=== PATIENT | female | born 1935 | race Caucasian/White ===

== ENCOUNTER 2016-06-26 15:16 | Inpatient (IN) | payer OTHER ==
[2016-05-21 20:00] VITALS: BP 122/77
[~2016-06-26] VITALS: Ht 172.7 cm; Wt 106.9 kg
[~2016-06-26 15:16] MED LIST: CALC625T9 PO; DOCU100C8 PO; DULO30CA2 PO; FURO-93 PO; GABA100C PO; LEVO150T PO; LISI1TAB5 PO; OMEP20CA9 PO; SULF1TAB24 PO; VITA1CAP7 PO; VITAMIN D PO; ZOLP10TA5 PO; [UNRECOGNIZED DRUG - REMARK]
[2016-06-26] MEDS ORDERED: HYDROmorphone 1 MG/ML, 1ML IM STA (16:23)
[2016-06-26] MEDS ORDERED: ONDANSETRON ODT 4 MG PO ONE (16:30)
[2016-06-26] MEDS ORDERED: ONDANSETRON ODT 4 MG ONE (16:42)
[2016-06-26] MEDS ORDERED: HYDROmorphone 1 MG/ML, 1ML ONE (16:43)
[2016-06-26] MEDS ORDERED: SODIUM CHLORIDE FLUSH 10ML SYR IVF ONE (17:30)
[2016-06-26 18:09] LABS: ASPARTATE AMINO TRANSFERASE 13 U/L (15-37); BLOOD UREA NITROGEN 70 mg/dL (7-18)
[2016-06-26] MEDS: SODIUM CHLORIDE 0.9% 1,000 ML IV SCH (19:09)
[2016-06-26 19:27] VITALS: BP 111/66
[2016-06-26 19:28] VITALS: BP 111/66
[2016-06-26] MEDS ORDERED: ENALAPRILAT 1.25 MG/ML, 2ML IVPush PRN (19:30)
[2016-06-26] MEDS ORDERED: MORPHINE SULFATE 4 MG/ML, 1ML IVPush PRN (19:30)
[2016-06-26] MEDS: FUROSEMIDE 20 MG TABLET PO SCH (21:00)
[2016-06-26] MEDS ORDERED: HYDROmorphone 1 MG/ML, 1ML IV SCH (21:00)
[2016-06-26] MEDS: ZOLPIDEM 10MG TABLET PO SCH (22:25)
[2016-06-26] MEDS: GABAPENTIN 100 MG CAPSULE PO SCH (22:25)
[2016-06-26] MEDS: HYDROmorphone 1 MG/ML, 1ML IV PRN (22:25)
[2016-06-26] MEDS: HEPARIN 5,000 UNITS/ML, 1ML SQ SCH (22:25)
[2016-06-27 02:06] VITALS: BP 122/76
[2016-06-27 05:36] LABS: BLOOD UREA NITROGEN 60 mg/dL (7-18)
[2016-06-27] MEDS: HEPARIN 5,000 UNITS/ML, 1ML SQ SCH ×3 (07:00→22:09)
[2016-06-27 07:31] VITALS: BP 99/62
[2016-06-27] MEDS: FUROSEMIDE 20 MG TABLET PO SCH ×2 (09:00→20:46)
[2016-06-27] MEDS ORDERED: VITAMIN B COMPLEX PO SCH (09:00)
[2016-06-27] MEDS ORDERED: VITAMIN D PO SCH (09:00)
[2016-06-27] MEDS: LEVOTHYROXINE 150 MCG TABLET PO SCH (09:05)
[2016-06-27] MEDS: SENNA/DOCUSATE TABLET PO SCH (09:05)
[2016-06-27] MEDS: LISINOPRIL 20 MG TABLET PO SCH (09:06)
[2016-06-27] MEDS: GABAPENTIN 100 MG CAPSULE PO SCH ×3 (09:06→20:47)
[2016-06-27] MEDS: HYDROCHLOROTHIAZIDE 12.5 MG CAPSULE PO SCH (09:06)
[2016-06-27] MEDS: DULOXETINE 30 MG CAPSULE.DR PO SCH (09:07)
[2016-06-27] MEDS: HYDROmorphone 1 MG/ML, 1ML IV PRN (12:28)
[2016-06-27 12:47] VITALS: BP 106/67
[2016-06-27] MEDS ORDERED: DILAUDID PUMP HOMEINJ SCH (13:00)
[2016-06-27] MEDS: SODIUM CHLORIDE 0.9% 1,000 ML IV SCH (15:25)
[2016-06-27] MEDS: OXYcodone/APAP 5/325MG TABLET PO PRN ×2 (16:06→22:09)
[2016-06-27 20:43] VITALS: BP 100/75
[2016-06-27] MEDS: ZOLPIDEM 10MG TABLET PO SCH (20:47)
[2016-06-28 03:05] VITALS: BP 121/72
[2016-06-28] MEDS: OXYcodone/APAP 5/325MG TABLET PO PRN ×3 (03:10→16:58)
[2016-06-28] MEDS: HEPARIN 5,000 UNITS/ML, 1ML SQ SCH ×3 (05:58→22:00)
[2016-06-28] MEDS: LEVOTHYROXINE 150 MCG TABLET PO SCH (05:58)
[2016-06-28 08:34] VITALS: BP 100/65
[2016-06-28] MEDS: LISINOPRIL 20 MG TABLET PO SCH (09:00)
[2016-06-28] MEDS: GABAPENTIN 100 MG CAPSULE PO SCH ×3 (09:31→21:38)
[2016-06-28] MEDS: FUROSEMIDE 20 MG TABLET PO SCH ×2 (09:31→21:00)
[2016-06-28] MEDS: DULOXETINE 30 MG CAPSULE.DR PO SCH (09:31)
[2016-06-28] MEDS: HYDROCHLOROTHIAZIDE 12.5 MG CAPSULE PO SCH (09:31)
[2016-06-28] MEDS: SENNA/DOCUSATE TABLET PO SCH (09:32)
[2016-06-28 15:36] VITALS: BP 98/61
[2016-06-28] MEDS ORDERED: SODIUM CHLORIDE 0.9% 1,000 ML IV SCH (19:09)
[2016-06-28 19:30] VITALS: BP 109/67
[2016-06-28] MEDS: ZOLPIDEM 10MG TABLET PO SCH (21:38)
[2016-06-29 01:45] VITALS: BP_SYST 109; BP_SYST 61; BP_DIAS 72; BP_DIAS 83
[2016-06-29] MEDS: LEVOTHYROXINE 150 MCG TABLET PO SCH (05:36)
[2016-06-29] MEDS: HEPARIN 5,000 UNITS/ML, 1ML SQ SCH ×3 (05:39→22:02)
[2016-06-29 06:58] VITALS: BP 130/78
[2016-06-29] MEDS: SENNA/DOCUSATE TABLET PO SCH (09:00)
[2016-06-29] MEDS: FUROSEMIDE 20 MG TABLET PO SCH ×2 (09:24→21:00)
[2016-06-29] MEDS: DULOXETINE 30 MG CAPSULE.DR PO SCH (09:25)
[2016-06-29] MEDS: HYDROCHLOROTHIAZIDE 12.5 MG CAPSULE PO SCH (09:25)
[2016-06-29] MEDS: OXYcodone/APAP 5/325MG TABLET PO PRN ×2 (09:26→14:19)
[2016-06-29] MEDS: LISINOPRIL 20 MG TABLET PO SCH (09:26)
[2016-06-29] MEDS: GABAPENTIN 100 MG CAPSULE PO SCH ×3 (09:26→21:59)
[2016-06-29 12:44] VITALS: BP 147/79
[2016-06-29 20:01] VITALS: BP 122/77
[2016-06-29] MEDS: ZOLPIDEM 10MG TABLET PO SCH (21:58)
[2016-06-30 02:09] VITALS: BP 138/80
[2016-06-30 05:35] LABS: BLOOD UREA NITROGEN 20 mg/dL (7-18)
[2016-06-30] MEDS: LEVOTHYROXINE 150 MCG TABLET PO SCH (05:43)
[2016-06-30] MEDS: HEPARIN 5,000 UNITS/ML, 1ML SQ SCH ×3 (05:46→22:18)
[2016-06-30 07:19] VITALS: BP 142/80
[2016-06-30] MEDS: SENNA/DOCUSATE TABLET PO SCH (08:44)
[2016-06-30] MEDS: FUROSEMIDE 20 MG TABLET PO SCH ×2 (08:44→21:00)
[2016-06-30] MEDS: OXYcodone/APAP 5/325MG TABLET PO PRN ×3 (08:53→19:35)
[2016-06-30] MEDS: HYDROCHLOROTHIAZIDE 12.5 MG CAPSULE PO SCH (08:54)
[2016-06-30] MEDS: DULOXETINE 30 MG CAPSULE.DR PO SCH (08:54)
[2016-06-30] MEDS: LISINOPRIL 20 MG TABLET PO SCH (08:54)
[2016-06-30] MEDS: GABAPENTIN 100 MG CAPSULE PO SCH (08:54)
[2016-06-30 12:52] VITALS: BP 107/69
[2016-06-30] MEDS: GABAPENTIN 300 MG CAPSULE PO SCH ×2 (16:03→22:15)
[2016-06-30 20:26] VITALS: BP 141/80
[2016-06-30] MEDS: ZOLPIDEM 10MG TABLET PO SCH (22:07)
[2016-07-01 01:12] VITALS: BP 151/84
[2016-07-01] MEDS: LEVOTHYROXINE 150 MCG TABLET PO SCH (06:21)
[2016-07-01] MEDS: HEPARIN 5,000 UNITS/ML, 1ML SQ SCH ×3 (06:24→22:38)
[2016-07-01 07:38] VITALS: BP 155/86
[2016-07-01] MEDS: DULOXETINE 30 MG CAPSULE.DR PO SCH (08:30)
[2016-07-01] MEDS: GABAPENTIN 300 MG CAPSULE PO SCH ×3 (08:43→22:38)
[2016-07-01] MEDS: LISINOPRIL 20 MG TABLET PO SCH (08:43)
[2016-07-01] MEDS: HYDROCHLOROTHIAZIDE 12.5 MG CAPSULE PO SCH (08:43)
[2016-07-01] MEDS: OXYcodone/APAP 5/325MG TABLET PO PRN ×3 (08:43→22:38)
[2016-07-01] MEDS: FUROSEMIDE 20 MG TABLET PO SCH ×2 (08:43→21:00)
[2016-07-01] MEDS: SENNA/DOCUSATE TABLET PO SCH (08:45)
[2016-07-01 14:24] VITALS: BP 92/48
[2016-07-01 15:35] VITALS: BP 112/54
[2016-07-01 21:35] VITALS: BP 130/60
[2016-07-01] MEDS: ZOLPIDEM 10MG TABLET PO SCH (22:38)
[2016-07-02] MEDS: OXYcodone/APAP 5/325MG TABLET PO PRN ×3 (03:46→13:36)
[2016-07-02 03:48] VITALS: BP 134/71
[2016-07-02] MEDS: HEPARIN 5,000 UNITS/ML, 1ML SQ SCH ×2 (06:41→15:32)
[2016-07-02] MEDS: LEVOTHYROXINE 150 MCG TABLET PO SCH (06:41)
[2016-07-02 07:10] VITALS: BP 142/67
[2016-07-02] MEDS ORDERED: OXYBUTYNIN CHLORIDE 5 MG TABLET PO SCH (09:00)
[2016-07-02] MEDS: FUROSEMIDE 20 MG TABLET PO SCH (09:00)
[2016-07-02] MEDS: SENNA/DOCUSATE TABLET PO SCH (09:00)
[2016-07-02] MEDS: GABAPENTIN 300 MG CAPSULE PO SCH ×2 (09:37→15:32)
[2016-07-02] MEDS: LISINOPRIL 20 MG TABLET PO SCH (09:37)
[2016-07-02] MEDS: DULOXETINE 30 MG CAPSULE.DR PO SCH (09:37)
[2016-07-02] MEDS: HYDROCHLOROTHIAZIDE 12.5 MG CAPSULE PO SCH (09:38)
[2016-07-02 12:55] VITALS: BP 97/62
[2016-07-02] MEDS ORDERED: FURO-93 PO (14:00)
[2016-07-02] MEDS ORDERED: OXYB5TAB7 PO (14:00)
== END 2016-07-02 16:30 | DRG 554 ==
LOC: ED 15:52 → EDIP 17:35 → 3NE 18:34
PROVIDERS: ADMIT Family Medicine; ATTEND Family Medicine
DX: M15.9 Polyosteoarthritis, unspecified (principal); N17.9 Acute kidney failure, unspecified; E66.01 Morbid (severe) obesity due to excess calories; D63.8 Anemia in other chronic diseases classified elsewhere; E03.9 Hypothyroidism, unspecified; E86.0 Dehydration; G89.29 Other chronic pain; J44.9 Chronic obstructive pulmonary disease, unspecified; N32.81 Overactive bladder; R32 Unspecified urinary incontinence; Z66 Do not resuscitate; Z96.642 Presence of left artificial hip joint; Z87.891 Personal history of nicotine dependence; Z88.5 Allergy status to narcotic agent; Z91.048 Other nonmedicinal substance allergy status; Z68.35 Body mass index [BMI] 35.0-35.9, adult; Z83.3 Family history of diabetes mellitus; Z82.49 Family history of ischemic heart disease and other diseases of the circulatory system; Z79.899 Other long term (current) drug therapy; R53.81 Other malaise; I10 Essential (primary) hypertension
CPT/HCPCS: 36415; 80048; 80053; 85025; 93005; J1170; J1644; Q0162; J7030

== ENCOUNTER → 2017-02-19 | Outpatient (CLI) | payer OTHER ==
[~2017-02-19] MED LIST changes: +ACET-1600 PO; +DOCU100C33 PO; -DOCU100C8 PO; +FLUT1BLS INH; +GABA-826 PO; +OXYB5TAB7 PO; +OXYC20TA42 PO; +OXYC5TAB3 PO
== END ==
LOC: CFH 13:22
PROVIDERS: ATTEND Internal Medicine Cardiovascular Disease
DX: Z01.818 Encounter for other preprocedural examination (principal); I08.0 Rheumatic disorders of both mitral and aortic valves
CPT/HCPCS: 93306

== ENCOUNTER → 2017-02-24 | Outpatient (CLI) | payer OTHER | LOC: CVU 10:06 | PROVIDERS: ATTEND Internal Medicine Cardiovascular Disease | DX: Z01.810 Encounter for preprocedural cardiovascular examination (principal); I35.0 Nonrheumatic aortic (valve) stenosis; R60.0 Localized edema; G62.9 Polyneuropathy, unspecified | CPT/HCPCS: 93970 ==

== ENCOUNTER → 2017-03-22 | Outpatient (CLI) | payer OTHER ==
[~2017-03-22] MED LIST changes: +REGADENOSON 0.4 MG/5 ML SYRINGE ONE
== END | disposition home or self-care (01) ==
LOC: RAD 11:47
PROVIDERS: ATTEND Internal Medicine Cardiovascular Disease
DX: Z01.810 Encounter for preprocedural cardiovascular examination (principal); I35.0 Nonrheumatic aortic (valve) stenosis; R06.02 Shortness of breath; R60.9 Edema, unspecified
CPT/HCPCS: 78452; 93017; A9502; J2785

== ENCOUNTER → 2017-07-07 | Outpatient (CLI) | payer OTHER ==
[~2017-07-07] MED LIST changes: +FLUO10CA7 PO; +GABA800T2 PO; +NAPR220C2 PO; +OMEP20TA62 PO; +OMNIPAQUE 350 MG/ML, 150 ML BOTTLE ONE; -REGADENOSON 0.4 MG/5 ML SYRINGE ONE
== END ==
LOC: RAD 09:59
PROVIDERS: ATTEND Internal Medicine Cardiovascular Disease
DX: Z01.818 Encounter for other preprocedural examination (principal); J98.11 Atelectasis; J43.9 Emphysema, unspecified; K76.0 Fatty (change of) liver, not elsewhere classified; I10 Essential (primary) hypertension; I25.10 Atherosclerotic heart disease of native coronary artery without angina pectoris; K57.90 Diverticulosis of intestine, part unspecified, without perforation or abscess without bleeding; I70.0 Atherosclerosis of aorta; M16.11 Unilateral primary osteoarthritis, right hip
CPT/HCPCS: 71275; 74174; 93880; 94060; 94726; 94729; Q9967

== ENCOUNTER → 2017-09-13 | Outpatient (CLI) | payer OTHER ==
[~2017-09-13] MED LIST changes: -OMNIPAQUE 350 MG/ML, 150 ML BOTTLE ONE
== END | disposition home or self-care (01) ==
LOC: WOUND 10:30
PROVIDERS: ATTEND Internal Medicine
DX: I87.333 Chronic venous hypertension (idiopathic) with ulcer and inflammation of bilateral lower extremity (principal); L97.222 Non-pressure chronic ulcer of left calf with fat layer exposed; L97.212 Non-pressure chronic ulcer of right calf with fat layer exposed; I89.0 Lymphedema, not elsewhere classified; K21.9 Gastro-esophageal reflux disease without esophagitis; J43.9 Emphysema, unspecified; M16.11 Unilateral primary osteoarthritis, right hip; I25.10 Atherosclerotic heart disease of native coronary artery without angina pectoris; F32.9 Major depressive disorder, single episode, unspecified; E03.9 Hypothyroidism, unspecified; G62.9 Polyneuropathy, unspecified; Z90.710 Acquired absence of both cervix and uterus; Z87.891 Personal history of nicotine dependence
CPT/HCPCS: 87070; 87077; 87186; 87205; 97597; 97598

== ENCOUNTER → 2017-09-20 | Outpatient (CLI) | payer OTHER | END | disposition home or self-care (01) | LOC: WOUND 10:40 | PROVIDERS: ATTEND Internal Medicine | DX: I87.333 Chronic venous hypertension (idiopathic) with ulcer and inflammation of bilateral lower extremity (principal); L97.222 Non-pressure chronic ulcer of left calf with fat layer exposed; L97.212 Non-pressure chronic ulcer of right calf with fat layer exposed; I89.0 Lymphedema, not elsewhere classified; K21.9 Gastro-esophageal reflux disease without esophagitis; J43.9 Emphysema, unspecified; M16.11 Unilateral primary osteoarthritis, right hip; I25.10 Atherosclerotic heart disease of native coronary artery without angina pectoris; F32.9 Major depressive disorder, single episode, unspecified; E03.9 Hypothyroidism, unspecified; G62.9 Polyneuropathy, unspecified; Z90.710 Acquired absence of both cervix and uterus; Z87.891 Personal history of nicotine dependence | CPT/HCPCS: 97597; 97598 ==

== ENCOUNTER 2017-10-04 14:09 | Inpatient (IN) | payer OTHER ==
[~2017-10-04] VITALS: Ht 172.7 cm; Wt 111.5 kg
[~2017-10-04 14:09] MED LIST changes: -DOXY100T PO; -LEVO750T26 PO
[2017-10-04] MEDS ORDERED: SODIUM CHLORIDE FLUSH 10ML SYR IVF ONE (14:30)
[2017-10-04 14:49] LABS: BASOPHILS # (AUTO) 0.03 x10^3/uL (0-0.1); BASOPHILS % (AUTO) 0 % (0-1); EOSINOPHILS # (AUTO) 0.14 x10^3/uL (0-0.4); EOSINOPHILS % (AUTO) 2 % (1-7); LYMPHOCYTES # (AUTO) 0.99 x10^3/uL (1-3.4); LYMPHOCYTES % (AUTO) 13 % (22-44); MD NO; MEAN CORPUSCULAR HEMOGLOBIN 29.1 pg (27.0-34.8); MEAN CORPUSCULAR HGB CONC 32.9 g/dL (32.4-35.8); MEAN CORPUSCULAR VOLUME 88.4 fL (80-100); MEAN PLATELET VOLUME 6.7 fL (7.4-10.4); MONOCYTES # (AUTO) 0.45 x10^3/uL (0.2-0.8); MONOCYTES % (AUTO) 6 % (2-9); NEUTROPHILS % (AUTO) 78 % (42-75); PLATELET COUNT 448 x10^3/uL (130-400); RED BLOOD COUNT 5.04 x10^6/uL (3.82-5.3); RED CELL DISTRIBUTION WIDTH 15.2 % (9.6-15.2)
[2017-10-04 15:00] LABS: ALANINE AMINOTRANSFERASE 15 U/L (12-78); ALBUMIN 3.8 g/dL (3.4-5.0); ANION GAP 10 mmol/L (5-15); CALCIUM 9.4 mg/dL (8.5-10.1); CHLORIDE 96 mmol/L (98-107); CREATININE 1.05 mg/dL (0.55-1.02)
[2017-10-04 15:04] LABS: ALKALINE PHOSPHATASE 84 U/L (45-117); BILIRUBIN,TOTAL 0.4 mg/dL (0.2-1.0); TOTAL PROTEIN 7.9 g/dL (6.4-8.2)
[2017-10-04] MEDS ORDERED: AMPICILLIN/SULBACTAM 3 GM in SODIUM CHLORIDE 0.9% 100 ML IV ONE (17:30)
[2017-10-04 18:27] VITALS: BP 158/87
[2017-10-04 19:10] VITALS: BP 134/77
[2017-10-04] MEDS ORDERED: SODIUM CHLORIDE 0.9% 1,000 ML IV SCH (19:35)
[2017-10-04] MEDS ORDERED: ONDANSETRON ODT 4 MG PO PRN (20:00)
[2017-10-04] MEDS ORDERED: POLYETHYLENE GLYCOL 17 GM PACKET PO PRN (20:00)
[2017-10-04] MEDS ORDERED: DOCUSATE 100 MG CAPSULE PO PRN (20:00)
[2017-10-04] MEDS ORDERED: ONDANSETRON 2MG/ML, 2ML IVPush PRN (20:00)
[2017-10-04] MEDS: ENOXAPARIN 40 MG/0.4 ML SQ SCH (20:07)
[2017-10-04] MEDS: GABAPENTIN 400 MG CAPSULE PO SCH (20:07)
[2017-10-04] MEDS: DIPHENHYDRAMINE/ZINC CRM 2%, 30GM TP SCH (21:00)
[2017-10-05 01:02] VITALS: BP 113/74
[2017-10-05 04:50] LABS: BASOPHILS # (AUTO) 0.06 x10^3/uL (0-0.1); BASOPHILS % (AUTO) 1 % (0-1); EOSINOPHILS # (AUTO) 0.17 x10^3/uL (0-0.4); EOSINOPHILS % (AUTO) 3 % (1-7); LYMPHOCYTES # (AUTO) 1.16 x10^3/uL (1-3.4); LYMPHOCYTES % (AUTO) 19 % (22-44); MD NO; MEAN CORPUSCULAR HEMOGLOBIN 29.5 pg (27.0-34.8); MEAN CORPUSCULAR HGB CONC 33.1 g/dL (32.4-35.8); MEAN PLATELET VOLUME 6.7 fL (7.4-10.4); MONOCYTES # (AUTO) 0.58 x10^3/uL (0.2-0.8); MONOCYTES % (AUTO) 10 % (2-9); NEUTROPHILS # (AUTO) 4.11 x10^3/uL (1.8-6.8); NEUTROPHILS % (AUTO) 68 % (42-75); PLATELET COUNT 387 x10^3/uL (130-400); RED CELL DISTRIBUTION WIDTH 15.1 % (9.6-15.2)
[2017-10-05] MEDS: DIPHENHYDRAMINE/ZINC CRM 2%, 30GM TP SCH ×5 (05:33→20:48)
[2017-10-05] MEDS: LEVOTHYROXINE 150 MCG TABLET PO SCH (06:12)
[2017-10-05 07:02] VITALS: BP 98/61
[2017-10-05 08:20] LABS: HCT (SEDRATE) 38.5 % (34.6-47.8)
[2017-10-05] MEDS: CALCIUM POLYCARBOPHIL 625 MG TABLET PO SCH (08:21)
[2017-10-05] MEDS: DULOXETINE 30 MG CAPSULE.DR PO SCH (08:21)
[2017-10-05] MEDS: GABAPENTIN 400 MG CAPSULE PO SCH ×3 (08:21→20:44)
[2017-10-05] MEDS: OMEPRAZOLE 20 MG CAPSULE.DR PO SCH (08:21)
[2017-10-05] MEDS: HYDROCHLOROTHIAZIDE 12.5 MG CAPSULE PO SCH (08:22)
[2017-10-05] MEDS: FLUOXETINE 10 MG CAP PO SCH (08:22)
[2017-10-05] MEDS: LISINOPRIL 20 MG TABLET PO SCH (08:22)
[2017-10-05 12:04] VITALS: BP 86/50
[2017-10-05 12:10] VITALS: BP 93/59
[2017-10-05 18:53] VITALS: BP 93/58
[2017-10-05] MEDS: ENOXAPARIN 40 MG/0.4 ML SQ SCH (20:44)
[2017-10-06 00:12] VITALS: BP 98/61
[2017-10-06] MEDS: LEVOTHYROXINE 150 MCG TABLET PO SCH (06:25)
[2017-10-06] MEDS: DIPHENHYDRAMINE/ZINC CRM 2%, 30GM TP SCH ×4 (06:27→19:40)
[2017-10-06 06:50] VITALS: BP 102/60
[2017-10-06] MEDS: GABAPENTIN 400 MG CAPSULE PO SCH ×3 (08:27→19:40)
[2017-10-06] MEDS: OMEPRAZOLE 20 MG CAPSULE.DR PO SCH (08:27)
[2017-10-06] MEDS: CALCIUM POLYCARBOPHIL 625 MG TABLET PO SCH (08:27)
[2017-10-06] MEDS: DULOXETINE 30 MG CAPSULE.DR PO SCH (08:27)
[2017-10-06] MEDS: FLUOXETINE 10 MG CAP PO SCH (08:28)
[2017-10-06] MEDS: LISINOPRIL 20 MG TABLET PO SCH (08:28)
[2017-10-06] MEDS: HYDROCHLOROTHIAZIDE 12.5 MG CAPSULE PO SCH (08:30)
[2017-10-06] MEDS ORDERED: DOXY100T PO (08:44)
[2017-10-06 13:54] VITALS: BP 129/66
[2017-10-06 14:07] VITALS: BP 92/57
[2017-10-06 18:40] VITALS: BP 102/63
[2017-10-06] MEDS: ENOXAPARIN 40 MG/0.4 ML SQ SCH (19:39)
[2017-10-06] MEDS ORDERED: VANCOMYCIN PER PHARMACY MC PRN (20:30)
[2017-10-06] MEDS ORDERED: PHARMACOKINETIC MONITORING MC PRN (21:00)
[2017-10-06] MEDS ORDERED: PHARMACOKINETIC CONSULTATION MC ONE (21:00)
[2017-10-06] MEDS ORDERED: CIPROFLOXACIN/PMX 400MG/200ML 200 ML IV SCH (21:00)
[2017-10-06] MEDS: AMPICILLIN 500MG CAPSULE PO SCH (22:21)
[2017-10-06] MEDS: CIPROFLOXACIN 500 MG TABLET PO SCH (22:21)
[2017-10-06] MEDS ORDERED: VANCOMYCIN 2,000 MG in SODIUM CHLORIDE 0.9% 500 ML IV SCH (23:00)
[2017-10-07 00:25] VITALS: BP 98/56
[2017-10-07] MEDS: LEVOTHYROXINE 150 MCG TABLET PO SCH (05:30)
[2017-10-07] MEDS: AMPICILLIN 500MG CAPSULE PO SCH ×4 (05:30→21:12)
[2017-10-07] MEDS: DIPHENHYDRAMINE/ZINC CRM 2%, 30GM TP SCH ×4 (05:33→21:15)
[2017-10-07 06:46] VITALS: BP 113/76
[2017-10-07] MEDS: LISINOPRIL 20 MG TABLET PO SCH (09:00)
[2017-10-07] MEDS: CALCIUM POLYCARBOPHIL 625 MG TABLET PO SCH (09:12)
[2017-10-07] MEDS: GABAPENTIN 400 MG CAPSULE PO SCH ×3 (09:12→21:12)
[2017-10-07] MEDS: CIPROFLOXACIN 500 MG TABLET PO SCH ×2 (09:12→21:12)
[2017-10-07] MEDS: FLUOXETINE 10 MG CAP PO SCH (09:13)
[2017-10-07] MEDS: OMEPRAZOLE 20 MG CAPSULE.DR PO SCH (09:14)
[2017-10-07] MEDS: HYDROCHLOROTHIAZIDE 12.5 MG CAPSULE PO SCH (09:14)
[2017-10-07] MEDS: DULOXETINE 30 MG CAPSULE.DR PO SCH (09:14)
[2017-10-07 12:56] VITALS: BP 96/66
[2017-10-07 19:33] VITALS: BP 99/66
[2017-10-07] MEDS: ENOXAPARIN 40 MG/0.4 ML SQ SCH (21:12)
[2017-10-08 01:15] VITALS: BP 103/57
[2017-10-08 04:58] LABS: BASOPHILS # (AUTO) 0.07 x10^3/uL (0-0.1); BASOPHILS % (AUTO) 1 % (0-1); EOSINOPHILS # (AUTO) 0.15 x10^3/uL (0-0.4); EOSINOPHILS % (AUTO) 2 % (1-7); LYMPHOCYTES # (AUTO) 1.01 x10^3/uL (1-3.4); LYMPHOCYTES % (AUTO) 15 % (22-44); MD NO; MEAN CORPUSCULAR HEMOGLOBIN 29.4 pg (27.0-34.8); MEAN CORPUSCULAR HGB CONC 32.9 g/dL (32.4-35.8); MEAN CORPUSCULAR VOLUME 89.4 fL (80-100); MEAN PLATELET VOLUME 6.6 fL (7.4-10.4); MONOCYTES # (AUTO) 0.58 x10^3/uL (0.2-0.8); MONOCYTES % (AUTO) 8 % (2-9); NEUTROPHILS # (AUTO) 5.14 x10^3/uL (1.8-6.8); NEUTROPHILS % (AUTO) 74 % (42-75); PLATELET COUNT 384 x10^3/uL (130-400); RED BLOOD COUNT 4.36 x10^6/uL (3.82-5.3); RED CELL DISTRIBUTION WIDTH 14.7 % (9.6-15.2)
[2017-10-08 05:07] LABS: ANION GAP 3 mmol/L (5-15); CALCIUM 8.2 mg/dL (8.5-10.1); CHLORIDE 97 mmol/L (98-107); CREATININE 0.87 mg/dL (0.55-1.02)
[2017-10-08] MEDS: LEVOTHYROXINE 150 MCG TABLET PO SCH (05:31)
[2017-10-08] MEDS: AMPICILLIN 500MG CAPSULE PO SCH ×2 (05:31→10:22)
[2017-10-08] MEDS: DIPHENHYDRAMINE/ZINC CRM 2%, 30GM TP SCH ×2 (05:32→10:22)
[2017-10-08 07:02] VITALS: BP 110/73
[2017-10-08] MEDS: CIPROFLOXACIN 500 MG TABLET PO SCH (07:43)
[2017-10-08] MEDS: FLUOXETINE 10 MG CAP PO SCH (07:43)
[2017-10-08] MEDS: GABAPENTIN 400 MG CAPSULE PO SCH (07:43)
[2017-10-08] MEDS: CALCIUM POLYCARBOPHIL 625 MG TABLET PO SCH (07:43)
[2017-10-08] MEDS: HYDROCHLOROTHIAZIDE 12.5 MG CAPSULE PO SCH (07:43)
[2017-10-08] MEDS: OMEPRAZOLE 20 MG CAPSULE.DR PO SCH (07:43)
[2017-10-08] MEDS: DULOXETINE 30 MG CAPSULE.DR PO SCH (07:44)
[2017-10-08] MEDS: LISINOPRIL 20 MG TABLET PO SCH (07:44)
[2017-10-08] MEDS ORDERED: LEVO750T26 PO (13:22)
== END 2017-10-08 13:17 | disposition home health service (06) | DRG 605 ==
LOC: ED 17:50 → EDIP 17:59 → 3NE 18:10
PROVIDERS: ADMIT Hospitalist; ATTEND Hospitalist
DX: S81.802A Unspecified open wound, left lower leg, initial encounter (principal); F11.20 Opioid dependence, uncomplicated; S81.801A Unspecified open wound, right lower leg, initial encounter; E03.9 Hypothyroidism, unspecified; G89.4 Chronic pain syndrome; I12.9 Hypertensive chronic kidney disease with stage 1 through stage 4 chronic kidney disease, or unspecified chronic kidney disease; B96.5 Pseudomonas (aeruginosa) (mallei) (pseudomallei) as the cause of diseases classified elsewhere; M19.90 Unspecified osteoarthritis, unspecified site; R26.2 Difficulty in walking, not elsewhere classified; J44.9 Chronic obstructive pulmonary disease, unspecified; B95.2 Enterococcus as the cause of diseases classified elsewhere; N18.9 Chronic kidney disease, unspecified; E66.9 Obesity, unspecified; X58.XXXA Exposure to other specified factors, initial encounter; Z87.891 Personal history of nicotine dependence; Z90.710 Acquired absence of both cervix and uterus; Z90.49 Acquired absence of other specified parts of digestive tract; Z88.5 Allergy status to narcotic agent; Z88.8 Allergy status to other drugs, medicaments and biological substances; Z72.89 Other problems related to lifestyle; Z79.899 Other long term (current) drug therapy; Y93.89 Activity, other specified; Y92.89 Other specified places as the place of occurrence of the external cause; Y99.8 Other external cause status; Z68.37 Body mass index [BMI] 37.0-37.9, adult
CPT/HCPCS: 36415; 80048; 80053; 83605; 83880; 84145; 85025; 85651; 86140; 87040; 87070; 87205; 99285; J0295; J1650; J7030

== ENCOUNTER → 2017-10-04 | Outpatient (CLI) | payer OTHER ==
[~2017-10-04] MED LIST changes: +DOXY100T PO; +LEVO750T26 PO
== END | disposition home or self-care (01) ==
LOC: WOUND 13:33
PROVIDERS: ATTEND Internal Medicine
DX: I87.333 Chronic venous hypertension (idiopathic) with ulcer and inflammation of bilateral lower extremity (principal); L97.222 Non-pressure chronic ulcer of left calf with fat layer exposed; L97.212 Non-pressure chronic ulcer of right calf with fat layer exposed; I89.0 Lymphedema, not elsewhere classified; K21.9 Gastro-esophageal reflux disease without esophagitis; J43.9 Emphysema, unspecified; M16.11 Unilateral primary osteoarthritis, right hip; I25.10 Atherosclerotic heart disease of native coronary artery without angina pectoris; F32.9 Major depressive disorder, single episode, unspecified; E03.9 Hypothyroidism, unspecified; G62.9 Polyneuropathy, unspecified; G89.4 Chronic pain syndrome; Z90.710 Acquired absence of both cervix and uterus; Z87.891 Personal history of nicotine dependence
CPT/HCPCS: 87070; 87077; 87186; 87205; 99215

== ENCOUNTER → 2017-10-19 | Outpatient (CLI) | payer OTHER ==
[~2017-10-19] MED LIST changes: +DOXY100T PO; +LEVO750T26 PO
== END | disposition home or self-care (01) ==
LOC: WOUND 13:00
PROVIDERS: ATTEND Nurse Practitioner Family
DX: I87.333 Chronic venous hypertension (idiopathic) with ulcer and inflammation of bilateral lower extremity (principal); L97.222 Non-pressure chronic ulcer of left calf with fat layer exposed; L97.212 Non-pressure chronic ulcer of right calf with fat layer exposed; I89.0 Lymphedema, not elsewhere classified; G89.4 Chronic pain syndrome; E03.9 Hypothyroidism, unspecified; E66.9 Obesity, unspecified; M19.90 Unspecified osteoarthritis, unspecified site; I25.10 Atherosclerotic heart disease of native coronary artery without angina pectoris; J43.9 Emphysema, unspecified; K21.9 Gastro-esophageal reflux disease without esophagitis; F32.9 Major depressive disorder, single episode, unspecified; G62.9 Polyneuropathy, unspecified; I12.9 Hypertensive chronic kidney disease with stage 1 through stage 4 chronic kidney disease, or unspecified chronic kidney disease; N18.9 Chronic kidney disease, unspecified; M16.11 Unilateral primary osteoarthritis, right hip; F11.20 Opioid dependence, uncomplicated; Z88.5 Allergy status to narcotic agent; Z88.8 Allergy status to other drugs, medicaments and biological substances; Z90.49 Acquired absence of other specified parts of digestive tract; Z90.710 Acquired absence of both cervix and uterus; Z87.891 Personal history of nicotine dependence; Z79.899 Other long term (current) drug therapy
CPT/HCPCS: 97597; 97598

== ENCOUNTER → 2017-10-27 | Outpatient (CLI) | payer OTHER | END | disposition home or self-care (01) | LOC: WOUND 13:49 | PROVIDERS: ATTEND Internal Medicine | DX: I87.333 Chronic venous hypertension (idiopathic) with ulcer and inflammation of bilateral lower extremity (principal); L97.212 Non-pressure chronic ulcer of right calf with fat layer exposed; L97.222 Non-pressure chronic ulcer of left calf with fat layer exposed; I12.9 Hypertensive chronic kidney disease with stage 1 through stage 4 chronic kidney disease, or unspecified chronic kidney disease; N18.9 Chronic kidney disease, unspecified; F32.9 Major depressive disorder, single episode, unspecified; G89.4 Chronic pain syndrome; J43.9 Emphysema, unspecified; I89.0 Lymphedema, not elsewhere classified; G62.9 Polyneuropathy, unspecified; K21.9 Gastro-esophageal reflux disease without esophagitis; E03.9 Hypothyroidism, unspecified; M16.11 Unilateral primary osteoarthritis, right hip; I25.10 Atherosclerotic heart disease of native coronary artery without angina pectoris; E66.9 Obesity, unspecified; Z68.37 Body mass index [BMI] 37.0-37.9, adult; Z88.5 Allergy status to narcotic agent; Z90.710 Acquired absence of both cervix and uterus; Z90.49 Acquired absence of other specified parts of digestive tract; Z87.891 Personal history of nicotine dependence; Z88.8 Allergy status to other drugs, medicaments and biological substances | CPT/HCPCS: 97597; 97598 ==

== ENCOUNTER → 2017-10-29 | Outpatient (CLI) | payer OTHER | END | disposition home or self-care (01) | LOC: CVU 09:45 | PROVIDERS: ATTEND Internal Medicine | DX: I87.331 Chronic venous hypertension (idiopathic) with ulcer and inflammation of right lower extremity (principal); L97.222 Non-pressure chronic ulcer of left calf with fat layer exposed; L97.212 Non-pressure chronic ulcer of right calf with fat layer exposed; I10 Essential (primary) hypertension; Z87.891 Personal history of nicotine dependence | CPT/HCPCS: 93922; 93925 ==

== ENCOUNTER → 2017-11-01 | Outpatient (CLI) | payer OTHER | END | disposition home or self-care (01) | LOC: WOUND 14:18 | PROVIDERS: ATTEND Internal Medicine | DX: I87.333 Chronic venous hypertension (idiopathic) with ulcer and inflammation of bilateral lower extremity (principal); L97.222 Non-pressure chronic ulcer of left calf with fat layer exposed; L97.212 Non-pressure chronic ulcer of right calf with fat layer exposed; I89.0 Lymphedema, not elsewhere classified; K21.9 Gastro-esophageal reflux disease without esophagitis; F32.9 Major depressive disorder, single episode, unspecified; E03.9 Hypothyroidism, unspecified; G62.9 Polyneuropathy, unspecified; Z87.891 Personal history of nicotine dependence | CPT/HCPCS: 97597; 97598 ==

== ENCOUNTER → 2017-11-08 | Outpatient (CLI) | payer OTHER | END | disposition home or self-care (01) | LOC: WOUND 14:12 | PROVIDERS: ATTEND Internal Medicine | DX: I87.313 Chronic venous hypertension (idiopathic) with ulcer of bilateral lower extremity (principal); L97.222 Non-pressure chronic ulcer of left calf with fat layer exposed; L97.212 Non-pressure chronic ulcer of right calf with fat layer exposed; I12.9 Hypertensive chronic kidney disease with stage 1 through stage 4 chronic kidney disease, or unspecified chronic kidney disease; N18.9 Chronic kidney disease, unspecified; F32.9 Major depressive disorder, single episode, unspecified; G62.9 Polyneuropathy, unspecified; G89.4 Chronic pain syndrome; J43.9 Emphysema, unspecified; I89.0 Lymphedema, not elsewhere classified; E03.9 Hypothyroidism, unspecified; G90.09 Other idiopathic peripheral autonomic neuropathy; K21.9 Gastro-esophageal reflux disease without esophagitis; I25.10 Atherosclerotic heart disease of native coronary artery without angina pectoris; M16.11 Unilateral primary osteoarthritis, right hip; E66.9 Obesity, unspecified; Z68.37 Body mass index [BMI] 37.0-37.9, adult; Z90.710 Acquired absence of both cervix and uterus; Z90.49 Acquired absence of other specified parts of digestive tract; Z87.891 Personal history of nicotine dependence | CPT/HCPCS: 97597; 97598 ==

== ENCOUNTER → 2017-11-22 | Outpatient (CLI) | payer OTHER | END | disposition home or self-care (01) | LOC: WOUND 13:47 | PROVIDERS: ATTEND Internal Medicine | DX: I87.333 Chronic venous hypertension (idiopathic) with ulcer and inflammation of bilateral lower extremity (principal); L97.222 Non-pressure chronic ulcer of left calf with fat layer exposed; L97.212 Non-pressure chronic ulcer of right calf with fat layer exposed; F32.9 Major depressive disorder, single episode, unspecified; G89.4 Chronic pain syndrome; J43.9 Emphysema, unspecified; M86.9 Osteomyelitis, unspecified; M19.91 Primary osteoarthritis, unspecified site; I89.0 Lymphedema, not elsewhere classified; E03.9 Hypothyroidism, unspecified; G62.9 Polyneuropathy, unspecified; K21.9 Gastro-esophageal reflux disease without esophagitis; I25.10 Atherosclerotic heart disease of native coronary artery without angina pectoris; E66.9 Obesity, unspecified; Z68.37 Body mass index [BMI] 37.0-37.9, adult; Z90.710 Acquired absence of both cervix and uterus; Z90.49 Acquired absence of other specified parts of digestive tract; Z87.891 Personal history of nicotine dependence | CPT/HCPCS: 97597; 97598 ==

== ENCOUNTER → 2017-11-29 | Outpatient (CLI) | payer OTHER | END | disposition home or self-care (01) | LOC: WOUND 13:12 | PROVIDERS: ATTEND Internal Medicine | DX: I87.313 Chronic venous hypertension (idiopathic) with ulcer of bilateral lower extremity (principal); L97.222 Non-pressure chronic ulcer of left calf with fat layer exposed; L97.212 Non-pressure chronic ulcer of right calf with fat layer exposed; I73.9 Peripheral vascular disease, unspecified; J43.9 Emphysema, unspecified; G89.4 Chronic pain syndrome; I25.10 Atherosclerotic heart disease of native coronary artery without angina pectoris; K21.9 Gastro-esophageal reflux disease without esophagitis; E03.9 Hypothyroidism, unspecified; F32.9 Major depressive disorder, single episode, unspecified; E66.9 Obesity, unspecified; M86.9 Osteomyelitis, unspecified; G62.9 Polyneuropathy, unspecified; M16.11 Unilateral primary osteoarthritis, right hip; I12.9 Hypertensive chronic kidney disease with stage 1 through stage 4 chronic kidney disease, or unspecified chronic kidney disease; N18.9 Chronic kidney disease, unspecified; F17.210 Nicotine dependence, cigarettes, uncomplicated; F11.20 Opioid dependence, uncomplicated; Z90.710 Acquired absence of both cervix and uterus; Z90.49 Acquired absence of other specified parts of digestive tract; Z88.5 Allergy status to narcotic agent; Z88.8 Allergy status to other drugs, medicaments and biological substances; Z79.4 Long term (current) use of insulin; Z79.82 Long term (current) use of aspirin; Z85.841 Personal history of malignant neoplasm of brain; Z85.3 Personal history of malignant neoplasm of breast; Z68.37 Body mass index [BMI] 37.0-37.9, adult | CPT/HCPCS: 97597; 97598 ==

== ENCOUNTER → 2017-12-06 | Outpatient (CLI) | payer OTHER | END | disposition home or self-care (01) | LOC: WOUND 14:19 | PROVIDERS: ATTEND Internal Medicine | DX: I87.313 Chronic venous hypertension (idiopathic) with ulcer of bilateral lower extremity (principal); L97.222 Non-pressure chronic ulcer of left calf with fat layer exposed; L97.212 Non-pressure chronic ulcer of right calf with fat layer exposed; I73.9 Peripheral vascular disease, unspecified; J43.9 Emphysema, unspecified; I89.0 Lymphedema, not elsewhere classified; G89.4 Chronic pain syndrome; I25.10 Atherosclerotic heart disease of native coronary artery without angina pectoris; K21.9 Gastro-esophageal reflux disease without esophagitis; E03.9 Hypothyroidism, unspecified; F32.9 Major depressive disorder, single episode, unspecified; E66.9 Obesity, unspecified; M86.9 Osteomyelitis, unspecified; G62.9 Polyneuropathy, unspecified; M16.11 Unilateral primary osteoarthritis, right hip; I12.9 Hypertensive chronic kidney disease with stage 1 through stage 4 chronic kidney disease, or unspecified chronic kidney disease; N18.9 Chronic kidney disease, unspecified; G90.09 Other idiopathic peripheral autonomic neuropathy; F11.20 Opioid dependence, uncomplicated; F17.210 Nicotine dependence, cigarettes, uncomplicated; Z90.710 Acquired absence of both cervix and uterus; Z90.49 Acquired absence of other specified parts of digestive tract; Z88.5 Allergy status to narcotic agent; Z88.8 Allergy status to other drugs, medicaments and biological substances; Z85.841 Personal history of malignant neoplasm of brain; Z85.3 Personal history of malignant neoplasm of breast; Z79.4 Long term (current) use of insulin; Z79.82 Long term (current) use of aspirin; Z68.37 Body mass index [BMI] 37.0-37.9, adult; Z79.899 Other long term (current) drug therapy | CPT/HCPCS: 97597; 97598 ==

== ENCOUNTER → 2017-12-27 | Outpatient (CLI) | payer OTHER | END | disposition home or self-care (01) | LOC: WOUND 13:36 | PROVIDERS: ATTEND Internal Medicine | DX: I87.333 Chronic venous hypertension (idiopathic) with ulcer and inflammation of bilateral lower extremity (principal); L97.222 Non-pressure chronic ulcer of left calf with fat layer exposed; L97.212 Non-pressure chronic ulcer of right calf with fat layer exposed; F32.9 Major depressive disorder, single episode, unspecified; G89.29 Other chronic pain; J43.9 Emphysema, unspecified; E03.9 Hypothyroidism, unspecified; G62.9 Polyneuropathy, unspecified; E66.9 Obesity, unspecified; F11.20 Opioid dependence, uncomplicated; K21.9 Gastro-esophageal reflux disease without esophagitis; M16.11 Unilateral primary osteoarthritis, right hip; I73.9 Peripheral vascular disease, unspecified; I25.10 Atherosclerotic heart disease of native coronary artery without angina pectoris; Z79.4 Long term (current) use of insulin; Z90.710 Acquired absence of both cervix and uterus; Z85.3 Personal history of malignant neoplasm of breast; Z85.841 Personal history of malignant neoplasm of brain; Z87.891 Personal history of nicotine dependence; Z90.49 Acquired absence of other specified parts of digestive tract | CPT/HCPCS: 87070; 87077; 87186; 87205; 97597; 97598 ==

== ENCOUNTER 2018-01-03 14:39 | Inpatient (IN) | payer OTHER ==
[~2018-01-03] VITALS: Ht 172.7 cm; Wt 114.0 kg
[2018-01-03 15:26] LABS: BASOPHILS % (AUTO) 0 % (0-1); EOSINOPHILS # (AUTO) 0.28 x10^3/uL (0-0.4); EOSINOPHILS % (AUTO) 5 % (1-7); LYMPHOCYTES # (AUTO) 0.32 x10^3/uL (1-3.4); LYMPHOCYTES % (AUTO) 6 % (22-44); MD NO; MEAN CORPUSCULAR HEMOGLOBIN 29.7 pg (27.0-34.8); MEAN CORPUSCULAR HGB CONC 33.6 g/dL (32.4-35.8); MEAN CORPUSCULAR VOLUME 88.5 fL (80-100); MEAN PLATELET VOLUME 6.3 fL (7.4-10.4); MONOCYTES # (AUTO) 0.18 x10^3/uL (0.2-0.8); MONOCYTES % (AUTO) 3 % (2-9); NEUTROPHILS # (AUTO) 4.86 x10^3/uL (1.8-6.8); NEUTROPHILS % (AUTO) 86 % (42-75); PLATELET COUNT 304 x10^3/uL (130-400); RED BLOOD COUNT 4.19 x10^6/uL (3.82-5.3); RED CELL DISTRIBUTION WIDTH 16.4 % (9.6-15.2)
[2018-01-03 15:32] LABS: ALANINE AMINOTRANSFERASE 17 U/L (12-78); ALBUMIN 3.4 g/dL (3.4-5.0); ANION GAP 9 mmol/L (5-15); CALCIUM 8.2 mg/dL (8.5-10.1); CHLORIDE 95 mmol/L (98-107)
[2018-01-03 15:35] LABS: ALKALINE PHOSPHATASE 92 U/L (45-117); BILIRUBIN,TOTAL 0.5 mg/dL (0.2-1.0); TOTAL PROTEIN 7.5 g/dL (6.4-8.2)
[2018-01-03] MEDS ORDERED: LINEZOLID PMX 600MG/300ML 300 ML IV ONE (16:30)
[2018-01-03] MEDS ORDERED: LABETALOL 5MG/ML, 20ML IVPush PRN (17:30)
[2018-01-03] MEDS ORDERED: VANCOMYCIN PER PHARMACY MC PRN (17:30)
[2018-01-03] MEDS ORDERED: ACETAMINOPHEN 325 MG TABLET PO PRN (17:30)
[2018-01-03] MEDS ORDERED: PHARMACY MAY ADJ FOR RENAL FX MC PRN (17:30)
[2018-01-03] MEDS ORDERED: DOCUSATE 100 MG CAPSULE PO PRN (17:30)
[2018-01-03] MEDS ORDERED: hydrALAzine 20 MG/ML, 1ML IVPush PRN (17:30)
[2018-01-03] MEDS ORDERED: POLYETHYLENE GLYCOL 17 GM PACKET PO PRN (17:30)
[2018-01-03] MEDS ORDERED: BISACODYL 10 MG SUPP PR PRN (17:30)
[2018-01-03 17:33] LABS: INTERNATIONAL NORMALIZED RATIO 0.96 (0.93-1.1)
[2018-01-03 18:11] LABS: HCT (SEDRATE) 37.1 % (34.6-47.8)
[2018-01-03] MEDS ORDERED: PHARMACOKINETIC CONSULTATION MC ONE (18:30)
[2018-01-03] MEDS ORDERED: PHARMACOKINETIC MONITORING MC PRN (18:30)
[2018-01-03] MEDS: SODIUM CHLORIDE 0.9% 1,000 ML IV SCH (18:37)
[2018-01-03] MEDS: HEPARIN 5,000 UNITS/ML, 1ML SQ SCH (18:38)
[2018-01-03 19:57] VITALS: BP 144/54
[2018-01-03] MEDS: PIPERACILLIN/TAZO/PMX 3.375GM 50 ML IV SCH (21:54)
[2018-01-03] MEDS: VANCOMYCIN 2,000 MG in SODIUM CHLORIDE 0.9% 500 ML IV SCH (22:28)
[2018-01-04 00:59] VITALS: BP 106/62
[2018-01-04] MEDS: HEPARIN 5,000 UNITS/ML, 1ML SQ SCH ×3 (01:47→18:18)
[2018-01-04 05:41] LABS: BASOPHILS % (AUTO) 0 % (0-1); EOSINOPHILS # (AUTO) 0.24 x10^3/uL (0-0.4); EOSINOPHILS % (AUTO) 6 % (1-7); LYMPHOCYTES # (AUTO) 0.28 x10^3/uL (1-3.4); LYMPHOCYTES % (AUTO) 7 % (22-44); MD NO; MEAN CORPUSCULAR HEMOGLOBIN 29.9 pg (27.0-34.8); MEAN CORPUSCULAR HGB CONC 33.6 g/dL (32.4-35.8); MEAN CORPUSCULAR VOLUME 88.9 fL (80-100); MEAN PLATELET VOLUME 6.3 fL (7.4-10.4); MONOCYTES # (AUTO) 0.24 x10^3/uL (0.2-0.8); MONOCYTES % (AUTO) 6 % (2-9); NEUTROPHILS # (AUTO) 3.61 x10^3/uL (1.8-6.8); NEUTROPHILS % (AUTO) 82 % (42-75); PLATELET COUNT 255 x10^3/uL (130-400); RED BLOOD COUNT 3.73 x10^6/uL (3.82-5.3); RED CELL DISTRIBUTION WIDTH 16.6 % (9.6-15.2)
[2018-01-04 05:50] LABS: ALBUMIN 2.6 g/dL (3.4-5.0); ANION GAP 8 mmol/L (5-15); CALCIUM 7.6 mg/dL (8.5-10.1); CHLORIDE 97 mmol/L (98-107)
[2018-01-04] MEDS: LEVOTHYROXINE 150 MCG TABLET PO SCH (05:50)
[2018-01-04] MEDS: PIPERACILLIN/TAZO/PMX 3.375GM 50 ML IV SCH ×3 (05:50→23:18)
[2018-01-04 05:54] LABS: ALANINE AMINOTRANSFERASE 14 U/L (12-78); ALKALINE PHOSPHATASE 72 U/L (45-117); BILIRUBIN,TOTAL 0.4 mg/dL (0.2-1.0); CREATININE 1.01 mg/dL (0.55-1.02)
[2018-01-04] MEDS ORDERED: POTASSIUM CHLORIDE 20 MEQ TAB.ER.PRT PO ONE (06:30)
[2018-01-04 08:30] VITALS: BP 120/76
[2018-01-04] MEDS: DULOXETINE 30 MG CAPSULE.DR PO SCH (09:30)
[2018-01-04] MEDS: FLUOXETINE 10 MG CAP PO SCH (09:30)
[2018-01-04] MEDS: OMEPRAZOLE 20 MG CAPSULE.DR PO SCH (09:30)
[2018-01-04] MEDS: SODIUM CHLORIDE 0.9% 1,000 ML IV SCH (13:15)
[2018-01-04 14:35] VITALS: BP 132/71
[2018-01-04 14:52] VITALS: BP 94/61
[2018-01-04] MEDS: GABAPENTIN 400 MG CAPSULE PO SCH ×2 (18:18→20:51)
[2018-01-04] MEDS: VANCOMYCIN 2,000 MG in SODIUM CHLORIDE 0.9% 500 ML IV SCH (20:51)
[2018-01-04 21:00] VITALS: BP 112/59
[2018-01-05] MEDS: HEPARIN 5,000 UNITS/ML, 1ML SQ SCH ×3 (02:00→17:06)
[2018-01-05 02:30] VITALS: BP 125/76
[2018-01-05] MEDS: LEVOTHYROXINE 150 MCG TABLET PO SCH (05:16)
[2018-01-05 05:30] LABS: BASOPHILS # (AUTO) 0.01 x10^3/uL (0-0.1); BASOPHILS % (AUTO) 0 % (0-1); EOSINOPHILS # (AUTO) 0.24 x10^3/uL (0-0.4); EOSINOPHILS % (AUTO) 7 % (1-7); LYMPHOCYTES # (AUTO) 0.51 x10^3/uL (1-3.4); LYMPHOCYTES % (AUTO) 15 % (22-44); MD NO; MEAN CORPUSCULAR HEMOGLOBIN 30.3 pg (27.0-34.8); MEAN CORPUSCULAR HGB CONC 33.9 g/dL (32.4-35.8); MEAN CORPUSCULAR VOLUME 89.3 fL (80-100); MEAN PLATELET VOLUME 6.2 fL (7.4-10.4); MONOCYTES # (AUTO) 0.26 x10^3/uL (0.2-0.8); MONOCYTES % (AUTO) 8 % (2-9); NEUTROPHILS # (AUTO) 2.39 x10^3/uL (1.8-6.8); NEUTROPHILS % (AUTO) 70 % (42-75); PLATELET COUNT 258 x10^3/uL (130-400); RED BLOOD COUNT 3.57 x10^6/uL (3.82-5.3); RED CELL DISTRIBUTION WIDTH 16.9 % (9.6-15.2)
[2018-01-05 05:35] LABS: CHLORIDE 98 mmol/L (98-107)
[2018-01-05 05:50] LABS: ALBUMIN 2.5 g/dL (3.4-5.0); ANION GAP 4 mmol/L (5-15); CALCIUM 7.9 mg/dL (8.5-10.1); CREATININE 0.99 mg/dL (0.55-1.02)
[2018-01-05 08:00] VITALS: BP 126/71
[2018-01-05] MEDS: DULOXETINE 30 MG CAPSULE.DR PO SCH (08:25)
[2018-01-05] MEDS: OMEPRAZOLE 20 MG CAPSULE.DR PO SCH (08:25)
[2018-01-05] MEDS: PIPERACILLIN/TAZO/PMX 3.375GM 50 ML IV SCH ×2 (08:25→17:06)
[2018-01-05] MEDS: GABAPENTIN 400 MG CAPSULE PO SCH ×3 (08:26→21:05)
[2018-01-05] MEDS: FLUOXETINE 10 MG CAP PO SCH (08:26)
[2018-01-05 13:40] VITALS: BP 108/66
[2018-01-05 19:13] VITALS: BP 130/70
[2018-01-05] MEDS: VANCOMYCIN 2,000 MG in SODIUM CHLORIDE 0.9% 500 ML IV SCH (21:06)
[2018-01-06] MEDS: HEPARIN 5,000 UNITS/ML, 1ML SQ SCH ×3 (00:47→20:03)
[2018-01-06] MEDS: PIPERACILLIN/TAZO/PMX 3.375GM 50 ML IV SCH ×2 (00:47→11:16)
[2018-01-06 01:53] VITALS: BP 126/73
[2018-01-06 06:17] LABS: BASOPHILS # (AUTO) 0.01 x10^3/uL (0-0.1); BASOPHILS % (AUTO) 0 % (0-1); EOSINOPHILS # (AUTO) 0.23 x10^3/uL (0-0.4); EOSINOPHILS % (AUTO) 4 % (1-7); LYMPHOCYTES # (AUTO) 0.81 x10^3/uL (1-3.4); LYMPHOCYTES % (AUTO) 15 % (22-44); MD NO; MEAN CORPUSCULAR HEMOGLOBIN 30.3 pg (27.0-34.8); MEAN CORPUSCULAR HGB CONC 34.3 g/dL (32.4-35.8); MEAN CORPUSCULAR VOLUME 88.2 fL (80-100); MEAN PLATELET VOLUME 6.1 fL (7.4-10.4); MONOCYTES # (AUTO) 0.35 x10^3/uL (0.2-0.8); MONOCYTES % (AUTO) 7 % (2-9); NEUTROPHILS # (AUTO) 3.89 x10^3/uL (1.8-6.8); NEUTROPHILS % (AUTO) 74 % (42-75); PLATELET COUNT 255 x10^3/uL (130-400); RED BLOOD COUNT 3.75 x10^6/uL (3.82-5.3); RED CELL DISTRIBUTION WIDTH 16.9 % (9.6-15.2)
[2018-01-06] MEDS: LEVOTHYROXINE 175 MCG TABLET PO SCH (06:23)
[2018-01-06 06:30] LABS: ALBUMIN 2.6 g/dL (3.4-5.0); ANION GAP 9 mmol/L (5-15); CHLORIDE 99 mmol/L (98-107); CREATININE 1.07 mg/dL (0.55-1.02)
[2018-01-06] MEDS ORDERED: SODIUM CHLORIDE 0.9%, 250ML IVBOLUS ONE (07:00)
[2018-01-06] MEDS: DULOXETINE 30 MG CAPSULE.DR PO SCH (08:19)
[2018-01-06] MEDS: GABAPENTIN 400 MG CAPSULE PO SCH ×3 (08:20→20:04)
[2018-01-06] MEDS: FLUOXETINE 10 MG CAP PO SCH (08:21)
[2018-01-06] MEDS: OMEPRAZOLE 20 MG CAPSULE.DR PO SCH (08:22)
[2018-01-06 09:03] VITALS: BP 104/64
[2018-01-06 14:45] VITALS: BP 137/78
[2018-01-06] MEDS: CEFTRIAXONE PMX 1GM/50ML 50 ML IV SCH (17:48)
[2018-01-06] MEDS: DOXYCYCLINE 100 MG in DEXTROSE 5% 250 ML IV SCH (17:50)
[2018-01-06 19:28] VITALS: BP 142/78
[2018-01-07 02:56] VITALS: BP 133/72
[2018-01-07] MEDS: HEPARIN 5,000 UNITS/ML, 1ML SQ SCH ×3 (04:16→19:24)
[2018-01-07] MEDS: DOXYCYCLINE 100 MG in DEXTROSE 5% 250 ML IV SCH ×2 (04:16→16:34)
[2018-01-07] MEDS: LEVOTHYROXINE 175 MCG TABLET PO SCH (05:27)
[2018-01-07 05:54] LABS: BASOPHILS # (AUTO) 0.02 x10^3/uL (0-0.1); BASOPHILS % (AUTO) 0 % (0-1); EOSINOPHILS # (AUTO) 0.23 x10^3/uL (0-0.4); EOSINOPHILS % (AUTO) 4 % (1-7); LYMPHOCYTES # (AUTO) 0.76 x10^3/uL (1-3.4); LYMPHOCYTES % (AUTO) 14 % (22-44); MD NO; MEAN CORPUSCULAR HEMOGLOBIN 29.2 pg (27.0-34.8); MEAN CORPUSCULAR HGB CONC 32.9 g/dL (32.4-35.8); MEAN CORPUSCULAR VOLUME 88.8 fL (80-100); MEAN PLATELET VOLUME 6.1 fL (7.4-10.4); MONOCYTES # (AUTO) 0.36 x10^3/uL (0.2-0.8); MONOCYTES % (AUTO) 6 % (2-9); NEUTROPHILS # (AUTO) 4.28 x10^3/uL (1.8-6.8); NEUTROPHILS % (AUTO) 76 % (42-75); PLATELET COUNT 264 x10^3/uL (130-400); RED BLOOD COUNT 3.77 x10^6/uL (3.82-5.3); RED CELL DISTRIBUTION WIDTH 16.3 % (9.6-15.2)
[2018-01-07 06:08] LABS: ALBUMIN 2.8 g/dL (3.4-5.0); ANION GAP 7 mmol/L (5-15); CALCIUM 8.3 mg/dL (8.5-10.1); CHLORIDE 95 mmol/L (98-107)
[2018-01-07 06:13] LABS: ALANINE AMINOTRANSFERASE 14 U/L (12-78); ALKALINE PHOSPHATASE 64 U/L (45-117); BILIRUBIN,TOTAL 0.4 mg/dL (0.2-1.0); CREATININE 0.72 mg/dL (0.55-1.02); TOTAL PROTEIN 6.1 g/dL (6.4-8.2)
[2018-01-07 08:50] VITALS: BP 145/77
[2018-01-07] MEDS: DULOXETINE 30 MG CAPSULE.DR PO SCH (08:52)
[2018-01-07] MEDS: GABAPENTIN 400 MG CAPSULE PO SCH ×3 (08:53→19:31)
[2018-01-07] MEDS: OMEPRAZOLE 20 MG CAPSULE.DR PO SCH (08:53)
[2018-01-07] MEDS: FLUOXETINE 10 MG CAP PO SCH (08:54)
[2018-01-07 13:36] VITALS: BP 131/83
[2018-01-07] MEDS: CEFTRIAXONE PMX 1GM/50ML 50 ML IV SCH (16:34)
[2018-01-07 18:54] VITALS: BP 128/57
[2018-01-08 02:00] VITALS: BP 107/69
[2018-01-08] MEDS: HEPARIN 5,000 UNITS/ML, 1ML SQ SCH ×3 (04:00→20:27)
[2018-01-08] MEDS: DOXYCYCLINE 100 MG in DEXTROSE 5% 250 ML IV SCH ×2 (04:19→18:01)
[2018-01-08] MEDS: LEVOTHYROXINE 175 MCG TABLET PO SCH (05:11)
[2018-01-08 06:35] VITALS: BP 151/87
[2018-01-08] MEDS: DULOXETINE 30 MG CAPSULE.DR PO SCH (10:43)
[2018-01-08] MEDS: FLUOXETINE 10 MG CAP PO SCH (10:43)
[2018-01-08] MEDS: GABAPENTIN 400 MG CAPSULE PO SCH ×3 (10:43→20:27)
[2018-01-08] MEDS: OMEPRAZOLE 20 MG CAPSULE.DR PO SCH (10:43)
[2018-01-08 14:14] VITALS: BP 116/69
[2018-01-08] MEDS: CEFTRIAXONE PMX 1GM/50ML 50 ML IV SCH (17:06)
[2018-01-08 19:59] VITALS: BP 114/71
[2018-01-09 01:44] VITALS: BP 112/69
[2018-01-09] MEDS: HEPARIN 5,000 UNITS/ML, 1ML SQ SCH ×3 (03:57→20:35)
[2018-01-09] MEDS: DOXYCYCLINE 100 MG in DEXTROSE 5% 250 ML IV SCH (03:57)
[2018-01-09] MEDS: LEVOTHYROXINE 175 MCG TABLET PO SCH (05:06)
[2018-01-09 06:37] VITALS: BP 98/59
[2018-01-09] MEDS: OMEPRAZOLE 20 MG CAPSULE.DR PO SCH (07:28)
[2018-01-09] MEDS ORDERED: SULFAMETH./TRIMETHOPRIM DS 800MG/160MG TABLET PO SCH (09:00)
[2018-01-09] MEDS: GABAPENTIN 400 MG CAPSULE PO SCH ×3 (09:24→20:36)
[2018-01-09] MEDS: DULOXETINE 30 MG CAPSULE.DR PO SCH (09:24)
[2018-01-09] MEDS: FLUOXETINE 10 MG CAP PO SCH (09:24)
[2018-01-09] MEDS ORDERED: CEFTAROLINE 600 MG in SODIUM CHLORIDE 0.9% 100 ML IV ONE (12:00)
[2018-01-09 12:22] VITALS: BP 111/68
[2018-01-09 18:30] VITALS: BP 117/71
[2018-01-10 01:37] VITALS: BP 103/62
[2018-01-10] MEDS: HEPARIN 5,000 UNITS/ML, 1ML SQ SCH ×3 (05:09→21:38)
[2018-01-10] MEDS: LEVOTHYROXINE 175 MCG TABLET PO SCH (05:10)
[2018-01-10 06:36] VITALS: BP 113/70
[2018-01-10] MEDS: FLUOXETINE 10 MG CAP PO SCH (09:38)
[2018-01-10] MEDS: DULOXETINE 30 MG CAPSULE.DR PO SCH (09:38)
[2018-01-10] MEDS: GABAPENTIN 400 MG CAPSULE PO SCH ×3 (09:38→21:38)
[2018-01-10] MEDS: OMEPRAZOLE 20 MG CAPSULE.DR PO SCH (09:38)
[2018-01-10 12:02] VITALS: BP 109/75
[2018-01-10] MEDS: CEFTAROLINE 600 MG in SODIUM CHLORIDE 0.9% 100 ML IV SCH (13:03)
[2018-01-10 18:40] VITALS: BP 120/73
[2018-01-11] MEDS: CEFTAROLINE 600 MG in SODIUM CHLORIDE 0.9% 100 ML IV SCH ×2 (01:10→13:17)
[2018-01-11 01:37] VITALS: BP 112/61
[2018-01-11] MEDS: HEPARIN 5,000 UNITS/ML, 1ML SQ SCH ×3 (05:22→19:54)
[2018-01-11] MEDS: LEVOTHYROXINE 175 MCG TABLET PO SCH (05:23)
[2018-01-11 06:33] VITALS: BP 109/68
[2018-01-11] MEDS: DULOXETINE 30 MG CAPSULE.DR PO SCH (08:33)
[2018-01-11] MEDS: OMEPRAZOLE 20 MG CAPSULE.DR PO SCH (08:33)
[2018-01-11] MEDS: GABAPENTIN 400 MG CAPSULE PO SCH ×3 (08:34→19:54)
[2018-01-11] MEDS: FLUOXETINE 10 MG CAP PO SCH (08:34)
[2018-01-11] MEDS: FUROSEMIDE 20 MG TABLET PO SCH ×2 (08:34→08:37)
[2018-01-11 12:22] VITALS: BP 116/74
[2018-01-11 19:20] VITALS: BP 106/64
[2018-01-12] MEDS: CEFTAROLINE 600 MG in SODIUM CHLORIDE 0.9% 100 ML IV SCH ×2 (00:36→13:00)
[2018-01-12 02:05] VITALS: BP 109/62
[2018-01-12] MEDS: HEPARIN 5,000 UNITS/ML, 1ML SQ SCH ×3 (05:09→21:40)
[2018-01-12] MEDS: LEVOTHYROXINE 175 MCG TABLET PO SCH (05:09)
[2018-01-12 07:57] VITALS: BP 117/72
[2018-01-12] MEDS: OMEPRAZOLE 20 MG CAPSULE.DR PO SCH (10:33)
[2018-01-12] MEDS: DULOXETINE 30 MG CAPSULE.DR PO SCH (10:33)
[2018-01-12] MEDS: FUROSEMIDE 20 MG TABLET PO SCH (10:34)
[2018-01-12] MEDS: GABAPENTIN 400 MG CAPSULE PO SCH ×3 (10:34→21:40)
[2018-01-12] MEDS: FLUOXETINE 10 MG CAP PO SCH (10:34)
[2018-01-12 12:49] VITALS: BP 117/67
[2018-01-12] MEDS: CEFTRIAXONE PMX 2GM/50ML 50 ML IV SCH (14:43)
[2018-01-12] MEDS ORDERED: CEFD300C37 PO (14:53)
[2018-01-12] MEDS ORDERED: LINE600T33 PO (14:53)
[2018-01-12] MEDS ORDERED: POTA20TA6 PO (14:53)
[2018-01-12] MEDS ORDERED: FURO20TA3 PO (14:53)
[2018-01-12] MEDS ORDERED: LEVO175T2 PO (14:53)
[2018-01-12 18:59] VITALS: BP 125/73
[2018-01-12] MEDS: LINEZOLID 600 MG TABLET PO SCH (21:40)
[2018-01-13 03:20] VITALS: BP 126/67
[2018-01-13] MEDS: HEPARIN 5,000 UNITS/ML, 1ML SQ SCH ×3 (04:37→20:30)
[2018-01-13] MEDS: LEVOTHYROXINE 175 MCG TABLET PO SCH (05:41)
[2018-01-13 07:57] VITALS: BP 124/61
[2018-01-13] MEDS: GABAPENTIN 400 MG CAPSULE PO SCH ×3 (10:13→20:31)
[2018-01-13] MEDS: FUROSEMIDE 20 MG TABLET PO SCH (10:14)
[2018-01-13] MEDS: FLUOXETINE 10 MG CAP PO SCH (10:14)
[2018-01-13] MEDS: OMEPRAZOLE 20 MG CAPSULE.DR PO SCH (10:14)
[2018-01-13] MEDS: LINEZOLID 600 MG TABLET PO SCH ×2 (10:14→20:30)
[2018-01-13 14:53] VITALS: BP 115/56
[2018-01-13] MEDS: CEFTRIAXONE PMX 2GM/50ML 50 ML IV SCH (16:04)
[2018-01-13 19:06] VITALS: BP 108/58
[2018-01-13] MEDS ORDERED: DOXYCYCLINE 100MG TABLET PO ONE (20:00)
[2018-01-14 01:12] VITALS: BP 105/62
[2018-01-14] MEDS: LEVOTHYROXINE 175 MCG TABLET PO SCH (05:40)
[2018-01-14] MEDS: HEPARIN 5,000 UNITS/ML, 1ML SQ SCH ×3 (05:40→21:06)
[2018-01-14 07:55] VITALS: BP 117/73
[2018-01-14] MEDS: OMEPRAZOLE 20 MG CAPSULE.DR PO SCH (08:33)
[2018-01-14] MEDS: FUROSEMIDE 20 MG TABLET PO SCH (08:33)
[2018-01-14] MEDS: GABAPENTIN 400 MG CAPSULE PO SCH ×3 (08:33→21:05)
[2018-01-14] MEDS: FLUOXETINE 10 MG CAP PO SCH (08:33)
[2018-01-14] MEDS: LINEZOLID 600 MG TABLET PO SCH (08:33)
[2018-01-14] MEDS: MUPIROCIN OINT 2%, 22GM TP SCH ×2 (11:00→17:11)
[2018-01-14] MEDS: CEFTRIAXONE PMX 2GM/50ML 50 ML IV SCH (13:59)
[2018-01-14 14:00] VITALS: BP 110/62
[2018-01-14 18:30] VITALS: BP 100/67
[2018-01-14] MEDS: DOXYCYCLINE 100MG TABLET PO SCH (21:05)
[2018-01-15 00:13] VITALS: BP 122/76
[2018-01-15 05:30] LABS: BASOPHILS # (AUTO) 0.02 x10^3/uL (0-0.1); BASOPHILS % (AUTO) 0 % (0-1); EOSINOPHILS # (AUTO) 0.08 x10^3/uL (0-0.4); EOSINOPHILS % (AUTO) 2 % (1-7); LYMPHOCYTES # (AUTO) 0.67 x10^3/uL (1-3.4); LYMPHOCYTES % (AUTO) 13 % (22-44); MD NO; MEAN CORPUSCULAR HEMOGLOBIN 30.3 pg (27.0-34.8); MEAN CORPUSCULAR HGB CONC 33.8 g/dL (32.4-35.8); MEAN CORPUSCULAR VOLUME 89.7 fL (80-100); MEAN PLATELET VOLUME 6.1 fL (7.4-10.4); MONOCYTES # (AUTO) 0.48 x10^3/uL (0.2-0.8); MONOCYTES % (AUTO) 9 % (2-9); NEUTROPHILS # (AUTO) 4.03 x10^3/uL (1.8-6.8); NEUTROPHILS % (AUTO) 76 % (42-75); PLATELET COUNT 367 x10^3/uL (130-400); RED BLOOD COUNT 3.92 x10^6/uL (3.82-5.3); RED CELL DISTRIBUTION WIDTH 16.3 % (9.6-15.2)
[2018-01-15] MEDS: HEPARIN 5,000 UNITS/ML, 1ML SQ SCH ×3 (05:39→20:02)
[2018-01-15 05:40] LABS: CHLORIDE 94 mmol/L (98-107)
[2018-01-15] MEDS: LEVOTHYROXINE 175 MCG TABLET PO SCH (05:40)
[2018-01-15 05:49] LABS: ALANINE AMINOTRANSFERASE 13 U/L (12-78); ALBUMIN 2.8 g/dL (3.4-5.0); ALKALINE PHOSPHATASE 62 U/L (45-117); ANION GAP 4 mmol/L (5-15); BILIRUBIN,TOTAL 0.5 mg/dL (0.2-1.0); CALCIUM 8.6 mg/dL (8.5-10.1); CREATININE 0.93 mg/dL (0.55-1.02); TOTAL PROTEIN 6.5 g/dL (6.4-8.2)
[2018-01-15] MEDS: MUPIROCIN OINT 2%, 22GM TP SCH ×2 (06:57→16:22)
[2018-01-15 08:00] VITALS: BP 108/68
[2018-01-15] MEDS: FLUOXETINE 10 MG CAP PO SCH (08:08)
[2018-01-15] MEDS: OMEPRAZOLE 20 MG CAPSULE.DR PO SCH (08:08)
[2018-01-15] MEDS: GABAPENTIN 400 MG CAPSULE PO SCH ×3 (08:08→20:02)
[2018-01-15] MEDS: DOXYCYCLINE 100MG TABLET PO SCH ×2 (08:08→20:02)
[2018-01-15 13:21] VITALS: BP 106/69
[2018-01-15] MEDS: CEFTRIAXONE PMX 2GM/50ML 50 ML IV SCH (13:28)
[2018-01-15 18:40] VITALS: BP 117/70
[2018-01-16 02:01] VITALS: BP 117/68
[2018-01-16] MEDS: HEPARIN 5,000 UNITS/ML, 1ML SQ SCH ×3 (05:14→21:44)
[2018-01-16] MEDS: LEVOTHYROXINE 175 MCG TABLET PO SCH (05:14)
[2018-01-16 07:51] VITALS: BP 114/64
[2018-01-16] MEDS: GABAPENTIN 400 MG CAPSULE PO SCH ×3 (08:32→21:44)
[2018-01-16] MEDS: OMEPRAZOLE 20 MG CAPSULE.DR PO SCH (08:32)
[2018-01-16] MEDS: FLUOXETINE 10 MG CAP PO SCH (08:32)
[2018-01-16] MEDS: DOXYCYCLINE 100MG TABLET PO SCH ×2 (08:32→21:44)
[2018-01-16] MEDS: MUPIROCIN OINT 2%, 22GM TP SCH ×2 (08:32→15:43)
[2018-01-16] MEDS: CEFTRIAXONE PMX 2GM/50ML 50 ML IV SCH (13:00)
[2018-01-16 13:22] VITALS: BP 113/65
[2018-01-16 19:11] VITALS: BP 107/53
[2018-01-17 01:14] VITALS: BP 113/69
[2018-01-17 05:24] LABS: BASOPHILS # (AUTO) 0.05 x10^3/uL (0-0.1); BASOPHILS % (AUTO) 1 % (0-1); EOSINOPHILS # (AUTO) 0.06 x10^3/uL (0-0.4); EOSINOPHILS % (AUTO) 1 % (1-7); LYMPHOCYTES # (AUTO) 1.14 x10^3/uL (1-3.4); LYMPHOCYTES % (AUTO) 22 % (22-44); MD NO; MEAN CORPUSCULAR HGB CONC 33.4 g/dL (32.4-35.8); MEAN CORPUSCULAR VOLUME 89.9 fL (80-100); MEAN PLATELET VOLUME 6.7 fL (7.4-10.4); MONOCYTES # (AUTO) 0.43 x10^3/uL (0.2-0.8); MONOCYTES % (AUTO) 8 % (2-9); NEUTROPHILS # (AUTO) 3.57 x10^3/uL (1.8-6.8); NEUTROPHILS % (AUTO) 68 % (42-75); PLATELET COUNT 309 x10^3/uL (130-400); RED BLOOD COUNT 3.79 x10^6/uL (3.82-5.3); RED CELL DISTRIBUTION WIDTH 16.6 % (9.6-15.2)
[2018-01-17 05:34] LABS: CHLORIDE 98 mmol/L (98-107)
[2018-01-17 05:42] LABS: ALANINE AMINOTRANSFERASE 13 U/L (12-78); ALBUMIN 2.9 g/dL (3.4-5.0); ALKALINE PHOSPHATASE 67 U/L (45-117); ANION GAP 6 mmol/L (5-15); BILIRUBIN,TOTAL 0.3 mg/dL (0.2-1.0); C-REACTIVE PROTEIN, QUANT 0.38 mg/dL (0.02-0.49); CALCIUM 8.4 mg/dL (8.5-10.1); CREATININE 0.83 mg/dL (0.55-1.02); TOTAL PROTEIN 6.4 g/dL (6.4-8.2)
[2018-01-17] MEDS: HEPARIN 5,000 UNITS/ML, 1ML SQ SCH ×3 (06:07→21:35)
[2018-01-17] MEDS: LEVOTHYROXINE 175 MCG TABLET PO SCH (06:07)
[2018-01-17] MEDS: MUPIROCIN OINT 2%, 22GM TP SCH ×2 (06:07→17:22)
[2018-01-17 06:27] LABS: HCT (SEDRATE) 34.1 % (34.6-47.8)
[2018-01-17 08:02] VITALS: BP 122/67
[2018-01-17] MEDS: OMEPRAZOLE 20 MG CAPSULE.DR PO SCH (08:25)
[2018-01-17] MEDS: DOXYCYCLINE 100MG TABLET PO SCH ×2 (08:25→21:35)
[2018-01-17] MEDS: GABAPENTIN 400 MG CAPSULE PO SCH ×3 (08:25→21:35)
[2018-01-17] MEDS: FLUOXETINE 10 MG CAP PO SCH (08:25)
[2018-01-17] MEDS ORDERED: DOXY100T PO (10:25)
[2018-01-17 12:06] VITALS: BP 109/50
[2018-01-17] MEDS: CEFTRIAXONE PMX 2GM/50ML 50 ML IV SCH (14:50)
[2018-01-17 19:30] VITALS: BP 102/62
[2018-01-18 01:51] VITALS: BP 117/71
[2018-01-18] MEDS: HEPARIN 5,000 UNITS/ML, 1ML SQ SCH ×2 (06:07→13:13)
[2018-01-18] MEDS: LEVOTHYROXINE 175 MCG TABLET PO SCH (06:07)
[2018-01-18] MEDS: MUPIROCIN OINT 2%, 22GM TP SCH ×2 (06:08→16:34)
[2018-01-18 07:53] VITALS: BP 120/73
[2018-01-18] MEDS: FLUOXETINE 10 MG CAP PO SCH (08:24)
[2018-01-18] MEDS: DOXYCYCLINE 100MG TABLET PO SCH (08:24)
[2018-01-18] MEDS: GABAPENTIN 400 MG CAPSULE PO SCH ×2 (08:24→16:34)
[2018-01-18] MEDS: OMEPRAZOLE 20 MG CAPSULE.DR PO SCH (08:24)
[2018-01-18] MEDS: CEFTRIAXONE PMX 2GM/50ML 50 ML IV SCH (13:12)
[2018-01-18 14:19] VITALS: BP 122/78
== END 2018-01-18 17:51 | DRG 299 ==
LOC: ED 16:26 → EDIP 16:31 → ED 16:37 → 3NE 17:24
PROVIDERS: ADMIT Family Medicine; ATTEND Hospitalist
DX: I87.2 Venous insufficiency (chronic) (peripheral) (principal); J96.21 Acute and chronic respiratory failure with hypoxia; N17.9 Acute kidney failure, unspecified; E87.1 Hypo-osmolality and hyponatremia; L97.929 Non-pressure chronic ulcer of unspecified part of left lower leg with unspecified severity; L97.919 Non-pressure chronic ulcer of unspecified part of right lower leg with unspecified severity; J96.11 Chronic respiratory failure with hypoxia; B96.5 Pseudomonas (aeruginosa) (mallei) (pseudomallei) as the cause of diseases classified elsewhere; Z96.642 Presence of left artificial hip joint; Z96.619 Presence of unspecified artificial shoulder joint; K59.00 Constipation, unspecified; I35.0 Nonrheumatic aortic (valve) stenosis; G89.29 Other chronic pain; I10 Essential (primary) hypertension; J44.9 Chronic obstructive pulmonary disease, unspecified; M19.90 Unspecified osteoarthritis, unspecified site; G60.8 Other hereditary and idiopathic neuropathies; E66.01 Morbid (severe) obesity due to excess calories; E03.9 Hypothyroidism, unspecified; Z66 Do not resuscitate; Z22.322 Carrier or suspected carrier of Methicillin resistant Staphylococcus aureus; Z82.49 Family history of ischemic heart disease and other diseases of the circulatory system; Z86.14 Personal history of Methicillin resistant Staphylococcus aureus infection; Z90.710 Acquired absence of both cervix and uterus; Z87.891 Personal history of nicotine dependence; Z88.5 Allergy status to narcotic agent; Z88.8 Allergy status to other drugs, medicaments and biological substances; Z90.49 Acquired absence of other specified parts of digestive tract; Z91.048 Other nonmedicinal substance allergy status; Z99.3 Dependence on wheelchair; Z68.38 Body mass index [BMI] 38.0-38.9, adult
CPT/HCPCS: 36415; 80048; 80053; 80202; 82040; 83605; 84145; 84443; 85025; 85610; 85651; 86140; 87040; 87070; 87077; 87186; 87205; 93922; 96372; 99285; G0378; J0696; J0712; J1644; J2020; J2543; J3370; J7060; J7030; J7040; J7050

== ENCOUNTER → 2018-01-03 | Outpatient (CLI) | payer OTHER | END | disposition home or self-care (01) | LOC: WOUND 13:32 | PROVIDERS: ATTEND Internal Medicine | DX: I87.333 Chronic venous hypertension (idiopathic) with ulcer and inflammation of bilateral lower extremity (principal); L97.222 Non-pressure chronic ulcer of left calf with fat layer exposed; L97.212 Non-pressure chronic ulcer of right calf with fat layer exposed; I12.9 Hypertensive chronic kidney disease with stage 1 through stage 4 chronic kidney disease, or unspecified chronic kidney disease; N18.9 Chronic kidney disease, unspecified; G62.9 Polyneuropathy, unspecified; F32.9 Major depressive disorder, single episode, unspecified; G89.4 Chronic pain syndrome; I89.0 Lymphedema, not elsewhere classified; J43.9 Emphysema, unspecified; F11.20 Opioid dependence, uncomplicated; I73.9 Peripheral vascular disease, unspecified; E03.9 Hypothyroidism, unspecified; M16.11 Unilateral primary osteoarthritis, right hip; M19.90 Unspecified osteoarthritis, unspecified site; K21.9 Gastro-esophageal reflux disease without esophagitis; I25.10 Atherosclerotic heart disease of native coronary artery without angina pectoris; E66.9 Obesity, unspecified; Z68.37 Body mass index [BMI] 37.0-37.9, adult; Z79.4 Long term (current) use of insulin; Z87.891 Personal history of nicotine dependence; Z85.3 Personal history of malignant neoplasm of breast; Z90.710 Acquired absence of both cervix and uterus; Z90.49 Acquired absence of other specified parts of digestive tract | CPT/HCPCS: 99215 ==

== ENCOUNTER 2018-02-08 17:14 | Observation (INO) | payer OTHER ==
[~2018-02-08] VITALS: Ht 172.7 cm; Wt 111.8 kg
[~2018-02-08 17:14] MED LIST changes: +CEFD300C37 PO; +FURO20TA3 PO; +LEVO175T2 PO; +LINE600T33 PO; +POTA20TA6 PO
[2018-02-08] MEDS ORDERED: SODIUM CHLORIDE FLUSH 10ML SYR IVF ONE (17:30)
[2018-02-08 17:51] LABS: BASOPHILS # (AUTO) 0.02 x10^3/uL (0-0.1); BASOPHILS % (AUTO) 0 % (0-1); EOSINOPHILS # (AUTO) 0.18 x10^3/uL (0-0.4); EOSINOPHILS % (AUTO) 3 % (1-7); LYMPHOCYTES % (AUTO) 14 % (22-44); MD NO; MEAN CORPUSCULAR HEMOGLOBIN 30.1 pg (27.0-34.8); MEAN CORPUSCULAR HGB CONC 33.4 g/dL (32.4-35.8); MEAN CORPUSCULAR VOLUME 90.1 fL (80-100); MEAN PLATELET VOLUME 6.5 fL (7.4-10.4); MONOCYTES % (AUTO) 6 % (2-9); NEUTROPHILS # (AUTO) 5.56 x10^3/uL (1.8-6.8); NEUTROPHILS % (AUTO) 78 % (42-75); PLATELET COUNT 337 x10^3/uL (130-400); RED BLOOD COUNT 4.28 x10^6/uL (3.82-5.3); RED CELL DISTRIBUTION WIDTH 15.9 % (9.6-15.2)
[2018-02-08 18:00] LABS: INTERNATIONAL NORMALIZED RATIO 1.06 (0.93-1.1); PROTHROMBIN TIME 11.2 Seconds (9.6-11.5)
[2018-02-08 18:03] LABS: ALBUMIN 3.8 g/dL (3.4-5.0); ANION GAP 6 mmol/L (5-15); CALCIUM 8.7 mg/dL (8.5-10.1); CHLORIDE 99 mmol/L (98-107)
[2018-02-08 18:09] LABS: ALANINE AMINOTRANSFERASE 12 U/L (12-78); ALKALINE PHOSPHATASE 85 U/L (45-117); BILIRUBIN,TOTAL 0.7 mg/dL (0.2-1.0); TOTAL PROTEIN 7.9 g/dL (6.4-8.2)
[2018-02-08 18:37] LABS: CULTURE INDICATED? YES; MICROSCOPIC INDICATED
[2018-02-08] MEDS ORDERED: CEFTRIAXONE 1,000 MG in SODIUM CHLORIDE 0.9% 50 ML IVPB ONE (19:30)
[2018-02-08] MEDS ORDERED: CEFTRIAXONE PMX 1GM/50ML 50 ML ONE (19:38)
[2018-02-08] MEDS ORDERED: SODIUM CHLORIDE FLUSH 10ML SYR IVF PRN (20:00)
[2018-02-08 20:30] VITALS: BP 137/79
[2018-02-08] MEDS ORDERED: morphine SULFATE 10 MG/ML, 1ML IVPush PRN (21:30)
[2018-02-08] MEDS ORDERED: POLYETHYLENE GLYCOL 17 GM PACKET PO PRN (21:30)
[2018-02-08] MEDS ORDERED: PROMETHAZINE 25 MG/ML, 1ML IM PRN (21:30)
[2018-02-08] MEDS ORDERED: LABETALOL 5MG/ML, 20ML IVPush PRN (21:30)
[2018-02-08] MEDS ORDERED: DOCUSATE 100 MG CAPSULE PO PRN ×2 (21:30→22:00)
[2018-02-08] MEDS ORDERED: ONDANSETRON 2MG/ML, 2ML IVPush PRN (21:30)
[2018-02-08] MEDS ORDERED: CEFTRIAXONE PMX 1GM/50ML 50 ML IV ONE (21:30)
[2018-02-08] MEDS ORDERED: ACETAMINOPHEN 325 MG TABLET PO PRN (21:30)
[2018-02-08] MEDS ORDERED: ONDANSETRON ODT 4 MG PO PRN (21:30)
[2018-02-08] MEDS ORDERED: hydrALAzine 20 MG/ML, 1ML IVPush PRN (21:30)
[2018-02-08] MEDS ORDERED: HYDROcodone/APAP 5/325 TABLET PO PRN (21:30)
[2018-02-08] MEDS ORDERED: BISACODYL 10 MG SUPP PR PRN (21:30)
[2018-02-08] MEDS ORDERED: TEMPLATE NON-FORMULARY MED. (Doxycycline Hyclate** 100 MG) PO SCH (22:00)
[2018-02-08] MEDS ORDERED: PHARMACY INSTRUCTION MC PRN (22:00)
[2018-02-08 22:01] LABS: FREE T4 (FREE THYROXINE) 1.05 ng/dL (0.76-1.46); THYROID STIMULATING HORMONE 4.14 mIU/L (0.358-3.740)
[2018-02-08 22:07] LABS: HEMOGLOBIN A1C 5.5 % (4.2-6.3)
[2018-02-09] MEDS: ENOXAPARIN 40 MG/0.4 ML SQ SCH ×2 (00:19→19:56)
[2018-02-09] MEDS: GABAPENTIN 400 MG CAPSULE PO SCH ×4 (00:19→19:55)
[2018-02-09 01:51] VITALS: BP 103/58
[2018-02-09 04:58] LABS: BASOPHILS % (AUTO) 0 % (0-1); EOSINOPHILS # (AUTO) 0.19 x10^3/uL (0-0.4); EOSINOPHILS % (AUTO) 3 % (1-7); LYMPHOCYTES # (AUTO) 0.45 x10^3/uL (1-3.4); LYMPHOCYTES % (AUTO) 8 % (22-44); MD NO; MEAN CORPUSCULAR HEMOGLOBIN 30.3 pg (27.0-34.8); MEAN CORPUSCULAR HGB CONC 33.4 g/dL (32.4-35.8); MEAN CORPUSCULAR VOLUME 90.6 fL (80-100); MEAN PLATELET VOLUME 6.7 fL (7.4-10.4); MONOCYTES # (AUTO) 0.39 x10^3/uL (0.2-0.8); MONOCYTES % (AUTO) 7 % (2-9); NEUTROPHILS # (AUTO) 4.65 x10^3/uL (1.8-6.8); NEUTROPHILS % (AUTO) 82 % (42-75); PLATELET COUNT 258 x10^3/uL (130-400); RED BLOOD COUNT 3.75 x10^6/uL (3.82-5.3); RED CELL DISTRIBUTION WIDTH 15.6 % (9.6-15.2)
[2018-02-09 05:08] LABS: CHLORIDE 102 mmol/L (98-107)
[2018-02-09 05:13] LABS: ALANINE AMINOTRANSFERASE 9 U/L (12-78); ALKALINE PHOSPHATASE 65 U/L (45-117); ANION GAP 7 mmol/L (5-15); BILIRUBIN,TOTAL 0.5 mg/dL (0.2-1.0); CALCIUM 8.3 mg/dL (8.5-10.1); CHOL/HDL RATIO 4.9; CHOLESTEROL, TOTAL 128 mg/dL (140-239); CREATININE 0.77 mg/dL (0.55-1.02); HDL CHOL % 20 % (28-40); HDL CHOLESTEROL (DIRECT) 26 mg/dL (40-60); LDL CHOLESTEROL,CALCULATED 76 mg/dL (54-169); LDL/HDL RATIO 2.9 (0.5-3.0); TOTAL PROTEIN 6.2 g/dL (6.4-8.2); TRIGLYCERIDES 132 mg/dL (50-200); VLDL CHOLESTEROL 26 mg/dL (0-25)
[2018-02-09] MEDS: LEVOTHYROXINE 175 MCG TABLET PO SCH (05:52)
[2018-02-09 07:13] VITALS: BP 125/77
[2018-02-09] MEDS ORDERED: CALCIUM POLYCARBOPHIL 625 MG TABLET PO SCH (09:00)
[2018-02-09] MEDS ORDERED: FLUOXETINE 10 MG CAP PO SCH (09:00)
[2018-02-09] MEDS: DULOXETINE 30 MG CAPSULE.DR PO SCH (09:32)
[2018-02-09] MEDS: OMEPRAZOLE 20 MG CAPSULE.DR PO SCH (09:32)
[2018-02-09] MEDS: CALCIUM POLYCARBOPHIL 625 MG TABLET PO SCH ×2 (10:43→10:46)
[2018-02-09 13:20] VITALS: BP 118/77
[2018-02-09 19:10] VITALS: BP 113/56
[2018-02-09] MEDS: CEFTRIAXONE PMX 2GM/50ML 50 ML IV SCH (19:55)
[2018-02-10 01:51] VITALS: BP 147/74
[2018-02-10 05:44] LABS: BASOPHILS # (AUTO) 0.01 x10^3/uL (0-0.1); BASOPHILS % (AUTO) 0 % (0-1); EOSINOPHILS # (AUTO) 0.26 x10^3/uL (0-0.4); EOSINOPHILS % (AUTO) 5 % (1-7); LYMPHOCYTES # (AUTO) 0.39 x10^3/uL (1-3.4); LYMPHOCYTES % (AUTO) 8 % (22-44); MD NO; MEAN CORPUSCULAR HEMOGLOBIN 30.4 pg (27.0-34.8); MEAN CORPUSCULAR HGB CONC 33.4 g/dL (32.4-35.8); MEAN CORPUSCULAR VOLUME 91.2 fL (80-100); MONOCYTES # (AUTO) 0.38 x10^3/uL (0.2-0.8); MONOCYTES % (AUTO) 7 % (2-9); NEUTROPHILS # (AUTO) 4.21 x10^3/uL (1.8-6.8); NEUTROPHILS % (AUTO) 80 % (42-75); PLATELET COUNT 244 x10^3/uL (130-400); RED BLOOD COUNT 3.58 x10^6/uL (3.82-5.3)
[2018-02-10 05:50] LABS: CHLORIDE 101 mmol/L (98-107)
[2018-02-10] MEDS: LEVOTHYROXINE 175 MCG TABLET PO SCH (05:54)
[2018-02-10 06:03] LABS: ANION GAP 7 mmol/L (5-15); CALCIUM 8.3 mg/dL (8.5-10.1); CREATININE 0.77 mg/dL (0.55-1.02)
[2018-02-10 07:10] VITALS: BP 120/75
[2018-02-10] MEDS: OMEPRAZOLE 20 MG CAPSULE.DR PO SCH (08:06)
[2018-02-10] MEDS: CALCIUM POLYCARBOPHIL 625 MG TABLET PO SCH (08:06)
[2018-02-10] MEDS: GABAPENTIN 400 MG CAPSULE PO SCH ×3 (08:06→19:54)
[2018-02-10 12:44] VITALS: BP 115/66
[2018-02-10] MEDS: CEFTRIAXONE PMX 2GM/50ML 50 ML IV SCH (19:54)
[2018-02-10] MEDS: DULOXETINE 30 MG CAPSULE.DR PO SCH (19:54)
[2018-02-10] MEDS: ENOXAPARIN 40 MG/0.4 ML SQ SCH (19:54)
[2018-02-10 21:59] VITALS: BP 123/71
[2018-02-11 02:36] VITALS: BP 129/76
[2018-02-11] MEDS: LEVOTHYROXINE 175 MCG TABLET PO SCH (05:01)
[2018-02-11 05:25] LABS: BASOPHILS % (AUTO) 0 % (0-1); EOSINOPHILS # (AUTO) 0.21 x10^3/uL (0-0.4); EOSINOPHILS % (AUTO) 4 % (1-7); LYMPHOCYTES # (AUTO) 0.47 x10^3/uL (1-3.4); LYMPHOCYTES % (AUTO) 10 % (22-44); MD NO; MEAN CORPUSCULAR HEMOGLOBIN 30.2 pg (27.0-34.8); MEAN CORPUSCULAR HGB CONC 33.2 g/dL (32.4-35.8); MEAN CORPUSCULAR VOLUME 91.1 fL (80-100); MONOCYTES # (AUTO) 0.38 x10^3/uL (0.2-0.8); MONOCYTES % (AUTO) 8 % (2-9); NEUTROPHILS # (AUTO) 3.65 x10^3/uL (1.8-6.8); NEUTROPHILS % (AUTO) 78 % (42-75); PLATELET COUNT 246 x10^3/uL (130-400); RED BLOOD COUNT 3.68 x10^6/uL (3.82-5.3); RED CELL DISTRIBUTION WIDTH 15.6 % (9.6-15.2)
[2018-02-11 05:35] LABS: ANION GAP 6 mmol/L (5-15); CALCIUM 8.4 mg/dL (8.5-10.1); CHLORIDE 103 mmol/L (98-107); CREATININE 0.65 mg/dL (0.55-1.02)
[2018-02-11] MEDS: DULOXETINE 30 MG CAPSULE.DR PO SCH (07:19)
[2018-02-11 07:48] VITALS: BP 113/74
[2018-02-11] MEDS: CALCIUM POLYCARBOPHIL 625 MG TABLET PO SCH (09:58)
[2018-02-11] MEDS: OMEPRAZOLE 20 MG CAPSULE.DR PO SCH (09:58)
[2018-02-11] MEDS: GABAPENTIN 400 MG CAPSULE PO SCH ×3 (09:58→20:24)
[2018-02-11] MEDS ORDERED: ACET325T14 PO (11:28)
[2018-02-11] MEDS ORDERED: ENOX40SY4 SQ (11:28)
[2018-02-11] MEDS ORDERED: CEPH500T PO (11:30)
[2018-02-11 14:08] VITALS: BP 120/76
[2018-02-11] MEDS: CEFTRIAXONE PMX 2GM/50ML 50 ML IV SCH (18:29)
[2018-02-11 19:14] VITALS: BP 124/73
[2018-02-11] MEDS: ENOXAPARIN 40 MG/0.4 ML SQ SCH (20:24)
[2018-02-12 01:01] VITALS: BP 131/64
[2018-02-12] MEDS: LEVOTHYROXINE 175 MCG TABLET PO SCH (05:12)
[2018-02-12] MEDS: CALCIUM POLYCARBOPHIL 625 MG TABLET PO SCH (07:19)
[2018-02-12 07:46] VITALS: BP 130/80
[2018-02-12] MEDS: DULOXETINE 30 MG CAPSULE.DR PO SCH (09:38)
[2018-02-12] MEDS: OMEPRAZOLE 20 MG CAPSULE.DR PO SCH (09:38)
[2018-02-12] MEDS: GABAPENTIN 400 MG CAPSULE PO SCH ×3 (09:38→19:24)
[2018-02-12 14:23] VITALS: BP 133/79
[2018-02-12] MEDS: CEFTRIAXONE PMX 2GM/50ML 50 ML IV SCH (18:42)
[2018-02-12 19:05] VITALS: BP 136/75
[2018-02-12] MEDS: ENOXAPARIN 40 MG/0.4 ML SQ SCH (19:24)
[2018-02-13 00:44] VITALS: BP 136/48
[2018-02-13 04:47] LABS: BASOPHILS # (AUTO) 0.01 x10^3/uL (0-0.1); BASOPHILS % (AUTO) 0 % (0-1); EOSINOPHILS # (AUTO) 0.21 x10^3/uL (0-0.4); EOSINOPHILS % (AUTO) 5 % (1-7); LYMPHOCYTES # (AUTO) 0.77 x10^3/uL (1-3.4); LYMPHOCYTES % (AUTO) 17 % (22-44); MD NO; MEAN CORPUSCULAR HEMOGLOBIN 30.4 pg (27.0-34.8); MEAN CORPUSCULAR HGB CONC 33.4 g/dL (32.4-35.8); MEAN PLATELET VOLUME 6.4 fL (7.4-10.4); MONOCYTES # (AUTO) 0.36 x10^3/uL (0.2-0.8); MONOCYTES % (AUTO) 8 % (2-9); NEUTROPHILS # (AUTO) 3.27 x10^3/uL (1.8-6.8); NEUTROPHILS % (AUTO) 71 % (42-75); PLATELET COUNT 300 x10^3/uL (130-400); RED BLOOD COUNT 3.95 x10^6/uL (3.82-5.3); RED CELL DISTRIBUTION WIDTH 15.4 % (9.6-15.2)
[2018-02-13 04:51] LABS: ANION GAP 3 mmol/L (5-15); CALCIUM 8.6 mg/dL (8.5-10.1); CHLORIDE 102 mmol/L (98-107); CREATININE 0.75 mg/dL (0.55-1.02)
[2018-02-13] MEDS: LEVOTHYROXINE 175 MCG TABLET PO SCH (05:41)
[2018-02-13 08:34] VITALS: BP 153/72
[2018-02-13] MEDS: OMEPRAZOLE 20 MG CAPSULE.DR PO SCH (08:57)
[2018-02-13] MEDS: GABAPENTIN 400 MG CAPSULE PO SCH ×3 (08:57→20:16)
[2018-02-13] MEDS: CALCIUM POLYCARBOPHIL 625 MG TABLET PO SCH ×2 (08:58→09:00)
[2018-02-13] MEDS: DULOXETINE 30 MG CAPSULE.DR PO SCH (08:58)
[2018-02-13 15:40] VITALS: BP 144/78
[2018-02-13] MEDS: CEFTRIAXONE PMX 2GM/50ML 50 ML IV SCH (18:35)
[2018-02-13 18:39] VITALS: BP 132/76
[2018-02-13] MEDS: ENOXAPARIN 40 MG/0.4 ML SQ SCH (20:16)
[2018-02-14 00:02] VITALS: BP 116/72
[2018-02-14] MEDS: LEVOTHYROXINE 175 MCG TABLET PO SCH (05:18)
[2018-02-14 05:55] LABS: ANION GAP 4 mmol/L (5-15); CALCIUM 8.8 mg/dL (8.5-10.1); CHLORIDE 100 mmol/L (98-107)
[2018-02-14 07:13] VITALS: BP 123/71
[2018-02-14] MEDS: GABAPENTIN 400 MG CAPSULE PO SCH (08:38)
[2018-02-14] MEDS: DULOXETINE 30 MG CAPSULE.DR PO SCH (08:38)
[2018-02-14] MEDS: OMEPRAZOLE 20 MG CAPSULE.DR PO SCH (08:38)
[2018-02-14] MEDS: CALCIUM POLYCARBOPHIL 625 MG TABLET PO SCH (08:40)
[2018-02-14 12:41] VITALS: BP 124/78
== END 2018-02-15 07:49 | disposition home or self-care (01) ==
LOC: ED 19:33 → EDIP 19:40 → INTOOBSV 19:40 → 3NE 21:32
PROVIDERS: ADMIT Internal Medicine; ATTEND Internal Medicine
DX: N39.0 Urinary tract infection, site not specified (principal); R53.1 Weakness; L97.919 Non-pressure chronic ulcer of unspecified part of right lower leg with unspecified severity; L97.929 Non-pressure chronic ulcer of unspecified part of left lower leg with unspecified severity; I87.333 Chronic venous hypertension (idiopathic) with ulcer and inflammation of bilateral lower extremity; J44.9 Chronic obstructive pulmonary disease, unspecified; I35.0 Nonrheumatic aortic (valve) stenosis; I10 Essential (primary) hypertension; E03.9 Hypothyroidism, unspecified; L08.9 Local infection of the skin and subcutaneous tissue, unspecified; Z16.30 Resistance to unspecified antimicrobial drugs; Z99.81 Dependence on supplemental oxygen; Z96.642 Presence of left artificial hip joint; Z96.619 Presence of unspecified artificial shoulder joint; Z87.891 Personal history of nicotine dependence; Z90.710 Acquired absence of both cervix and uterus; E66.9 Obesity, unspecified; G89.29 Other chronic pain; J96.10 Chronic respiratory failure, unspecified whether with hypoxia or hypercapnia; Z96.89 Presence of other specified functional implants
CPT/HCPCS: 36415; 80048; 80053; 80061; 81001; 83036; 83605; 83735; 83880; 84439; 84443; 85025; 85610; 85730; 87040; 87077; 87086; 87186; 93970; 96365; 96366; 96372; 97110; 97162; 97167; 97530; 97535; 99284; G0378; G8978; G8979; G8980; J0696; J1650

== ENCOUNTER 2018-03-03 05:13 | Inpatient (IN) | payer MEDICARE, OTHER ==
[~2018-03-03] VITALS: Ht 172.7 cm; Wt 109.7 kg
[~2018-03-03 05:13] MED LIST changes: +ACET325T14 PO; +CEPH500T PO; +ENOX40SY4 SQ; -GABA800T2 PO; +GABA800T5 PO
[2018-03-03] MEDS ORDERED: OXYcodone/APAP 10/325MG TABLET ONE (05:26)
[2018-03-03] MEDS ORDERED: OXYcodone/APAP 10/325MG TABLET PO ONE (05:30)
--- NOTE | 2018-03-03 05:42 | NUR ---
PT PRESENTS TO ED W/ C/O CHRONIC R HIP PAIN xMULTIPLE YEARS, WORSE LAST 2 MONTHS. STATES HER PCP WANTS HER TO HAVE SURGERY ON R HIP, BUT NEEDS SURGERY ON HEART FIRST "FOR WHATEVER REASON." STATES ADL'S HAVE RECENTLY SUFFERED AND LIMITED MOBILITY. HAS BEEN IN REHAB FACILITIES AND IS CURRENTLY IN MORNING STAR. PT HAS A CUT THAT IS DRESSED ON L MARIA, OUR RECORDS INDICATE A POSITIVE MRSA CULTURE FROM LLE 2 MONTHS AGO. PT ALSO HAS A "CUT OF SOME KIND" ON R CALF THAT IS DRESSED FROM MORNING STAR. PT STATES INCREASED SWELLING TO BILAT LEx2 WEEKS. MONITORING APPLIED. VSS. CALL LIGHT WITHIN REACH.
--- NOTE | 2018-03-03 06:06 | NUR ---
AT BEDSIDE FOR ASSESSMENT.
--- NOTE | 2018-03-03 06:32 | NUR ---
PT TO GET SW AT 0900. NADN. NO IMMEDIATE NEEDS FROM PT. VSS. CALL LIGHT WITHIN REACH.
--- NOTE | 2018-03-03 07:00 | NUR ---
REC REPORT PT RESTING NADN WAITING ON SW PT AWARE OF WAITING ON SW
--- NOTE | 2018-03-03 07:01 | NUR ---
PT REPORT TO ANTONI GIRON.
--- NOTE | 2018-03-03 10:35 | NUR ---
pt resting aware sw pushed to 1100
--- NOTE | 2018-03-03 12:12 | NUR ---
BREAK RN: JOVANNY CALLED FOR ETA, STATES IT WILL BE AT LEAST 20 MINUTES BEFORE SHE IS ABLE TO COME ASSESS PT.
[2018-03-03] MEDS ORDERED: DOCUSATE 100 MG CAPSULE PO PRN (14:00)
[2018-03-03] MEDS ORDERED: hydrALAzine 20 MG/ML, 1ML IVPush PRN (14:00)
[2018-03-03] MEDS ORDERED: LABETALOL 5MG/ML, 20ML IVPush PRN (14:00)
[2018-03-03] MEDS ORDERED: BISACODYL 10 MG SUPP PR PRN (14:00)
[2018-03-03] MEDS ORDERED: POLYETHYLENE GLYCOL 17 GM PACKET PO PRN (14:00)
[2018-03-03] MEDS ORDERED: ACETAMINOPHEN 325 MG TABLET PO PRN (14:00)
[2018-03-03] MEDS ORDERED: HEPARIN 5,000 UNITS/ML, 1ML ONE (14:36)
[2018-03-03] MEDS: HEPARIN 5,000 UNITS/ML, 1ML SQ SCH ×2 (14:42→21:51)
--- NOTE | 2018-03-03 14:43 | NUR ---
REPORT CALLED TO [facility] TO BE HERE [facility] AWARE
[2018-03-03 15:13] LABS: INTERNATIONAL NORMALIZED RATIO 0.99 (0.93-1.1); PROTHROMBIN TIME 10.5 Seconds (9.6-11.5)
[2018-03-03 15:17] LABS: CHLORIDE 103 mmol/L (98-107)
[2018-03-03 15:31] LABS: ANION GAP 6 mmol/L (5-15); CREATININE 0.79 mg/dL (0.55-1.02)
[2018-03-03 15:54] LABS: MEAN CORPUSCULAR HEMOGLOBIN 29.5 pg (27.0-34.8); MEAN CORPUSCULAR VOLUME 89.4 fL (80-100); MEAN PLATELET VOLUME 6.9 fL (7.4-10.4); PLATELET COUNT 286 x10^3/uL (130-400); RED BLOOD COUNT 4.44 x10^6/uL (3.82-5.3); RED CELL DISTRIBUTION WIDTH 14.7 % (9.6-15.2)
[2018-03-03 15:55] LABS: BASOPHILS # (AUTO) 0.02 x10^3/uL (0-0.1); BASOPHILS % (AUTO) 0 % (0-1); EOSINOPHILS # (AUTO) 0.19 x10^3/uL (0-0.4); EOSINOPHILS % (AUTO) 4 % (1-7); LYMPHOCYTES # (AUTO) 0.87 x10^3/uL (1-3.4); LYMPHOCYTES % (AUTO) 17 % (22-44); MD SCAN; MONOCYTES # (AUTO) 0.34 x10^3/uL (0.2-0.8); MONOCYTES % (AUTO) 7 % (2-9); NEUTROPHILS # (AUTO) 3.57 x10^3/uL (1.8-6.8); NEUTROPHILS % (AUTO) 72 % (42-75)
[2018-03-03 16:48] VITALS: BP 141/77
[2018-03-03 17:05] LABS: ALBUMIN 3.6 g/dL (3.4-5.0); BILIRUBIN, DIRECT 0.1 mg/dL (0.1-0.2)
[2018-03-03 17:08] LABS: BILIRUBIN,INDIRECT 0.4 mg/dL (0.0-2.0); BILIRUBIN,TOTAL 0.5 mg/dL (0.2-1.0); FREE T4 (FREE THYROXINE) 1.05 ng/dL (0.76-1.46); TOTAL PROTEIN 7.5 g/dL (6.4-8.2)
[2018-03-03 21:07] VITALS: BP 121/49
[2018-03-04 02:39] LABS: MICROSCOPIC INDICATED
[2018-03-04 02:40] LABS: CULTURE INDICATED? YES
[2018-03-04 03:23] VITALS: BP 112/49
[2018-03-04 05:23] LABS: BASOPHILS # (AUTO) 0.01 x10^3/uL (0-0.1); BASOPHILS % (AUTO) 0 % (0-1); EOSINOPHILS # (AUTO) 0.19 x10^3/uL (0-0.4); EOSINOPHILS % (AUTO) 4 % (1-7); LYMPHOCYTES # (AUTO) 1.07 x10^3/uL (1-3.4); LYMPHOCYTES % (AUTO) 23 % (22-44); MD NO; MEAN CORPUSCULAR HGB CONC 32.7 g/dL (32.4-35.8); MEAN CORPUSCULAR VOLUME 88.9 fL (80-100); MEAN PLATELET VOLUME 7.1 fL (7.4-10.4); MONOCYTES # (AUTO) 0.48 x10^3/uL (0.2-0.8); MONOCYTES % (AUTO) 10 % (2-9); NEUTROPHILS # (AUTO) 2.96 x10^3/uL (1.8-6.8); NEUTROPHILS % (AUTO) 63 % (42-75); PLATELET COUNT 273 x10^3/uL (130-400); RED BLOOD COUNT 4.19 x10^6/uL (3.82-5.3); RED CELL DISTRIBUTION WIDTH 14.3 % (9.6-15.2)
[2018-03-04] MEDS: OMEPRAZOLE 20 MG CAPSULE.DR PO SCH (05:28)
[2018-03-04] MEDS: HEPARIN 5,000 UNITS/ML, 1ML SQ SCH ×3 (05:28→22:48)
[2018-03-04] MEDS: LEVOTHYROXINE 175 MCG TABLET PO SCH (05:28)
[2018-03-04 05:30] LABS: ANION GAP 6 mmol/L (5-15); CALCIUM 8.8 mg/dL (8.5-10.1); CHLORIDE 104 mmol/L (98-107); CREATININE 0.71 mg/dL (0.55-1.02)
[2018-03-04 07:01] VITALS: BP 114/59
[2018-03-04] MEDS: BACLOFEN 10 MG TABLET PO PRN (09:03)
[2018-03-04] MEDS: DULOXETINE 30 MG CAPSULE.DR PO SCH (09:03)
[2018-03-04] MEDS: GABAPENTIN 300 MG CAPSULE PO PRN ×2 (09:03→22:48)
[2018-03-04] MEDS: FLUOXETINE 10 MG CAP PO SCH (09:04)
[2018-03-04] MEDS: CALCIUM POLYCARBOPHIL 625 MG TABLET PO SCH (09:04)
[2018-03-04] MEDS: CEFTRIAXONE PMX 1GM/50ML 50 ML IV SCH (09:04)
[2018-03-04 12:08] VITALS: BP 124/64
[2018-03-04 19:21] VITALS: BP 115/58
[2018-03-05 01:29] VITALS: BP 121/58
[2018-03-05] MEDS: OMEPRAZOLE 20 MG CAPSULE.DR PO SCH (05:40)
[2018-03-05] MEDS: LEVOTHYROXINE 175 MCG TABLET PO SCH (05:41)
[2018-03-05 07:23] VITALS: BP 104/47
[2018-03-05] MEDS: CEFTRIAXONE PMX 1GM/50ML 50 ML IV SCH (09:18)
[2018-03-05] MEDS: DULOXETINE 30 MG CAPSULE.DR PO SCH (09:19)
[2018-03-05] MEDS: CALCIUM POLYCARBOPHIL 625 MG TABLET PO SCH (09:19)
[2018-03-05] MEDS: BACLOFEN 10 MG TABLET PO PRN (09:19)
[2018-03-05] MEDS: GABAPENTIN 300 MG CAPSULE PO PRN ×2 (09:19→22:27)
[2018-03-05] MEDS: FLUOXETINE 10 MG CAP PO SCH (09:19)
[2018-03-05] MEDS: HEPARIN 5,000 UNITS/ML, 1ML SQ SCH ×3 (09:19→22:28)
[2018-03-05 13:59] VITALS: BP 115/49
[2018-03-05 19:46] VITALS: BP 122/58
[2018-03-06 00:23] VITALS: BP 124/67
[2018-03-06 05:09] LABS: BASOPHILS # (AUTO) 0.02 x10^3/uL (0-0.1); BASOPHILS % (AUTO) 0 % (0-1); EOSINOPHILS # (AUTO) 0.19 x10^3/uL (0-0.4); EOSINOPHILS % (AUTO) 5 % (1-7); LYMPHOCYTES # (AUTO) 0.53 x10^3/uL (1-3.4); LYMPHOCYTES % (AUTO) 15 % (22-44); MD NO; MEAN CORPUSCULAR HEMOGLOBIN 29.7 pg (27.0-34.8); MEAN CORPUSCULAR HGB CONC 33.4 g/dL (32.4-35.8); MEAN CORPUSCULAR VOLUME 88.8 fL (80-100); MEAN PLATELET VOLUME 6.9 fL (7.4-10.4); MONOCYTES # (AUTO) 0.29 x10^3/uL (0.2-0.8); MONOCYTES % (AUTO) 8 % (2-9); NEUTROPHILS # (AUTO) 2.56 x10^3/uL (1.8-6.8); NEUTROPHILS % (AUTO) 71 % (42-75); PLATELET COUNT 255 x10^3/uL (130-400); RED BLOOD COUNT 4.02 x10^6/uL (3.82-5.3); RED CELL DISTRIBUTION WIDTH 14.2 % (9.6-15.2)
[2018-03-06 05:17] LABS: ALBUMIN 2.8 g/dL (3.4-5.0); ANION GAP 4 mmol/L (5-15); CALCIUM 8.5 mg/dL (8.5-10.1); CHLORIDE 105 mmol/L (98-107)
[2018-03-06 05:22] LABS: ALANINE AMINOTRANSFERASE 10 U/L (12-78); ALKALINE PHOSPHATASE 66 U/L (45-117); BILIRUBIN,TOTAL 0.3 mg/dL (0.2-1.0); CREATININE 0.74 mg/dL (0.55-1.02); TOTAL PROTEIN 6.3 g/dL (6.4-8.2)
[2018-03-06] MEDS: OMEPRAZOLE 20 MG CAPSULE.DR PO SCH (05:28)
[2018-03-06] MEDS: LEVOTHYROXINE 175 MCG TABLET PO SCH (05:29)
[2018-03-06 07:09] VITALS: BP 130/64
[2018-03-06] MEDS: CEFTRIAXONE PMX 1GM/50ML 50 ML IV SCH (09:21)
[2018-03-06] MEDS: FLUOXETINE 10 MG CAP PO SCH (09:32)
[2018-03-06] MEDS: DULOXETINE 30 MG CAPSULE.DR PO SCH (09:32)
[2018-03-06] MEDS: CALCIUM POLYCARBOPHIL 625 MG TABLET PO SCH (09:32)
[2018-03-06] MEDS: HEPARIN 5,000 UNITS/ML, 1ML SQ SCH ×2 (09:33→16:47)
[2018-03-06 12:39] VITALS: BP 145/61
[2018-03-06 18:50] VITALS: BP 123/65
[2018-03-06] MEDS: GABAPENTIN 300 MG CAPSULE PO PRN (20:50)
[2018-03-07] MEDS: HEPARIN 5,000 UNITS/ML, 1ML SQ SCH ×2 (01:00→08:19)
[2018-03-07 01:33] VITALS: BP 142/71
[2018-03-07] MEDS: LEVOTHYROXINE 175 MCG TABLET PO SCH (05:01)
[2018-03-07] MEDS: OMEPRAZOLE 20 MG CAPSULE.DR PO SCH (05:01)
[2018-03-07 05:12] LABS: BASOPHILS # (AUTO) 0.01 x10^3/uL (0-0.1); BASOPHILS % (AUTO) 0 % (0-1); EOSINOPHILS # (AUTO) 0.21 x10^3/uL (0-0.4); EOSINOPHILS % (AUTO) 5 % (1-7); LYMPHOCYTES # (AUTO) 0.82 x10^3/uL (1-3.4); LYMPHOCYTES % (AUTO) 21 % (22-44); MD NO; MEAN CORPUSCULAR HEMOGLOBIN 29.3 pg (27.0-34.8); MEAN CORPUSCULAR HGB CONC 32.9 g/dL (32.4-35.8); MEAN PLATELET VOLUME 6.7 fL (7.4-10.4); MONOCYTES % (AUTO) 10 % (2-9); NEUTROPHILS # (AUTO) 2.52 x10^3/uL (1.8-6.8); NEUTROPHILS % (AUTO) 64 % (42-75); PLATELET COUNT 243 x10^3/uL (130-400); RED BLOOD COUNT 4.01 x10^6/uL (3.82-5.3); RED CELL DISTRIBUTION WIDTH 13.7 % (9.6-15.2)
[2018-03-07 05:21] LABS: ANION GAP 3 mmol/L (5-15); CALCIUM 8.5 mg/dL (8.5-10.1); CHLORIDE 103 mmol/L (98-107); CREATININE 0.66 mg/dL (0.55-1.02)
[2018-03-07 07:44] VITALS: BP 147/71
[2018-03-07] MEDS: CEFTRIAXONE PMX 1GM/50ML 50 ML IV SCH (08:18)
[2018-03-07] MEDS: DULOXETINE 30 MG CAPSULE.DR PO SCH (08:18)
[2018-03-07] MEDS: FLUOXETINE 10 MG CAP PO SCH (08:18)
[2018-03-07] MEDS: CALCIUM POLYCARBOPHIL 625 MG TABLET PO SCH (08:18)
[2018-03-07 12:36] VITALS: BP 137/68
== END 2018-03-07 18:05 | DRG 690 ==
LOC: ED 06:35 → EDIP 13:22 → 3NE 16:45
PROVIDERS: ADMIT Hospitalist; ATTEND Hospitalist
DX: N39.0 Urinary tract infection, site not specified (principal); J96.10 Chronic respiratory failure, unspecified whether with hypoxia or hypercapnia; I35.0 Nonrheumatic aortic (valve) stenosis; J44.9 Chronic obstructive pulmonary disease, unspecified; E03.9 Hypothyroidism, unspecified; G89.29 Other chronic pain; I10 Essential (primary) hypertension; I87.8 Other specified disorders of veins; M16.0 Bilateral primary osteoarthritis of hip; R29.6 Repeated falls; B96.20 Unspecified Escherichia coli [E. coli] as the cause of diseases classified elsewhere; E66.9 Obesity, unspecified; G62.9 Polyneuropathy, unspecified; Z96.619 Presence of unspecified artificial shoulder joint; Z96.642 Presence of left artificial hip joint; Z66 Do not resuscitate; Z99.81 Dependence on supplemental oxygen; Z90.710 Acquired absence of both cervix and uterus; Z90.49 Acquired absence of other specified parts of digestive tract; Z88.5 Allergy status to narcotic agent; Z87.440 Personal history of urinary (tract) infections; Z87.891 Personal history of nicotine dependence; Z82.49 Family history of ischemic heart disease and other diseases of the circulatory system; Z68.36 Body mass index [BMI] 36.0-36.9, adult
CPT/HCPCS: 36415; 80048; 80053; 80076; 81001; 84145; 84439; 84443; 85025; 85610; 87077; 87086; 87186; 96372; G0378; J0696; J1644

== ENCOUNTER → 2018-04-25 | Outpatient (CLI) | payer MEDICARE | END | disposition home or self-care (01) | LOC: CVU 13:40 | PROVIDERS: ATTEND Internal Medicine Cardiovascular Disease | DX: I51.7 Cardiomegaly (principal); I35.0 Nonrheumatic aortic (valve) stenosis; J44.9 Chronic obstructive pulmonary disease, unspecified | CPT/HCPCS: 93306 ==

== ENCOUNTER → 2018-05-04 | Outpatient (CLI) | payer MEDICARE | END | disposition home or self-care (01) | LOC: WOUND 14:20 | PROVIDERS: ATTEND Internal Medicine | DX: I87.333 Chronic venous hypertension (idiopathic) with ulcer and inflammation of bilateral lower extremity (principal); L97.222 Non-pressure chronic ulcer of left calf with fat layer exposed; L97.212 Non-pressure chronic ulcer of right calf with fat layer exposed; F32.9 Major depressive disorder, single episode, unspecified; E03.9 Hypothyroidism, unspecified; K21.9 Gastro-esophageal reflux disease without esophagitis; Z87.891 Personal history of nicotine dependence; Z90.710 Acquired absence of both cervix and uterus | CPT/HCPCS: 97597; 97598; G0463 ==

== ENCOUNTER → 2018-05-11 | Outpatient (CLI) | payer MEDICARE | END | disposition home or self-care (01) | LOC: WOUND 14:00 | PROVIDERS: ATTEND Internal Medicine | DX: I87.312 Chronic venous hypertension (idiopathic) with ulcer of left lower extremity (principal); L97.222 Non-pressure chronic ulcer of left calf with fat layer exposed; I87.331 Chronic venous hypertension (idiopathic) with ulcer and inflammation of right lower extremity; L97.212 Non-pressure chronic ulcer of right calf with fat layer exposed; L89.43 Pressure ulcer of contiguous site of back, buttock and hip, stage 3; L98.411 Non-pressure chronic ulcer of buttock limited to breakdown of skin; G62.9 Polyneuropathy, unspecified; I42.9 Cardiomyopathy, unspecified; E03.9 Hypothyroidism, unspecified; M19.90 Unspecified osteoarthritis, unspecified site; J44.9 Chronic obstructive pulmonary disease, unspecified; K21.9 Gastro-esophageal reflux disease without esophagitis; F32.9 Major depressive disorder, single episode, unspecified; Z87.891 Personal history of nicotine dependence; Z90.710 Acquired absence of both cervix and uterus | CPT/HCPCS: 97597; 97598 ==

== ENCOUNTER → 2018-05-18 | Outpatient (CLI) | payer MEDICARE | END | disposition home or self-care (01) | LOC: WOUND 14:00 | PROVIDERS: ATTEND Internal Medicine | DX: I87.313 Chronic venous hypertension (idiopathic) with ulcer of bilateral lower extremity (principal); L97.222 Non-pressure chronic ulcer of left calf with fat layer exposed; L97.212 Non-pressure chronic ulcer of right calf with fat layer exposed; L89.43 Pressure ulcer of contiguous site of back, buttock and hip, stage 3; L98.411 Non-pressure chronic ulcer of buttock limited to breakdown of skin; G62.9 Polyneuropathy, unspecified; I42.9 Cardiomyopathy, unspecified; E03.9 Hypothyroidism, unspecified; M19.90 Unspecified osteoarthritis, unspecified site; J44.9 Chronic obstructive pulmonary disease, unspecified; K21.9 Gastro-esophageal reflux disease without esophagitis; F32.9 Major depressive disorder, single episode, unspecified; Z87.891 Personal history of nicotine dependence | CPT/HCPCS: 97597; 97598 ==

== ENCOUNTER → 2018-06-01 | Outpatient (CLI) | payer MEDICARE | END | disposition home or self-care (01) | LOC: WOUND 13:11 | PROVIDERS: ATTEND Internal Medicine | DX: I87.313 Chronic venous hypertension (idiopathic) with ulcer of bilateral lower extremity (principal); L97.222 Non-pressure chronic ulcer of left calf with fat layer exposed; L97.212 Non-pressure chronic ulcer of right calf with fat layer exposed; L89.43 Pressure ulcer of contiguous site of back, buttock and hip, stage 3; L98.411 Non-pressure chronic ulcer of buttock limited to breakdown of skin; G62.9 Polyneuropathy, unspecified; I42.9 Cardiomyopathy, unspecified; E03.9 Hypothyroidism, unspecified; M19.90 Unspecified osteoarthritis, unspecified site; J44.9 Chronic obstructive pulmonary disease, unspecified; K21.9 Gastro-esophageal reflux disease without esophagitis; F32.9 Major depressive disorder, single episode, unspecified; Z87.891 Personal history of nicotine dependence | CPT/HCPCS: 97597; 97598 ==

== ENCOUNTER → 2018-06-27 | Outpatient (CLI) | payer MEDICARE ==
[~2018-06-27] MED LIST changes: +ASPI81TA45 PO; +CLOP75TA PO; +LEVO150T5 PO
== END | disposition home or self-care (01) ==
LOC: WOUND 13:52
PROVIDERS: ATTEND Internal Medicine
DX: I87.312 Chronic venous hypertension (idiopathic) with ulcer of left lower extremity (principal); L97.222 Non-pressure chronic ulcer of left calf with fat layer exposed; I87.331 Chronic venous hypertension (idiopathic) with ulcer and inflammation of right lower extremity; L97.212 Non-pressure chronic ulcer of right calf with fat layer exposed; L89.43 Pressure ulcer of contiguous site of back, buttock and hip, stage 3; I11.0 Hypertensive heart disease with heart failure; I50.33 Acute on chronic diastolic (congestive) heart failure; G89.29 Other chronic pain; E03.9 Hypothyroidism, unspecified; G62.9 Polyneuropathy, unspecified; I42.9 Cardiomyopathy, unspecified; M19.90 Unspecified osteoarthritis, unspecified site; I89.0 Lymphedema, not elsewhere classified; J44.9 Chronic obstructive pulmonary disease, unspecified; M17.0 Bilateral primary osteoarthritis of knee; K21.9 Gastro-esophageal reflux disease without esophagitis; F32.9 Major depressive disorder, single episode, unspecified; E66.9 Obesity, unspecified; Z68.34 Body mass index [BMI] 34.0-34.9, adult; Z88.6 Allergy status to analgesic agent; Z90.710 Acquired absence of both cervix and uterus; Z87.891 Personal history of nicotine dependence
CPT/HCPCS: 97597; 97598

== ENCOUNTER → 2018-07-11 | Outpatient (CLI) | payer MEDICARE | END | disposition home or self-care (01) | LOC: WOUND 14:00 | PROVIDERS: ATTEND Internal Medicine | DX: I87.312 Chronic venous hypertension (idiopathic) with ulcer of left lower extremity (principal); L97.222 Non-pressure chronic ulcer of left calf with fat layer exposed; I87.331 Chronic venous hypertension (idiopathic) with ulcer and inflammation of right lower extremity; L97.212 Non-pressure chronic ulcer of right calf with fat layer exposed; L89.43 Pressure ulcer of contiguous site of back, buttock and hip, stage 3; I11.0 Hypertensive heart disease with heart failure; I50.33 Acute on chronic diastolic (congestive) heart failure; E03.9 Hypothyroidism, unspecified; G62.9 Polyneuropathy, unspecified; I42.9 Cardiomyopathy, unspecified; G89.29 Other chronic pain; E66.9 Obesity, unspecified; I89.0 Lymphedema, not elsewhere classified; M19.90 Unspecified osteoarthritis, unspecified site; J44.9 Chronic obstructive pulmonary disease, unspecified; K21.9 Gastro-esophageal reflux disease without esophagitis; F32.9 Major depressive disorder, single episode, unspecified; Z68.34 Body mass index [BMI] 34.0-34.9, adult; Z87.891 Personal history of nicotine dependence; Z88.6 Allergy status to analgesic agent; Z90.710 Acquired absence of both cervix and uterus | CPT/HCPCS: 97597 ==

== ENCOUNTER → 2018-08-10 | Outpatient (CLI) | payer MEDICARE | END | disposition home or self-care (01) | LOC: WOUND 13:14 | PROVIDERS: ATTEND Internal Medicine | DX: I87.312 Chronic venous hypertension (idiopathic) with ulcer of left lower extremity (principal); L97.222 Non-pressure chronic ulcer of left calf with fat layer exposed; I87.331 Chronic venous hypertension (idiopathic) with ulcer and inflammation of right lower extremity; L97.212 Non-pressure chronic ulcer of right calf with fat layer exposed; L89.43 Pressure ulcer of contiguous site of back, buttock and hip, stage 3; I11.0 Hypertensive heart disease with heart failure; I50.33 Acute on chronic diastolic (congestive) heart failure; G62.9 Polyneuropathy, unspecified; G89.29 Other chronic pain; I42.9 Cardiomyopathy, unspecified; E03.9 Hypothyroidism, unspecified; I89.0 Lymphedema, not elsewhere classified; M19.90 Unspecified osteoarthritis, unspecified site; J44.9 Chronic obstructive pulmonary disease, unspecified; K21.9 Gastro-esophageal reflux disease without esophagitis; F32.9 Major depressive disorder, single episode, unspecified; E66.9 Obesity, unspecified; Z68.34 Body mass index [BMI] 34.0-34.9, adult; Z88.6 Allergy status to analgesic agent; Z90.710 Acquired absence of both cervix and uterus; Z87.891 Personal history of nicotine dependence | CPT/HCPCS: 97597 ==

== ENCOUNTER → 2018-09-05 | Outpatient (CLI) | payer MEDICARE ==
[~2018-09-05] MED LIST changes: +DOXY100T9 PO; +ESOM20TA PO; +MORP-52 PO; +OXYC5TAB2 PO; +SENN-149 PO
== END | disposition home or self-care (01) ==
LOC: WOUND 11:12
PROVIDERS: ATTEND Internal Medicine
DX: I87.312 Chronic venous hypertension (idiopathic) with ulcer of left lower extremity (principal); L97.222 Non-pressure chronic ulcer of left calf with fat layer exposed; I87.331 Chronic venous hypertension (idiopathic) with ulcer and inflammation of right lower extremity; L97.212 Non-pressure chronic ulcer of right calf with fat layer exposed; L89.43 Pressure ulcer of contiguous site of back, buttock and hip, stage 3; I11.0 Hypertensive heart disease with heart failure; I50.33 Acute on chronic diastolic (congestive) heart failure; G62.9 Polyneuropathy, unspecified; G89.29 Other chronic pain; I42.9 Cardiomyopathy, unspecified; E03.9 Hypothyroidism, unspecified; I89.0 Lymphedema, not elsewhere classified; M19.90 Unspecified osteoarthritis, unspecified site; J44.9 Chronic obstructive pulmonary disease, unspecified; K21.9 Gastro-esophageal reflux disease without esophagitis; F32.9 Major depressive disorder, single episode, unspecified; E66.9 Obesity, unspecified; Z68.34 Body mass index [BMI] 34.0-34.9, adult; Z88.6 Allergy status to analgesic agent; Z90.710 Acquired absence of both cervix and uterus; Z87.891 Personal history of nicotine dependence
CPT/HCPCS: 97597

== ENCOUNTER 2018-09-08 17:33 | Inpatient (IN) | payer MEDICARE ==
[~2018-09-08] VITALS: Ht 172.7 cm; Wt 113.9 kg
[~2018-09-08 17:33] MED LIST changes: -DOXY100T9 PO; -ESOM20TA PO; -MORP-52 PO; -OXYC5TAB2 PO; -SENN-149 PO
--- NOTE | 2018-09-08 17:34 | NUR ---
PATIENT ARRIVES FROM HOME WITH BLE SWELLING THAT IS GREATER THAN USUAL. SHE AT HOME CAN STAND AND PIVOT TO TOILET WITH WALKER BUT RECENTLY CAN BARELY AMBLATE. SHE IS ON HOME OXYGEN 4 LITERS AROUND THE CLOCK. SHE HAS BLE EDEMA 3+ AND IT IS RED, SWOLLEN, BLANCHABLE REDDNESS. PATIENT IN BED, GOWNED, AND ON MONITOR.
--- NOTE | 2018-09-08 17:57 | NUR ---
ELEVATING BLE. PATIENT HAS PRESSURE ULCERS ON LEFT AND RIGHT BUTTOCKS, TWO ON RIGHT ONE ON LEFT.
[2018-09-08] MEDS ORDERED: PIPERACILLIN/TAZO/PMX 3.375GM 50 ML IVPB ONE (18:00)
[2018-09-08] MEDS ORDERED: SODIUM CHLORIDE FLUSH 10ML SYR IVF ONE (18:00)
[2018-09-08] MEDS ORDERED: VANCOMYCIN PER PHARMACY IV ONE (18:00)
--- NOTE | 2018-09-08 18:03 | NUR ---
PATIENT ABX ORDERED WILL START ONCE BLOOD CULTURES DRAWN
--- NOTE | 2018-09-08 18:26 | NUR ---
LAB IN ROOM DRAWING CULTURES
[2018-09-08] MEDS ORDERED: VANCOMYCIN 2,000 MG in SODIUM CHLORIDE 0.9% 500 ML IV ONE (18:30)
--- NOTE | 2018-09-08 18:44 | NUR ---
blood cultures drawn. patient abx started and ordered vanco from pharmacy
[2018-09-08 18:45] LABS: BASOPHILS # (AUTO) 0.01 x10^3/uL (0-0.1); BASOPHILS % (AUTO) 0 % (0-1); EOSINOPHILS # (AUTO) 0.24 x10^3/uL (0-0.4); EOSINOPHILS % (AUTO) 4 % (1-7); LYMPHOCYTES # (AUTO) 0.67 x10^3/uL (1-3.4); LYMPHOCYTES % (AUTO) 12 % (22-44); MD NO; MEAN CORPUSCULAR HEMOGLOBIN 27.8 pg (27.0-34.8); MEAN CORPUSCULAR HGB CONC 32.1 g/dL (32.4-35.8); MEAN CORPUSCULAR VOLUME 86.4 fL (80-100); MEAN PLATELET VOLUME 6.7 fL (7.4-10.4); MONOCYTES # (AUTO) 0.44 x10^3/uL (0.2-0.8); MONOCYTES % (AUTO) 8 % (2-9); NEUTROPHILS # (AUTO) 4.26 x10^3/uL (1.8-6.8); NEUTROPHILS % (AUTO) 76 % (42-75); PLATELET COUNT 311 x10^3/uL (130-400); RED BLOOD COUNT 4.37 x10^6/uL (3.82-5.3); RED CELL DISTRIBUTION WIDTH 16.3 % (9.6-15.2)
[2018-09-08 18:50] LABS: INTERNATIONAL NORMALIZED RATIO 1.03 (0.93-1.1); PROTHROMBIN TIME 10.8 Seconds (9.6-11.5)
[2018-09-08 18:52] LABS: ALANINE AMINOTRANSFERASE 10 U/L (12-78); ALBUMIN 3.1 g/dL (3.4-5.0); ANION GAP 6 mmol/L (5-15); CALCIUM 8.6 mg/dL (8.5-10.1); CHLORIDE 106 mmol/L (98-107)
[2018-09-08 18:55] LABS: ALKALINE PHOSPHATASE 92 U/L (45-117); BILIRUBIN,TOTAL 0.5 mg/dL (0.2-1.0); TOTAL PROTEIN 6.7 g/dL (6.4-8.2)
[2018-09-08] MEDS ORDERED: MAGNESIUM SULFATE PMX 2GM/50ML 50 ML IV ONE (19:00)
--- NOTE | 2018-09-08 19:12 | NUR ---
Assumed care, bedside report recieved, IV abx infusing, vitals stable, waiting for results. Pt is alert, speaks in full complete sentences, no apparent distress, denies pain, call light within reach.
[2018-09-08] MEDS ORDERED: morphine SULFATE 10 MG/ML, 1ML IVPush PRN (19:30)
[2018-09-08] MEDS ORDERED: ACETAMINOPHEN 325 MG TABLET PO PRN (19:30)
[2018-09-08 20:23] VITALS: BP 108/65
[2018-09-08] MEDS ORDERED: DOCUSATE 100 MG CAPSULE PO PRN (20:30)
[2018-09-08] MEDS ORDERED: VANCOMYCIN PER PHARMACY MC PRN (20:30)
[2018-09-08] MEDS ORDERED: PHARMACOKINETIC CONSULTATION MC ONE (21:00)
[2018-09-08] MEDS ORDERED: GABAPENTIN 100 MG CAPSULE PO ONE (21:00)
[2018-09-08] MEDS ORDERED: PHARMACOKINETIC MONITORING MC PRN (21:00)
[2018-09-08] MEDS ORDERED: ESOM20TA PO (22:56)
[2018-09-08] MEDS ORDERED: NAPR220C2 PO (22:56)
[2018-09-08] MEDS ORDERED: SENN-149 PO (22:56)
[2018-09-08] MEDS ORDERED: DOXY100T9 PO (22:56)
[2018-09-08] MEDS ORDERED: MORP-52 PO (22:56)
[2018-09-08] MEDS ORDERED: OXYC5TAB2 PO (22:56)
[2018-09-08] MEDS: ENOXAPARIN 40 MG/0.4 ML SQ SCH (22:57)
[2018-09-09] VITALS (9 sets, daily range): BP systolic 91–118; BP diastolic 56–69
[2018-09-09 04:32] LABS: MEAN CORPUSCULAR VOLUME 84.5 fL (80-100); MEAN PLATELET VOLUME 6.5 fL (7.4-10.4); PLATELET COUNT 249 x10^3/uL (130-400)
[2018-09-09 04:47] LABS: ANION GAP 7 mmol/L (5-15); CALCIUM 8.2 mg/dL (8.5-10.1); CHLORIDE 108 mmol/L (98-107)
[2018-09-09 04:58] LABS: CREATININE 0.82 mg/dL (0.55-1.02); THYROID STIMULATING HORMONE 0.728 mIU/L (0.358-3.740)
[2018-09-09 05:01] LABS: MD YES
[2018-09-09 05:04] LABS: ANISOCYTOSIS 1+; BAND#(MANUAL) 0.83 x10^3/uL; BANDS%(MANUAL) 13 % (0-7); LYMPH#(MANUAL) 0.06 x10^3/uL (1-3.4); LYMPHS% (MANUAL) 1 % (22-44); SEGS% (MANUAL) 86 % (42-75)
[2018-09-09 05:05] LABS: <PLATELET ESTIMATE> ADEQUATE; <PLT MORPHOLOGY> NORMAL PLT MORPH
[2018-09-09] MEDS: LEVOTHYROXINE 175 MCG TABLET PO SCH ×2 (05:56→06:00)
[2018-09-09] MEDS ORDERED: VANCOMYCIN 2,000 MG in SODIUM CHLORIDE 0.9% 500 ML IV SCH (08:30)
[2018-09-09] MEDS: ASPIRIN 81 MG TABLET EC PO SCH (09:00)
[2018-09-09] MEDS: CLOPIDOGREL 75 MG TABLET PO SCH (09:00)
[2018-09-09] MEDS: FLUOXETINE 10 MG CAP PO SCH (09:00)
[2018-09-09] MEDS: DULOXETINE 30 MG CAPSULE.DR PO SCH (09:00)
[2018-09-09] MEDS ORDERED: SODIUM CHLORIDE 0.9% 1,000 ML IV SCH (10:00)
[2018-09-09] MEDS: SODIUM CHLORIDE 0.9% 1,000 ML IV SCH ×2 (10:30→18:23)
[2018-09-09] MEDS ORDERED: IBUPROFEN 200 MG TABLET PO PRN (14:00)
[2018-09-09] MEDS: OXYcodone IR 5MG TABLET PO PRN (16:58)
[2018-09-09] MEDS: GABAPENTIN 100 MG CAPSULE PO SCH ×2 (16:58→21:28)
[2018-09-09] MEDS ORDERED: FLUT1BLS MT (20:36)
[2018-09-09] MEDS ORDERED: BIFI4CAP PO (20:36)
[2018-09-09] MEDS ORDERED: FLUO15CR2 TP (20:36)
[2018-09-09] MEDS: ENOXAPARIN 40 MG/0.4 ML SQ SCH (23:56)
[2018-09-10 00:03] VITALS: BP 128/64
[2018-09-10] MEDS: OXYcodone IR 5MG TABLET PO PRN (00:10)
[2018-09-10] MEDS: SODIUM CHLORIDE 0.9% 1,000 ML IV SCH (03:34)
[2018-09-10 05:19] LABS: BASOPHILS # (AUTO) 0.01 x10^3/uL (0-0.1); BASOPHILS % (AUTO) 0 % (0-1); EOSINOPHILS # (AUTO) 0.23 x10^3/uL (0-0.4); EOSINOPHILS % (AUTO) 6 % (1-7); LYMPHOCYTES # (AUTO) 0.46 x10^3/uL (1-3.4); LYMPHOCYTES % (AUTO) 11 % (22-44); MD NO; MEAN CORPUSCULAR HEMOGLOBIN 27.1 pg (27.0-34.8); MEAN CORPUSCULAR VOLUME 84.6 fL (80-100); MONOCYTES # (AUTO) 0.23 x10^3/uL (0.2-0.8); MONOCYTES % (AUTO) 5 % (2-9); NEUTROPHILS # (AUTO) 3.28 x10^3/uL (1.8-6.8); NEUTROPHILS % (AUTO) 78 % (42-75); PLATELET COUNT 193 x10^3/uL (130-400); RED BLOOD COUNT 4.03 x10^6/uL (3.82-5.3); RED CELL DISTRIBUTION WIDTH 16.5 % (9.6-15.2)
[2018-09-10 05:24] LABS: ANION GAP 2 mmol/L (5-15); CALCIUM 8.1 mg/dL (8.5-10.1); CHLORIDE 109 mmol/L (98-107); CREATININE 0.65 mg/dL (0.55-1.02)
[2018-09-10 05:51] LABS: HEMOGLOBIN A1C 5.7 % (4.2-6.3)
[2018-09-10] MEDS: LEVOTHYROXINE 175 MCG TABLET PO SCH (06:02)
[2018-09-10 06:58] VITALS: BP 123/69
[2018-09-10] MEDS: GABAPENTIN 100 MG CAPSULE PO SCH ×3 (09:00→20:47)
[2018-09-10] MEDS: CLOPIDOGREL 75 MG TABLET PO SCH (09:04)
[2018-09-10] MEDS: DULOXETINE 30 MG CAPSULE.DR PO SCH (09:04)
[2018-09-10] MEDS: ASPIRIN 81 MG TABLET EC PO SCH (09:04)
[2018-09-10] MEDS: PANTOPROZOLE 40MG TABLET PO SCH (09:04)
[2018-09-10] MEDS: VANCOMYCIN 2,000 MG in SODIUM CHLORIDE 0.9% 500 ML IV SCH (09:04)
[2018-09-10] MEDS: FLUOXETINE 10 MG CAP PO SCH (09:05)
[2018-09-10] MEDS: SENNA/DOCUSATE TABLET PO SCH (09:05)
[2018-09-10 13:09] VITALS: BP 126/74
[2018-09-10 19:19] VITALS: BP 136/70
[2018-09-11 00:35] VITALS: BP 154/84
[2018-09-11] MEDS: ENOXAPARIN 40 MG/0.4 ML SQ SCH (00:51)
[2018-09-11] MEDS: LEVOTHYROXINE 175 MCG TABLET PO SCH (06:07)
[2018-09-11 07:46] VITALS: BP 168/126
[2018-09-11 08:28] VITALS: BP 162/83
[2018-09-11] MEDS: VANCOMYCIN 2,000 MG in SODIUM CHLORIDE 0.9% 500 ML IV SCH (08:32)
[2018-09-11] MEDS: GABAPENTIN 100 MG CAPSULE PO SCH ×3 (08:32→21:15)
[2018-09-11] MEDS: ASPIRIN 81 MG TABLET EC PO SCH (08:33)
[2018-09-11] MEDS: SENNA/DOCUSATE TABLET PO SCH (08:33)
[2018-09-11] MEDS: FLUOXETINE 10 MG CAP PO SCH (08:33)
[2018-09-11] MEDS: CLOPIDOGREL 75 MG TABLET PO SCH (08:33)
[2018-09-11] MEDS: DULOXETINE 30 MG CAPSULE.DR PO SCH (08:33)
[2018-09-11] MEDS: PANTOPROZOLE 40MG TABLET PO SCH (08:33)
[2018-09-11 15:22] VITALS: BP 168/82
[2018-09-11] MEDS: ALBUTEROL SULFATE 2.5MG/0.5ML NPPB SCH ×2 (16:30→22:30)
[2018-09-11] MEDS: ACYCLOVIR 200 MG CAPSULE PO SCH ×2 (16:43→21:32)
[2018-09-11 18:53] VITALS: BP 156/77
[2018-09-11] MEDS: BUDESONIDE 0.5 MG/2 ML INHA INH SCH (21:00)
[2018-09-12 00:39] VITALS: BP 149/72
[2018-09-12] MEDS: ENOXAPARIN 40 MG/0.4 ML SQ SCH (01:14)
[2018-09-12] MEDS ORDERED: ALBUTEROL SULFATE 2.5 MG/3 ML ONE (02:31)
[2018-09-12] MEDS: ALBUTEROL SULFATE 2.5MG/0.5ML NPPB SCH ×4 (02:49→20:20)
[2018-09-12] MEDS: LEVOTHYROXINE 175 MCG TABLET PO SCH (06:38)
[2018-09-12 07:55] VITALS: BP 149/75
[2018-09-12] MEDS ORDERED: ALBUTEROL/IPRATROPIUM 2.5MG/0.5MG, 3 ML ONE (08:27)
[2018-09-12] MEDS ORDERED: FLUTICASONE/VILANTEROL 200-25MCG/INH INH SCH (09:00)
[2018-09-12] MEDS: BUDESONIDE 0.5 MG/2 ML INHA INH SCH ×2 (09:00→20:20)
[2018-09-12] MEDS: SENNA/DOCUSATE TABLET PO SCH (09:00)
[2018-09-12] MEDS: GABAPENTIN 100 MG CAPSULE PO SCH ×3 (09:47→21:59)
[2018-09-12] MEDS: DULOXETINE 30 MG CAPSULE.DR PO SCH (09:47)
[2018-09-12] MEDS: ASPIRIN 81 MG TABLET EC PO SCH (09:47)
[2018-09-12] MEDS: FLUOXETINE 10 MG CAP PO SCH (09:48)
[2018-09-12] MEDS: ACYCLOVIR 200 MG CAPSULE PO SCH ×3 (09:48→21:59)
[2018-09-12] MEDS: PANTOPROZOLE 40MG TABLET PO SCH (09:48)
[2018-09-12] MEDS: CLOPIDOGREL 75 MG TABLET PO SCH (09:48)
[2018-09-12] MEDS: VANCOMYCIN 2,000 MG in SODIUM CHLORIDE 0.9% 500 ML IV SCH (10:22)
[2018-09-12 14:59] VITALS: BP 144/79
[2018-09-12 19:41] VITALS: BP 134/70
[2018-09-13 01:39] VITALS: BP 139/64
[2018-09-13] MEDS: ALBUTEROL SULFATE 2.5MG/0.5ML NPPB SCH ×2 (02:37→06:41)
[2018-09-13] MEDS: LEVOTHYROXINE 175 MCG TABLET PO SCH (05:43)
[2018-09-13] MEDS: ENOXAPARIN 40 MG/0.4 ML SQ SCH (05:43)
[2018-09-13] MEDS: BUDESONIDE 0.5 MG/2 ML INHA INH SCH (06:40)
[2018-09-13] MEDS ORDERED: ALBUTEROL SULFATE 2.5MG/0.5ML NPPB PRN (07:00)
[2018-09-13 07:48] VITALS: BP 135/68
[2018-09-13] MEDS: DULOXETINE 30 MG CAPSULE.DR PO SCH (08:57)
[2018-09-13] MEDS: SENNA/DOCUSATE TABLET PO SCH (08:57)
[2018-09-13] MEDS: FLUOXETINE 10 MG CAP PO SCH (08:57)
[2018-09-13] MEDS: PANTOPROZOLE 40MG TABLET PO SCH (08:57)
[2018-09-13] MEDS: GABAPENTIN 100 MG CAPSULE PO SCH ×2 (08:57→16:41)
[2018-09-13] MEDS: CLOPIDOGREL 75 MG TABLET PO SCH (08:57)
[2018-09-13] MEDS: ACYCLOVIR 200 MG CAPSULE PO SCH ×2 (08:57→16:41)
[2018-09-13] MEDS: ASPIRIN 81 MG TABLET EC PO SCH (08:58)
[2018-09-13] MEDS ORDERED: VANCOMYCIN 1,500 MG in SODIUM CHLORIDE 0.9% 250 ML IV SCH (10:00)
[2018-09-13] MEDS ORDERED: ACYC-113 PO (11:52)
[2018-09-13] MEDS ORDERED: ASPI81TA45 PO (11:52)
[2018-09-13] MEDS ORDERED: CLOP75TA PO (11:52)
[2018-09-13] MEDS ORDERED: DOXY100T9 PO (12:01)
[2018-09-13 15:45] VITALS: BP 165/82
== END 2018-09-13 17:04 | DRG 603 ==
LOC: ED 18:30 → EDIP 19:16 → 3NW 20:15 → 3NE 09-12 08:28
PROVIDERS: ADMIT Internal Medicine; ATTEND Internal Medicine
DX: L03.115 Cellulitis of right lower limb (principal); L97.909 Non-pressure chronic ulcer of unspecified part of unspecified lower leg with unspecified severity; J96.10 Chronic respiratory failure, unspecified whether with hypoxia or hypercapnia; F11.20 Opioid dependence, uncomplicated; L03.116 Cellulitis of left lower limb; D72.825 Bandemia; E03.9 Hypothyroidism, unspecified; E66.9 Obesity, unspecified; E83.42 Hypomagnesemia; G62.9 Polyneuropathy, unspecified; G89.4 Chronic pain syndrome; I10 Essential (primary) hypertension; I35.0 Nonrheumatic aortic (valve) stenosis; I83.009 Varicose veins of unspecified lower extremity with ulcer of unspecified site; I87.8 Other specified disorders of veins; J44.9 Chronic obstructive pulmonary disease, unspecified; M16.0 Bilateral primary osteoarthritis of hip; M17.0 Bilateral primary osteoarthritis of knee; Z96.642 Presence of left artificial hip joint; M19.90 Unspecified osteoarthritis, unspecified site; Z79.02 Long term (current) use of antithrombotics/antiplatelets; Z79.82 Long term (current) use of aspirin; Z79.890 Hormone replacement therapy; Z86.14 Personal history of Methicillin resistant Staphylococcus aureus infection; Z87.891 Personal history of nicotine dependence; Z90.710 Acquired absence of both cervix and uterus; Z95.2 Presence of prosthetic heart valve; Z96.619 Presence of unspecified artificial shoulder joint; Z99.3 Dependence on wheelchair; Z99.81 Dependence on supplemental oxygen; Z90.49 Acquired absence of other specified parts of digestive tract; G60.8 Other hereditary and idiopathic neuropathies; Z68.38 Body mass index [BMI] 38.0-38.9, adult
CPT/HCPCS: 36415; 71045; 80048; 80053; 80202; 82962; 83036; 83605; 83735; 84145; 84443; 85025; 85610; 86140; 87040; 93005; 93970; 94640; 96374; G0378; J1650; J2543; J3370; J7611; J7626; J3475; J7030; J7040

== ENCOUNTER 2018-10-22 18:01 | Inpatient (IN) | payer MEDICARE ==
[~2018-10-22] VITALS: Ht 172.7 cm; Wt 99.8 kg
[~2018-10-22 18:01] MED LIST changes: +ACYC-113 PO; +BIFI4CAP PO; +DOXY100T9 PO; +ESOM20TA PO; +FLUO15CR2 TP; +FLUT1BLS MT; +LINE600T15 PO; -LINE600T33 PO; +LISI1TAB19 PO; -LISI1TAB5 PO; +MORP-52 PO; +OXYC5TAB2 PO; +SENN-149 PO
--- NOTE | 2018-10-22 18:19 | NUR ---
CONTACT PRECAUTIONS PLACED D/T HX OF MRSA
--- NOTE | 2018-10-22 18:19 | NUR ---
BIB BY [facility] FOR POOR HEALING RLE WOUND (CHRONIC CELLULITUS X ROUGHLY 12 MONTHS WITH WORSENING PURULENT DRAINAGE/DISCOLORATION X 7 DAYS). AFEBRILE/APPEARS WELL/VSS REPORTS HX OF MRSA ON HOME 2L NC/ ON NO CURRENT ABX-ONLY WOUND CARE
--- NOTE | 2018-10-22 18:55 | NUR ---
PIV STARTED, LABS DRAWN. PT RESTING ON EROS. JORGE LUISS. PANFILON. DENIES NEEDS.
[2018-10-22 19:02] LABS: BASOPHILS # (AUTO) 0.03 x10^3/uL (0-0.1); BASOPHILS % (AUTO) 0 % (0-1); EOSINOPHILS % (AUTO) 3 % (1-7); LYMPHOCYTES # (AUTO) 1.18 x10^3/uL (1-3.4); LYMPHOCYTES % (AUTO) 18 % (22-44); MD NO; MEAN CORPUSCULAR HEMOGLOBIN 27.4 pg (27.0-34.8); MEAN CORPUSCULAR HGB CONC 32.4 g/dL (32.4-35.8); MEAN CORPUSCULAR VOLUME 84.6 fL (80-100); MEAN PLATELET VOLUME 7.2 fL (7.4-10.4); MONOCYTES # (AUTO) 0.51 x10^3/uL (0.2-0.8); MONOCYTES % (AUTO) 8 % (2-9); NEUTROPHILS # (AUTO) 4.58 x10^3/uL (1.8-6.8); NEUTROPHILS % (AUTO) 71 % (42-75); PLATELET COUNT 393 x10^3/uL (130-400); RED BLOOD COUNT 5.02 x10^6/uL (3.82-5.3); RED CELL DISTRIBUTION WIDTH 15.8 % (9.6-15.2)
[2018-10-22 19:09] LABS: ANION GAP 4 mmol/L (5-15); CALCIUM 9.1 mg/dL (8.5-10.1); CHLORIDE 100 mmol/L (98-107); CREATININE 0.98 mg/dL (0.55-1.02)
--- NOTE | 2018-10-22 19:44 | NUR ---
PT ASLEEP ON GURNEY. PT AWARE OF POC- MD TO SEE PT. PT DENIES NEEDS. NADN. LEGGETT.
--- NOTE | 2018-10-22 19:54 | NUR ---
ED PROVIDER AT BEDSIDE DISCUSSING POC W/ PT. PT RESTING IN BED W/O ACUTE DISTRESS.
--- NOTE | 2018-10-22 20:58 | NUR ---
RECEIVED REPORT FROM MACK CARTER AND ASSUMED PT CARE
[2018-10-22] MEDS ORDERED: SODIUM CHLORIDE FLUSH 10ML SYR IVF PRN (21:00)
--- NOTE | 2018-10-22 21:50 | NUR ---
PT GIVEN SNACK WHILE AWAITING ADMISION. RESTING IN BED W/O DSITRESS.
--- NOTE | 2018-10-22 22:05 | NUR ---
GAVE REPORT TO MACK MORFIN AND PENDING TRANSPORT TO FLOOR.
[2018-10-22] MEDS ORDERED: ACETAMINOPHEN 325 MG TABLET PO PRN (22:30)
[2018-10-22] MEDS ORDERED: hydrALAzine 20 MG/ML, 1ML IVPush PRN (22:30)
[2018-10-22] MEDS ORDERED: ONDANSETRON 2MG/ML, 2ML IVPush PRN (22:30)
[2018-10-22] MEDS ORDERED: GABAPENTIN 300 MG CAPSULE PO PRN (22:30)
[2018-10-22] MEDS ORDERED: ONDANSETRON ODT 4 MG PO PRN (22:30)
[2018-10-22] MEDS ORDERED: BISACODYL 10 MG SUPP PR PRN (22:30)
[2018-10-22] MEDS ORDERED: DOCUSATE 100 MG CAPSULE PO PRN (22:30)
[2018-10-22] MEDS ORDERED: HYDROcodone/APAP 5/325 TABLET PO PRN (22:30)
[2018-10-22] MEDS ORDERED: POLYETHYLENE GLYCOL 17 GM PACKET PO PRN (22:30)
[2018-10-22] MEDS ORDERED: PROMETHAZINE 25 MG/ML, 1ML IM PRN (22:30)
[2018-10-22 22:50] LABS: HCT (SEDRATE) 42.5 % (34.6-47.8)
[2018-10-22 22:59] LABS: C-REACTIVE PROTEIN, QUANT 0.91 mg/dL (0.02-0.49); FREE T4 (FREE THYROXINE) 1.1 ng/dL (0.76-1.46)
[2018-10-22] MEDS ORDERED: VANCOMYCIN PER PHARMACY MC PRN (23:00)
[2018-10-22] MEDS ORDERED: PHARMACOKINETIC CONSULTATION MC ONE (23:00)
[2018-10-22] MEDS ORDERED: VANCOMYCIN PMX 1GM/200ML 200 ML IV ONE (23:00)
[2018-10-22] MEDS ORDERED: PHARMACOKINETIC MONITORING MC PRN (23:00)
[2018-10-22] MEDS ORDERED: CEFTRIAXONE PMX 2GM/50ML 50 ML IV SCH (23:00)
[2018-10-22] MEDS ORDERED: ALBUTEROL/IPRATROPIUM 2.5MG/0.5MG, 3 ML NPPB PRN (23:30)
[2018-10-23] MEDS: GABAPENTIN 300 MG CAPSULE PO SCH ×2 (00:22→08:43)
[2018-10-23] MEDS: ENOXAPARIN 40 MG/0.4 ML SQ SCH ×2 (00:23→22:28)
[2018-10-23] MEDS: METRONIDAZOLE PMX 500MG/100ML 100 ML IV SCH ×2 (01:55→11:39)
[2018-10-23 02:10] VITALS: BP 120/86
[2018-10-23] MEDS: VANCOMYCIN 2,000 MG in SODIUM CHLORIDE 0.9% 500 ML IV SCH (03:10)
[2018-10-23] MEDS ORDERED: DIPHENHYDRAMINE 25 MG CAPSULE PO ONE (04:30)
[2018-10-23] MEDS ORDERED: ALBUTEROL SULFATE 2.5 MG/3 ML NPPB SCH (06:00)
[2018-10-23 07:32] LABS: ALANINE AMINOTRANSFERASE 7 U/L (12-78); ALBUMIN 2.7 g/dL (3.4-5.0); ANION GAP 6 mmol/L (5-15); CALCIUM 8.5 mg/dL (8.5-10.1); CHLORIDE 105 mmol/L (98-107); CREATININE 1.03 mg/dL (0.55-1.02)
[2018-10-23 07:34] VITALS: BP 97/59
[2018-10-23 07:36] LABS: ALKALINE PHOSPHATASE 96 U/L (45-117); BILIRUBIN,TOTAL 0.4 mg/dL (0.2-1.0); CHOL/HDL RATIO 6.9; CHOLESTEROL, TOTAL 138 mg/dL (140-239); HDL CHOL % 14 % (28-40); HDL CHOLESTEROL (DIRECT) 20 mg/dL (40-60); LDL CHOLESTEROL,CALCULATED 72 mg/dL (54-169); LDL/HDL RATIO 3.6 (0.5-3.0); TOTAL PROTEIN 6.6 g/dL (6.4-8.2); TRIGLYCERIDES 230 mg/dL (50-200); VLDL CHOLESTEROL 46 mg/dL (0-25)
[2018-10-23 08:01] LABS: MEAN CORPUSCULAR HEMOGLOBIN 26.6 pg (27.0-34.8); MEAN CORPUSCULAR HGB CONC 31.7 g/dL (32.4-35.8); PLATELET COUNT 299 x10^3/uL (130-400); RED CELL DISTRIBUTION WIDTH 15.1 % (9.6-15.2)
[2018-10-23] MEDS: CLOPIDOGREL 75 MG TABLET PO SCH (08:42)
[2018-10-23] MEDS: ASPIRIN 81 MG TABLET EC PO SCH (08:42)
[2018-10-23] MEDS: LEVOTHYROXINE 175 MCG TABLET PO SCH (08:42)
[2018-10-23 08:51] LABS: MD YES
[2018-10-23 08:53] LABS: NRBC % (MANUAL) 1 % (0-1)
[2018-10-23 08:54] LABS: LYMPH#(MANUAL) 0.12 x10^3/uL (1-3.4); LYMPHS% (MANUAL) 3 % (22-44)
[2018-10-23 08:55] LABS: BAND#(MANUAL) 1.39 x10^3/uL; BANDS%(MANUAL) 34 % (0-7); SEG#(MANUAL) 2.58 x10^3/uL (1.8-6.8); SEGS% (MANUAL) 63 % (42-75)
[2018-10-23 08:57] LABS: <PLATELET ESTIMATE> ADEQUATE; <PLT MORPHOLOGY> NORMAL PLT MORPH; ANISOCYTOSIS 1+; HYPOCHROMIA 1+; STOMATOCYTES 1+
[2018-10-23] MEDS ORDERED: BUDESONIDE 0.5 MG/2 ML INHA NPPB SCH (09:00)
[2018-10-23] MEDS ORDERED: KETOROLAC 30 MG/1 ML IVPush ONE (10:00)
[2018-10-23] MEDS ORDERED: NALOXONE 0.4 MG/ML, 1ML ONE (10:04)
[2018-10-23] MEDS ORDERED: MAGNESIUM SULFATE PMX 2GM/50ML 50 ML IV ONE (12:00)
[2018-10-23 12:15] VITALS: BP 81/46
[2018-10-23] MEDS ORDERED: SODIUM CHLORIDE 0.9%, 500ML IVBOLUS ONE (13:00)
[2018-10-23] MEDS ORDERED: NALOXONE 0.4 MG/ML, 1ML IVPush PRN ×2 (13:30→16:30)
[2018-10-23 13:56] LABS: TROPONIN I < 0.015 ng/mL (0.000-0.045)
[2018-10-23 14:44] LABS: TROPONIN I 0.031 ng/mL (0.000-0.045)
[2018-10-23] MEDS ORDERED: NALOXONE 0.4 MG/ML, 1ML IVPush ONE ×2 (15:00→15:30)
[2018-10-23] MEDS: MEROPENEM 1 GM in SODIUM CHLORIDE 0.9% 100 ML IV SCH ×2 (15:13→22:55)
[2018-10-23] MEDS: LACTOBACILLUS CHEW TABLET PO SCH ×2 (16:00→21:00)
[2018-10-23] MEDS: NALOXONE IV SCH (17:08)
[2018-10-23] MEDS: SODIUM CHLORIDE 0.9% IV SCH (17:08)
[2018-10-23] MEDS ORDERED: FLUCONAZOLE 200 MG/100 ML 100 ML IV SCH (17:30)
[2018-10-23 17:32] LABS: MICROSCOPIC INDICATED
[2018-10-23 17:37] LABS: CULTURE INDICATED? YES
[2018-10-23] MEDS: ATORVASTATIN 40 MG TABLET PO SCH (21:00)
[2018-10-24] MEDS: NALOXONE IV SCH (02:55)
[2018-10-24] MEDS: SODIUM CHLORIDE 0.9% IV SCH (02:55)
[2018-10-24] MEDS: VANCOMYCIN 2,000 MG in SODIUM CHLORIDE 0.9% 500 ML IV SCH (02:56)
[2018-10-24 04:08] VITALS: BP 116/44
[2018-10-24 04:45] LABS: BASOPHILS # (AUTO) 0.01 x10^3/uL (0-0.1); BASOPHILS % (AUTO) 0 % (0-1); EOSINOPHILS # (AUTO) 0.04 x10^3/uL (0-0.4); EOSINOPHILS % (AUTO) 1 % (1-7); LYMPHOCYTES # (AUTO) 0.37 x10^3/uL (1-3.4); LYMPHOCYTES % (AUTO) 8 % (22-44); MD NO; MEAN CORPUSCULAR HEMOGLOBIN 27.2 pg (27.0-34.8); MEAN CORPUSCULAR HGB CONC 32.1 g/dL (32.4-35.8); MEAN CORPUSCULAR VOLUME 84.9 fL (80-100); MEAN PLATELET VOLUME 7.2 fL (7.4-10.4); MONOCYTES # (AUTO) 0.28 x10^3/uL (0.2-0.8); MONOCYTES % (AUTO) 6 % (2-9); NEUTROPHILS # (AUTO) 3.85 x10^3/uL (1.8-6.8); NEUTROPHILS % (AUTO) 85 % (42-75); PLATELET COUNT 274 x10^3/uL (130-400); RED BLOOD COUNT 4.27 x10^6/uL (3.82-5.3); RED CELL DISTRIBUTION WIDTH 14.9 % (9.6-15.2)
[2018-10-24 04:56] LABS: ALBUMIN 2.3 g/dL (3.4-5.0); ANION GAP 5 mmol/L (5-15); CALCIUM 8.1 mg/dL (8.5-10.1); CHLORIDE 107 mmol/L (98-107)
[2018-10-24 05:00] LABS: ALANINE AMINOTRANSFERASE 11 U/L (12-78); ALKALINE PHOSPHATASE 77 U/L (45-117); BILIRUBIN,TOTAL 0.7 mg/dL (0.2-1.0); CREATININE 0.92 mg/dL (0.55-1.02); TOTAL PROTEIN 5.8 g/dL (6.4-8.2)
[2018-10-24] MEDS: MEROPENEM 1 GM in SODIUM CHLORIDE 0.9% 100 ML IV SCH ×2 (06:38→15:41)
[2018-10-24] MEDS: ASPIRIN 81 MG TABLET EC PO SCH (08:44)
[2018-10-24] MEDS: LACTOBACILLUS CHEW TABLET PO SCH ×3 (08:44→22:15)
[2018-10-24] MEDS: LEVOTHYROXINE 175 MCG TABLET PO SCH (08:44)
[2018-10-24] MEDS: CLOPIDOGREL 75 MG TABLET PO SCH (08:44)
[2018-10-24 11:02] VITALS: BP 132/64
[2018-10-24 14:30] VITALS: BP 128/64
[2018-10-24 19:17] VITALS: BP 133/72
[2018-10-24] MEDS: ATORVASTATIN 40 MG TABLET PO SCH (22:15)
[2018-10-24] MEDS: ENOXAPARIN 40 MG/0.4 ML SQ SCH (22:20)
[2018-10-25] MEDS: MEROPENEM 1 GM in SODIUM CHLORIDE 0.9% 100 ML IV SCH ×3 (00:19→15:53)
[2018-10-25 01:01] VITALS: BP 149/76
[2018-10-25] MEDS: VANCOMYCIN 2,000 MG in SODIUM CHLORIDE 0.9% 500 ML IV SCH (03:09)
[2018-10-25 06:50] VITALS: BP 171/78
[2018-10-25] MEDS: CLOPIDOGREL 75 MG TABLET PO SCH (08:47)
[2018-10-25] MEDS: ASPIRIN 81 MG TABLET EC PO SCH (08:47)
[2018-10-25] MEDS: LACTOBACILLUS CHEW TABLET PO SCH ×3 (08:48→21:31)
[2018-10-25] MEDS: LEVOTHYROXINE 175 MCG TABLET PO SCH (08:48)
[2018-10-25 08:51] VITALS: BP 166/61
[2018-10-25 12:59] VITALS: BP 162/72
[2018-10-25 18:52] VITALS: BP 160/74
[2018-10-25] MEDS: ATORVASTATIN 40 MG TABLET PO SCH (21:31)
[2018-10-25] MEDS: ENOXAPARIN 40 MG/0.4 ML SQ SCH (21:32)
[2018-10-26] MEDS: MEROPENEM 1 GM in SODIUM CHLORIDE 0.9% 100 ML IV SCH ×3 (00:19→16:48)
[2018-10-26 00:37] VITALS: BP 157/73
[2018-10-26] MEDS ORDERED: maalox/diphenh/lido/sucralfate 5 ML PO PRN (01:00)
[2018-10-26] MEDS: VANCOMYCIN 2,000 MG in SODIUM CHLORIDE 0.9% 500 ML IV SCH (03:01)
[2018-10-26] MEDS: LACTOBACILLUS CHEW TABLET PO SCH ×3 (08:21→21:21)
[2018-10-26] MEDS: LEVOTHYROXINE 175 MCG TABLET PO SCH (08:21)
[2018-10-26] MEDS: ASPIRIN 81 MG TABLET EC PO SCH (08:21)
[2018-10-26] MEDS: CLOPIDOGREL 75 MG TABLET PO SCH (08:21)
[2018-10-26 13:09] VITALS: BP 167/92
[2018-10-26 18:45] VITALS: BP 168/68
[2018-10-26] MEDS: ATORVASTATIN 40 MG TABLET PO SCH (21:20)
[2018-10-26] MEDS: ENOXAPARIN 40 MG/0.4 ML SQ SCH (21:21)
[2018-10-27 00:38] VITALS: BP 172/75
[2018-10-27] MEDS: MEROPENEM 1 GM in SODIUM CHLORIDE 0.9% 100 ML IV SCH ×3 (00:43→17:27)
[2018-10-27] MEDS ORDERED: VANCOMYCIN 1,600 MG in SODIUM CHLORIDE 0.9% 250 ML IV SCH (03:00)
[2018-10-27 06:35] LABS: MEAN CORPUSCULAR HEMOGLOBIN 27.1 pg (27.0-34.8); MEAN CORPUSCULAR HGB CONC 32.1 g/dL (32.4-35.8); MEAN CORPUSCULAR VOLUME 84.6 fL (80-100); MEAN PLATELET VOLUME 7.4 fL (7.4-10.4); PLATELET COUNT 221 x10^3/uL (130-400); RED BLOOD COUNT 4.69 x10^6/uL (3.82-5.3); RED CELL DISTRIBUTION WIDTH 14.6 % (9.6-15.2)
[2018-10-27 06:38] LABS: ANION GAP 5 mmol/L (5-15); CALCIUM 8.8 mg/dL (8.5-10.1); CHLORIDE 106 mmol/L (98-107); CREATININE 0.52 mg/dL (0.55-1.02)
[2018-10-27 07:01] LABS: BASOPHILS # (AUTO) 0.01 x10^3/uL (0-0.1); BASOPHILS % (AUTO) 0 % (0-1); EOSINOPHILS # (AUTO) 0.12 x10^3/uL (0-0.4); EOSINOPHILS % (AUTO) 5 % (1-7); LYMPHOCYTES # (AUTO) 0.65 x10^3/uL (1-3.4); LYMPHOCYTES % (AUTO) 26 % (22-44); MD SCAN; MONOCYTES # (AUTO) 0.33 x10^3/uL (0.2-0.8); MONOCYTES % (AUTO) 13 % (2-9); NEUTROPHILS # (AUTO) 1.37 x10^3/uL (1.8-6.8); NEUTROPHILS % (AUTO) 55 % (42-75)
[2018-10-27 07:20] VITALS: BP 175/80
[2018-10-27] MEDS: CLOPIDOGREL 75 MG TABLET PO SCH (08:44)
[2018-10-27] MEDS: LACTOBACILLUS CHEW TABLET PO SCH ×3 (08:44→20:22)
[2018-10-27] MEDS: LEVOTHYROXINE 175 MCG TABLET PO SCH (08:44)
[2018-10-27] MEDS: ASPIRIN 81 MG TABLET EC PO SCH (08:44)
[2018-10-27 13:29] VITALS: BP 158/67
[2018-10-27] MEDS ORDERED: VANCOMYCIN 2,000 MG in SODIUM CHLORIDE 0.9% 500 ML IV SCH (15:00)
[2018-10-27 19:47] VITALS: BP 159/64
[2018-10-27] MEDS: ATORVASTATIN 40 MG TABLET PO SCH (20:21)
[2018-10-27] MEDS: ENOXAPARIN 40 MG/0.4 ML SQ SCH (20:22)
[2018-10-28] MEDS: MEROPENEM 1 GM in SODIUM CHLORIDE 0.9% 100 ML IV SCH ×2 (00:31→08:00)
[2018-10-28 01:23] VITALS: BP 144/66
[2018-10-28 07:20] VITALS: BP 151/63
[2018-10-28] MEDS: ASPIRIN 81 MG TABLET EC PO SCH (08:01)
[2018-10-28] MEDS: LEVOTHYROXINE 175 MCG TABLET PO SCH (08:01)
[2018-10-28] MEDS: LACTOBACILLUS CHEW TABLET PO SCH ×3 (08:01→21:26)
[2018-10-28] MEDS: CLOPIDOGREL 75 MG TABLET PO SCH (08:01)
[2018-10-28] MEDS: ERTAPENEM 1 GM in SODIUM CHLORIDE 0.9% 50 ML IV SCH (14:11)
[2018-10-28 14:20] VITALS: BP 160/75
[2018-10-28 19:58] VITALS: BP 154/69
[2018-10-28] MEDS: ENOXAPARIN 40 MG/0.4 ML SQ SCH (21:26)
[2018-10-28] MEDS: ATORVASTATIN 40 MG TABLET PO SCH (21:26)
[2018-10-28] MEDS: LINEZOLID 600 MG TABLET PO SCH (21:26)
[2018-10-29 00:38] VITALS: BP 160/74
[2018-10-29 07:13] VITALS: BP 183/74
[2018-10-29] MEDS: LINEZOLID 600 MG TABLET PO SCH ×2 (08:25→21:12)
[2018-10-29] MEDS: CLOPIDOGREL 75 MG TABLET PO SCH (08:26)
[2018-10-29] MEDS: ASPIRIN 81 MG TABLET EC PO SCH (08:26)
[2018-10-29] MEDS: LACTOBACILLUS CHEW TABLET PO SCH ×3 (08:26→21:12)
[2018-10-29] MEDS: LEVOTHYROXINE 175 MCG TABLET PO SCH (08:26)
[2018-10-29] MEDS: ERTAPENEM 1 GM in SODIUM CHLORIDE 0.9% 50 ML IV SCH (12:48)
[2018-10-29 14:00] VITALS: BP 152/67
[2018-10-29 19:29] VITALS: BP 169/76
[2018-10-29] MEDS: ATORVASTATIN 40 MG TABLET PO SCH (21:12)
[2018-10-29] MEDS: ENOXAPARIN 40 MG/0.4 ML SQ SCH (21:14)
[2018-10-30 05:47] VITALS: BP 186/81
[2018-10-30 08:25] VITALS: BP 178/81
[2018-10-30] MEDS: LACTOBACILLUS CHEW TABLET PO SCH ×3 (09:07→20:21)
[2018-10-30] MEDS: CLOPIDOGREL 75 MG TABLET PO SCH (09:07)
[2018-10-30] MEDS: LINEZOLID 600 MG TABLET PO SCH (09:07)
[2018-10-30] MEDS: LEVOTHYROXINE 175 MCG TABLET PO SCH (09:07)
[2018-10-30] MEDS: ASPIRIN 81 MG TABLET EC PO SCH (09:07)
[2018-10-30] MEDS ORDERED: ERTAPENEM 1 GM in SODIUM CHLORIDE 0.9% 50 ML IV SCH (13:00)
[2018-10-30 14:00] VITALS: BP 169/85
[2018-10-30] MEDS: ATORVASTATIN 40 MG TABLET PO SCH (20:21)
[2018-10-30] MEDS: ENOXAPARIN 40 MG/0.4 ML SQ SCH (20:22)
[2018-10-30 20:48] VITALS: BP 155/77
[2018-10-30] MEDS ORDERED: LINEZOLID 600 MG TABLET PO SCH (21:00)
[2018-10-31 00:51] VITALS: BP 152/61
[2018-10-31 06:38] VITALS: BP 176/80
[2018-10-31] MEDS: ASPIRIN 81 MG TABLET EC PO SCH (09:00)
[2018-10-31] MEDS: LACTOBACILLUS CHEW TABLET PO SCH ×3 (09:00→20:06)
[2018-10-31] MEDS: LEVOTHYROXINE 175 MCG TABLET PO SCH (09:00)
[2018-10-31] MEDS: CLOPIDOGREL 75 MG TABLET PO SCH (09:00)
[2018-10-31 12:32] VITALS: BP 148/84
[2018-10-31] MEDS: ENOXAPARIN 40 MG/0.4 ML SQ SCH (20:06)
[2018-10-31] MEDS: ATORVASTATIN 40 MG TABLET PO SCH (20:06)
[2018-10-31 20:16] VITALS: BP 170/62
[2018-11-01 01:23] VITALS: BP 160/74
[2018-11-01 06:55] VITALS: BP 146/75
[2018-11-01] MEDS: LACTOBACILLUS CHEW TABLET PO SCH ×2 (09:57→16:58)
[2018-11-01] MEDS: LEVOTHYROXINE 175 MCG TABLET PO SCH (09:57)
[2018-11-01] MEDS: CLOPIDOGREL 75 MG TABLET PO SCH (09:57)
[2018-11-01] MEDS: ASPIRIN 81 MG TABLET EC PO SCH (09:57)
[2018-11-01 14:26] VITALS: BP 139/78
== END 2018-11-01 17:15 | disposition home health service (06) | DRG 871 ==
LOC: ED 18:10 → EDIP 20:59 → 3N 22:22 → CCU 10-23 13:34 → 3N 10-24 09:38
PROVIDERS: ADMIT Internal Medicine; ATTEND Internal Medicine
PROC: 0T9B70Z Drainage of Bladder with Drainage Device, Via Natural or Artificial Opening (ICD-10-PCS; principal; 2018-10-23)
DX: A41.02 Sepsis due to Methicillin resistant Staphylococcus aureus (principal); J96.21 Acute and chronic respiratory failure with hypoxia; G92 Toxic encephalopathy; L03.115 Cellulitis of right lower limb; L03.116 Cellulitis of left lower limb; L97.919 Non-pressure chronic ulcer of unspecified part of right lower leg with unspecified severity; F11.20 Opioid dependence, uncomplicated; I50.32 Chronic diastolic (congestive) heart failure; J98.11 Atelectasis; L97.209 Non-pressure chronic ulcer of unspecified calf with unspecified severity; D70.9 Neutropenia, unspecified; E03.9 Hypothyroidism, unspecified; E66.9 Obesity, unspecified; E78.5 Hyperlipidemia, unspecified; E83.42 Hypomagnesemia; G62.9 Polyneuropathy, unspecified; G89.4 Chronic pain syndrome; I11.0 Hypertensive heart disease with heart failure; I27.20 Pulmonary hypertension, unspecified; I35.0 Nonrheumatic aortic (valve) stenosis; I73.9 Peripheral vascular disease, unspecified; I77.1 Stricture of artery; Z96.619 Presence of unspecified artificial shoulder joint; Z96.642 Presence of left artificial hip joint; Z96.651 Presence of right artificial knee joint; I87.2 Venous insufficiency (chronic) (peripheral); I87.8 Other specified disorders of veins; J44.9 Chronic obstructive pulmonary disease, unspecified; L89.892 Pressure ulcer of other site, stage 2; M16.0 Bilateral primary osteoarthritis of hip; M17.0 Bilateral primary osteoarthritis of knee; Z66 Do not resuscitate; Z86.14 Personal history of Methicillin resistant Staphylococcus aureus infection; Z88.5 Allergy status to narcotic agent; Z88.8 Allergy status to other drugs, medicaments and biological substances; Z68.33 Body mass index [BMI] 33.0-33.9, adult; Z87.891 Personal history of nicotine dependence; Z90.710 Acquired absence of both cervix and uterus; Z95.2 Presence of prosthetic heart valve; Z99.3 Dependence on wheelchair; D70.2 Other drug-induced agranulocytosis; T36.95XA Adverse effect of unspecified systemic antibiotic, initial encounter; Y92.89 Other specified places as the place of occurrence of the external cause; A41.59 Other Gram-negative sepsis
CPT/HCPCS: 36415; 36600; 71045; 80048; 80053; 80061; 80202; 81001; 82140; 82533; 82803; 82962; 83036; 83605; 83735; 83880; 84439; 84443; 84484; 85025; 85651; 86140; 87040; 87070; 87077; 87081; 87086; 87186; 87205; 93005; 93306; 93922; 93925; 93970; 94640; G0378; J0696; J1335; J1650; J1885; J2185; J2310; J3370; J7620; J0360; J1450; J3475; J7040; Q0163

== ENCOUNTER 2018-12-23 15:44 | Inpatient (IN) | payer MEDICARE ==
[~2018-12-23] VITALS: Ht 172.7 cm; Wt 93.8 kg
[~2018-12-23 15:44] MED LIST changes: +DOXY-162 PO; -DOXY100T9 PO; +OXYB5TAB10 PO; -OXYB5TAB7 PO
[2018-12-23 16:30] LABS: BASOPHILS % (AUTO) 0 % (0-1); EOSINOPHILS # (AUTO) 0.11 x10^3/uL (0-0.4); EOSINOPHILS % (AUTO) 2 % (1-7); LYMPHOCYTES # (AUTO) 0.58 x10^3/uL (1-3.4); LYMPHOCYTES % (AUTO) 10 % (22-44); MD NO; MEAN CORPUSCULAR HEMOGLOBIN 26.7 pg (27.0-34.8); MEAN CORPUSCULAR HGB CONC 32.1 g/dL (32.4-35.8); MEAN CORPUSCULAR VOLUME 83.1 fL (80-100); MEAN PLATELET VOLUME 6.6 fL (7.4-10.4); MONOCYTES # (AUTO) 0.33 x10^3/uL (0.2-0.8); MONOCYTES % (AUTO) 6 % (2-9); NEUTROPHILS % (AUTO) 83 % (42-75); PLATELET COUNT 355 x10^3/uL (130-400); RED BLOOD COUNT 4.69 x10^6/uL (3.82-5.3); RED CELL DISTRIBUTION WIDTH 16.2 % (9.6-15.2)
[2018-12-23] MEDS ORDERED: SODIUM CHLORIDE FLUSH 10ML SYR IVF ONE (16:30)
[2018-12-23 16:38] LABS: ALANINE AMINOTRANSFERASE 8 U/L (12-78); ALBUMIN 3.3 g/dL (3.4-5.0); ANION GAP 7 mmol/L (5-15); CALCIUM 8.3 mg/dL (8.5-10.1); CHLORIDE 105 mmol/L (98-107); CREATININE 0.94 mg/dL (0.55-1.02)
[2018-12-23 16:40] LABS: ALKALINE PHOSPHATASE 96 U/L (45-117); BILIRUBIN,TOTAL 0.4 mg/dL (0.2-1.0); TOTAL PROTEIN 7.6 g/dL (6.4-8.2)
--- NOTE | 2018-12-23 16:55 | NUR ---
THIS IS AN 83 YO FEMALE BIB [facility] FOR "LETHARGY AND DROWSINESS" PER HOME HEALTH NURSE. 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 PATIENT STATES THAT SHE STARTED "FEELING BAD" YESTERDAY, COULD NOT SLEEP VERY WELL, AND TODAY HAS BEEN LETHARGIC. PT HAS HX OF COPD, VENOUS STASIS, DM CONTROLLED BY FOOD, DEPRESSION, HYPOTHYROIDISM, AND HAS A PAIN PUMP. PATIENT PLACED ON REGROOVER, RHYTHM IS IRREGULAR, CYCLE BP Q1 HR, CONTINUOUS SPO2 AT 96%. PATIENT RESTING ON GURNEY, ASLEEP AT THIS TIME, RESPIRATIONS EVEN AND UNLABORED, SNORING PRESENT. CALL LIGHT IN REACH.
--- NOTE | 2018-12-23 16:57 | NUR ---
HOME HEALTH RN, NELLY CUEVAS CALLED. PT LIVES ALONE AT [facility]. SHE HAS A SCOOTER THAT SHE SPENDS THE MAJORITY OF HER TIME IN. NELLY STATED THAT SHE HAS A WALKER THAT SHE USES TO TRANSFER HERSELF FROM THE SCOOTER TO THE TOILET AND WILL OCCATIONALLY TRANSFER HERSELF INTO A CHAIR. PT HAS COPD AND CAN NOT SLEEP LYING DOWN. 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 IF PT IS D/C SHE WILL NEED TO BE TRANSPORTED BY [facility] AND THEY WILL NEED TO HELP HER GET SET UP IN HER SCOOTER. NELLY STATED THAT SHE IS TRYING TO GET PT ADMITTED [facility] FOR MORE INTENSE TREATMENT OF HER STASIS WOUNDS.
--- NOTE | 2018-12-23 17:21 | NUR ---
STRAIGHT CATH COMPLETED, PT TOLERATED WELL. PT REMAINS LETHARGIC
--- NOTE | 2018-12-23 17:40 | NUR ---
PT SLEEPING, RESPIRATIONS EVEN AND UNLABORED. SNORING PRESENT.
[2018-12-23 17:52] LABS: MICROSCOPIC NOT IND
[2018-12-23] MEDS ORDERED: SODIUM CHLORIDE FLUSH 10ML SYR IVF PRN (19:00)
--- NOTE | 2018-12-23 19:14 | NUR ---
REPORT GIVEN TO MACK MCGEE. PLAN OF CARE DISCUSSED.
[2018-12-23 20:20] VITALS: BP 148/70
[2018-12-23] MEDS ORDERED: hydrALAzine 20 MG/ML, 1ML IVPush PRN (21:30)
[2018-12-23] MEDS ORDERED: DOCUSATE 100 MG CAPSULE PO PRN (21:30)
[2018-12-23] MEDS ORDERED: KETOROLAC 30 MG/1 ML IVPush ONE (21:30)
[2018-12-23] MEDS ORDERED: VANCOMYCIN PER PHARMACY MC PRN (22:30)
[2018-12-23] MEDS ORDERED: PHARMACOKINETIC CONSULTATION MC ONE (23:00)
[2018-12-23] MEDS ORDERED: PHARMACOKINETIC MONITORING MC PRN (23:00)
[2018-12-23] MEDS: AMPICILLIN/SULBACTAM 3 GM in SODIUM CHLORIDE 0.9% 100 ML IV SCH (23:33)
[2018-12-24] MEDS: VANCOMYCIN 2,000 MG in SODIUM CHLORIDE 0.9% 500 ML IV SCH (00:05)
[2018-12-24] MEDS: ENOXAPARIN 40 MG/0.4 ML SQ SCH (00:05)
[2018-12-24 00:13] VITALS: BP 160/76
[2018-12-24] MEDS ORDERED: FUROSEMIDE 20 MG/2 ML IV ONE (02:00)
[2018-12-24] MEDS ORDERED: POTASSIUM CHLORIDE 20 MEQ TAB.ER.PRT PO ONE (02:00)
[2018-12-24 02:19] VITALS: BP 159/84
[2018-12-24] MEDS: AMPICILLIN/SULBACTAM 3 GM in SODIUM CHLORIDE 0.9% 100 ML IV SCH ×4 (02:23→20:39)
[2018-12-24 02:25] LABS: MEAN CORPUSCULAR HEMOGLOBIN 26.4 pg (27.0-34.8); MEAN CORPUSCULAR HGB CONC 32.1 g/dL (32.4-35.8); MEAN CORPUSCULAR VOLUME 82.2 fL (80-100); MEAN PLATELET VOLUME 6.1 fL (7.4-10.4); PLATELET COUNT 306 x10^3/uL (130-400); RED BLOOD COUNT 4.67 x10^6/uL (3.82-5.3); RED CELL DISTRIBUTION WIDTH 15.6 % (9.6-15.2)
[2018-12-24 02:33] LABS: ANION GAP 6 mmol/L (5-15); CALCIUM 8.3 mg/dL (8.5-10.1); CHLORIDE 110 mmol/L (98-107)
[2018-12-24 02:44] LABS: CREATININE 1.01 mg/dL (0.55-1.02); FREE T4 (FREE THYROXINE) 1.18 ng/dL (0.76-1.46)
[2018-12-24 02:57] LABS: BASOPHILS # (AUTO) 0.01 x10^3/uL (0-0.1); BASOPHILS % (AUTO) 0 % (0-1); EOSINOPHILS # (AUTO) 0.02 x10^3/uL (0-0.4); EOSINOPHILS % (AUTO) 1 % (1-7); LYMPHOCYTES # (AUTO) 0.39 x10^3/uL (1-3.4); LYMPHOCYTES % (AUTO) 14 % (22-44); MD SCAN; MONOCYTES # (AUTO) 0.02 x10^3/uL (0.2-0.8); MONOCYTES % (AUTO) 1 % (2-9); NEUTROPHILS % (AUTO) 84 % (42-75)
[2018-12-24] MEDS: LEVOTHYROXINE 175 MCG TABLET PO SCH (05:56)
[2018-12-24] MEDS: PANTOPRAZOLE 20MG TABLET PO SCH (05:56)
[2018-12-24 06:36] VITALS: BP 148/73
[2018-12-24] MEDS: SENNA/DOCUSATE TABLET PO SCH (09:00)
[2018-12-24] MEDS: FLORASTOR 250 MG CAPSULE PO SCH (09:55)
[2018-12-24] MEDS: DULOXETINE 30 MG CAPSULE.DR PO SCH (09:55)
[2018-12-24] MEDS: CLOPIDOGREL 75 MG TABLET PO SCH (09:56)
[2018-12-24] MEDS: FLUOXETINE 10 MG CAP PO SCH (09:56)
[2018-12-24] MEDS: ASPIRIN 81 MG TABLET EC PO SCH (09:56)
[2018-12-24] MEDS: GABAPENTIN 300 MG CAPSULE PO SCH ×3 (09:57→20:39)
[2018-12-24] MEDS ORDERED: HYDROmorphone 1 MG/ML, 1ML INJ IV PRN (12:00)
[2018-12-24] MEDS ORDERED: HYDROmorphone 2 MG/ML, 1ML IVPush ONE (12:00)
[2018-12-24 13:26] VITALS: BP 156/78
[2018-12-24] MEDS: ACETAMINOPHEN 325 MG TABLET PO PRN ×2 (13:30→17:32)
[2018-12-24] MEDS: ONDANSETRON ODT 4 MG PO PRN ×2 (15:41→19:56)
[2018-12-24 18:48] VITALS: BP 168/74
[2018-12-24 18:53] VITALS: BP 161/73
[2018-12-25] MEDS ORDERED: NAPROXEN 250 MG TABLET PO ONE
[2018-12-25] MEDS: ENOXAPARIN 40 MG/0.4 ML SQ SCH (00:11)
[2018-12-25] MEDS: VANCOMYCIN 2,000 MG in SODIUM CHLORIDE 0.9% 500 ML IV SCH (00:11)
[2018-12-25 01:08] VITALS: BP 161/73
[2018-12-25 01:10] VITALS: BP 177/82
[2018-12-25] MEDS: ONDANSETRON ODT 4 MG PO PRN ×4 (01:25→22:28)
[2018-12-25] MEDS: AMPICILLIN/SULBACTAM 3 GM in SODIUM CHLORIDE 0.9% 100 ML IV SCH ×4 (02:36→22:05)
[2018-12-25] MEDS: ACETAMINOPHEN 325 MG TABLET PO PRN ×4 (02:36→18:02)
[2018-12-25] MEDS: POTASSIUM CHLORIDE 20 MEQ TAB.ER.PRT PO SCH ×2 (03:55→05:56)
[2018-12-25] MEDS: LEVOTHYROXINE 175 MCG TABLET PO SCH (05:55)
[2018-12-25] MEDS: PANTOPRAZOLE 20MG TABLET PO SCH (05:55)
[2018-12-25 06:50] VITALS: BP 173/71
[2018-12-25] MEDS: FUROSEMIDE 40 MG/4 ML IV SCH (08:26)
[2018-12-25] MEDS: SENNA/DOCUSATE TABLET PO SCH (08:26)
[2018-12-25] MEDS: CLOPIDOGREL 75 MG TABLET PO SCH (08:26)
[2018-12-25] MEDS: FLUOXETINE 10 MG CAP PO SCH (08:26)
[2018-12-25] MEDS: DULOXETINE 30 MG CAPSULE.DR PO SCH (08:26)
[2018-12-25] MEDS: ASPIRIN 81 MG TABLET EC PO SCH (08:26)
[2018-12-25] MEDS: FLORASTOR 250 MG CAPSULE PO SCH (08:26)
[2018-12-25] MEDS: GABAPENTIN 300 MG CAPSULE PO SCH ×3 (08:26→22:04)
[2018-12-25] MEDS ORDERED: LISINOPRIL 20 MG TABLET PO SCH (09:00)
[2018-12-25 13:36] VITALS: BP 184/82
[2018-12-25 18:18] VITALS: BP 189/80
[2018-12-25] MEDS: HYDROmorphone 2 MG/ML, 1ML IV PRN (19:49)
[2018-12-25] MEDS: LISINOPRIL 20 MG TABLET PO SCH (22:03)
[2018-12-26] VITALS: BP 137/55
[2018-12-26] MEDS: ENOXAPARIN 40 MG/0.4 ML SQ SCH (00:08)
[2018-12-26] MEDS: VANCOMYCIN 2,000 MG in SODIUM CHLORIDE 0.9% 500 ML IV SCH (00:08)
[2018-12-26] MEDS: HYDROmorphone 2 MG/ML, 1ML IV PRN ×2 (00:09→04:11)
[2018-12-26] MEDS: AMPICILLIN/SULBACTAM 3 GM in SODIUM CHLORIDE 0.9% 100 ML IV SCH ×4 (04:00→21:57)
[2018-12-26] MEDS: LEVOTHYROXINE 175 MCG TABLET PO SCH (05:56)
[2018-12-26] MEDS: PANTOPRAZOLE 20MG TABLET PO SCH (05:56)
[2018-12-26 06:07] LABS: ANION GAP 6 mmol/L (5-15); CALCIUM 8.3 mg/dL (8.5-10.1); CHLORIDE 103 mmol/L (98-107)
[2018-12-26 06:10] LABS: CREATININE 0.63 mg/dL (0.55-1.02)
[2018-12-26 07:35] VITALS: BP 149/64
[2018-12-26] MEDS: DULOXETINE 30 MG CAPSULE.DR PO SCH (07:38)
[2018-12-26] MEDS: SENNA/DOCUSATE TABLET PO SCH (07:38)
[2018-12-26] MEDS: CLOPIDOGREL 75 MG TABLET PO SCH (07:39)
[2018-12-26] MEDS: ASPIRIN 81 MG TABLET EC PO SCH (07:41)
[2018-12-26] MEDS: LISINOPRIL 20 MG TABLET PO SCH ×2 (07:41→20:13)
[2018-12-26] MEDS: FLORASTOR 250 MG CAPSULE PO SCH (07:42)
[2018-12-26] MEDS: POTASSIUM CHLORIDE 20 MEQ TAB.ER.PRT PO SCH (07:42)
[2018-12-26] MEDS: GABAPENTIN 300 MG CAPSULE PO SCH ×3 (07:43→20:13)
[2018-12-26] MEDS: FLUOXETINE 10 MG CAP PO SCH (07:44)
[2018-12-26] MEDS: FUROSEMIDE 40 MG/4 ML IV SCH (07:44)
[2018-12-26] MEDS: ACETAMINOPHEN 325 MG TABLET PO PRN ×3 (09:46→20:13)
[2018-12-26 15:30] VITALS: BP 150/69
[2018-12-26 19:42] VITALS: BP 119/64
[2018-12-27] MEDS: VANCOMYCIN 2,000 MG in SODIUM CHLORIDE 0.9% 500 ML IV SCH (00:15)
[2018-12-27] MEDS: ENOXAPARIN 40 MG/0.4 ML SQ SCH (00:16)
[2018-12-27] MEDS: ACETAMINOPHEN 325 MG TABLET PO PRN (00:21)
[2018-12-27 01:29] VITALS: BP 147/73
[2018-12-27] MEDS: AMPICILLIN/SULBACTAM 3 GM in SODIUM CHLORIDE 0.9% 100 ML IV SCH ×4 (04:21→23:43)
[2018-12-27 05:30] LABS: ANION GAP 5 mmol/L (5-15); CALCIUM 8.1 mg/dL (8.5-10.1); CHLORIDE 102 mmol/L (98-107); CREATININE 0.65 mg/dL (0.55-1.02)
[2018-12-27 05:38] LABS: BASOPHILS # (AUTO) 0.01 x10^3/uL (0-0.1); BASOPHILS % (AUTO) 0 % (0-1); EOSINOPHILS % (AUTO) 3 % (1-7); LYMPHOCYTES # (AUTO) 0.49 x10^3/uL (1-3.4); LYMPHOCYTES % (AUTO) 14 % (22-44); MD NO; MEAN CORPUSCULAR HEMOGLOBIN 26.6 pg (27.0-34.8); MEAN CORPUSCULAR HGB CONC 32.3 g/dL (32.4-35.8); MEAN CORPUSCULAR VOLUME 82.3 fL (80-100); MEAN PLATELET VOLUME 6.9 fL (7.4-10.4); MONOCYTES # (AUTO) 0.37 x10^3/uL (0.2-0.8); MONOCYTES % (AUTO) 10 % (2-9); NEUTROPHILS # (AUTO) 2.57 x10^3/uL (1.8-6.8); NEUTROPHILS % (AUTO) 73 % (42-75); PLATELET COUNT 251 x10^3/uL (130-400); RED BLOOD COUNT 4.39 x10^6/uL (3.82-5.3); RED CELL DISTRIBUTION WIDTH 15.8 % (9.6-15.2)
[2018-12-27] MEDS: LEVOTHYROXINE 175 MCG TABLET PO SCH (05:49)
[2018-12-27] MEDS: PANTOPRAZOLE 20MG TABLET PO SCH (05:49)
[2018-12-27] MEDS: HYDROmorphone 2 MG/ML, 1ML IV PRN ×3 (05:50→17:13)
[2018-12-27 07:54] VITALS: BP 151/68
[2018-12-27] MEDS ORDERED: POTASSIUM CHLORIDE 20 MEQ TAB.ER.PRT PO ONE (08:30)
[2018-12-27] MEDS: FLORASTOR 250 MG CAPSULE PO SCH (09:43)
[2018-12-27] MEDS: DULOXETINE 30 MG CAPSULE.DR PO SCH (09:43)
[2018-12-27] MEDS: CLOPIDOGREL 75 MG TABLET PO SCH (09:44)
[2018-12-27] MEDS: ASPIRIN 81 MG TABLET EC PO SCH (09:44)
[2018-12-27] MEDS: FUROSEMIDE 40 MG/4 ML IV SCH (09:48)
[2018-12-27] MEDS: GABAPENTIN 300 MG CAPSULE PO SCH ×3 (09:48→20:56)
[2018-12-27] MEDS: LISINOPRIL 20 MG TABLET PO SCH ×2 (09:49→20:55)
[2018-12-27] MEDS: SENNA/DOCUSATE TABLET PO SCH (09:57)
[2018-12-27] MEDS: FLUOXETINE 10 MG CAP PO SCH (09:57)
[2018-12-27 15:16] VITALS: BP 135/63
[2018-12-27] MEDS: POTASSIUM CHLORIDE 20 MEQ TAB.ER.PRT PO SCH (17:10)
[2018-12-27 18:53] VITALS: BP 93/57
[2018-12-27 20:55] VITALS: BP 116/68
[2018-12-28] MEDS: ENOXAPARIN 40 MG/0.4 ML SQ SCH (00:35)
[2018-12-28] MEDS: HYDROmorphone 2 MG/ML, 1ML IV PRN ×2 (00:35→05:50)
[2018-12-28 02:27] VITALS: BP 117/64
[2018-12-28] MEDS: PANTOPRAZOLE 20MG TABLET PO SCH (05:50)
[2018-12-28] MEDS: LEVOTHYROXINE 175 MCG TABLET PO SCH (05:50)
[2018-12-28] MEDS: AMPICILLIN/SULBACTAM 3 GM in SODIUM CHLORIDE 0.9% 100 ML IV SCH ×2 (05:51→10:51)
[2018-12-28] MEDS: VANCOMYCIN 2,000 MG in SODIUM CHLORIDE 0.9% 500 ML IV SCH (06:46)
[2018-12-28 07:26] VITALS: BP 120/67
[2018-12-28] MEDS: ASPIRIN 81 MG TABLET EC PO SCH (10:48)
[2018-12-28] MEDS: FLUOXETINE 10 MG CAP PO SCH (10:48)
[2018-12-28] MEDS: CLOPIDOGREL 75 MG TABLET PO SCH (10:48)
[2018-12-28] MEDS: FLORASTOR 250 MG CAPSULE PO SCH (10:48)
[2018-12-28] MEDS: GABAPENTIN 300 MG CAPSULE PO SCH ×3 (10:48→20:24)
[2018-12-28] MEDS: LISINOPRIL 20 MG TABLET PO SCH ×2 (10:49→20:20)
[2018-12-28] MEDS: DULOXETINE 30 MG CAPSULE.DR PO SCH (10:50)
[2018-12-28] MEDS: POTASSIUM CHLORIDE 20 MEQ TAB.ER.PRT PO SCH (10:51)
[2018-12-28] MEDS: FUROSEMIDE 40 MG/4 ML IV SCH (10:51)
[2018-12-28] MEDS: SENNA/DOCUSATE TABLET PO SCH (10:51)
[2018-12-28] MEDS: CEFTAZIDIME 1,000 MG in SODIUM CHLORIDE 0.9% 50 ML IV SCH (13:11)
[2018-12-28 13:54] VITALS: BP 124/69
[2018-12-28] MEDS: HYDROcodone/APAP 5/325 TABLET PO PRN ×2 (15:53→23:16)
[2018-12-28 18:39] VITALS: BP 91/55
[2018-12-29] MEDS: ENOXAPARIN 40 MG/0.4 ML SQ SCH (00:21)
[2018-12-29] MEDS: CEFTAZIDIME 1,000 MG in SODIUM CHLORIDE 0.9% 50 ML IV SCH ×2 (00:21→13:24)
[2018-12-29 02:26] VITALS: BP 119/67
[2018-12-29] MEDS: ACETAMINOPHEN 325 MG TABLET PO PRN (02:27)
[2018-12-29] MEDS: HYDROcodone/APAP 5/325 TABLET PO PRN ×3 (05:30→16:42)
[2018-12-29] MEDS: LEVOTHYROXINE 175 MCG TABLET PO SCH (05:30)
[2018-12-29] MEDS: PANTOPRAZOLE 20MG TABLET PO SCH (05:30)
[2018-12-29 08:31] VITALS: BP 123/69
[2018-12-29 09:20] LABS: ANION GAP 7 mmol/L (5-15); CHLORIDE 100 mmol/L (98-107); CREATININE 0.71 mg/dL (0.55-1.02)
[2018-12-29] MEDS: SENNA/DOCUSATE TABLET PO SCH (10:21)
[2018-12-29] MEDS: FUROSEMIDE 40 MG/4 ML IV SCH (10:21)
[2018-12-29] MEDS: CLOPIDOGREL 75 MG TABLET PO SCH (10:23)
[2018-12-29] MEDS: POTASSIUM CHLORIDE 20 MEQ TAB.ER.PRT PO SCH (10:23)
[2018-12-29] MEDS: FLORASTOR 250 MG CAPSULE PO SCH (10:23)
[2018-12-29] MEDS: LISINOPRIL 20 MG TABLET PO SCH ×2 (10:24→20:40)
[2018-12-29 10:25] VITALS: BP 131/70
[2018-12-29] MEDS: ASPIRIN 81 MG TABLET EC PO SCH (10:25)
[2018-12-29] MEDS: FLUOXETINE 10 MG CAP PO SCH (10:25)
[2018-12-29] MEDS: DULOXETINE 30 MG CAPSULE.DR PO SCH (10:25)
[2018-12-29] MEDS: GABAPENTIN 300 MG CAPSULE PO SCH ×3 (10:26→20:40)
[2018-12-29] MEDS: ONDANSETRON ODT 4 MG PO PRN (10:39)
[2018-12-29] MEDS: VANCOMYCIN 2,000 MG in SODIUM CHLORIDE 0.9% 500 ML IV SCH (18:10)
[2018-12-29 19:28] VITALS: BP 102/65
[2018-12-29] MEDS: DOCUSATE 100 MG CAPSULE PO PRN (20:51)
[2018-12-30] MEDS: ENOXAPARIN 40 MG/0.4 ML SQ SCH (00:17)
[2018-12-30] MEDS: CEFTAZIDIME 1,000 MG in SODIUM CHLORIDE 0.9% 50 ML IV SCH ×2 (00:18→13:20)
[2018-12-30 01:19] VITALS: BP 103/61
[2018-12-30] MEDS: PANTOPRAZOLE 20MG TABLET PO SCH (06:04)
[2018-12-30] MEDS: LEVOTHYROXINE 175 MCG TABLET PO SCH (06:05)
[2018-12-30] MEDS: HYDROcodone/APAP 5/325 TABLET PO PRN ×3 (07:45→22:34)
[2018-12-30] MEDS: CLOPIDOGREL 75 MG TABLET PO SCH (08:34)
[2018-12-30] MEDS: POTASSIUM CHLORIDE 20 MEQ TAB.ER.PRT PO SCH (08:34)
[2018-12-30] MEDS: ASPIRIN 81 MG TABLET EC PO SCH (08:39)
[2018-12-30] MEDS: GABAPENTIN 300 MG CAPSULE PO SCH ×3 (08:39→21:52)
[2018-12-30] MEDS: DULOXETINE 30 MG CAPSULE.DR PO SCH (08:39)
[2018-12-30] MEDS: SENNA/DOCUSATE TABLET PO SCH (08:39)
[2018-12-30] MEDS: LISINOPRIL 20 MG TABLET PO SCH ×2 (08:40→21:53)
[2018-12-30] MEDS: FLUOXETINE 10 MG CAP PO SCH (08:40)
[2018-12-30] MEDS: FUROSEMIDE 40 MG/4 ML IV SCH (08:40)
[2018-12-30] MEDS: FLORASTOR 250 MG CAPSULE PO SCH (08:45)
[2018-12-30 08:56] VITALS: BP 119/68
[2018-12-30] MEDS: ONDANSETRON ODT 4 MG PO PRN (10:45)
[2018-12-30] MEDS ORDERED: LISI-170 PO (11:52)
[2018-12-30] MEDS ORDERED: TRAM50TA2 PO (11:52)
[2018-12-30] MEDS ORDERED: CEFT1PIG IV (11:52)
[2018-12-30] MEDS ORDERED: FURO-92 PO (11:52)
[2018-12-30] MEDS ORDERED: ONDA4TAB13 PO (11:52)
[2018-12-30] MEDS ORDERED: POLY17PO5 PO (11:52)
[2018-12-30] MEDS ORDERED: LACT1TAB13 PO (11:52)
[2018-12-30] MEDS ORDERED: VANC2PIG IV (11:52)
[2018-12-30] MEDS ORDERED: HYDR-3237 PO (11:52)
[2018-12-30] MEDS ORDERED: POTA20TA6 PO (11:52)
[2018-12-30] MEDS ORDERED: HYDR-3343 PO (11:52)
[2018-12-30] MEDS ORDERED: LIDO700A20 TD (11:52)
[2018-12-30 13:29] VITALS: BP 118/90
[2018-12-30 19:44] VITALS: BP 93/56
[2018-12-31 00:11] VITALS: BP 111/57
[2018-12-31] MEDS: ENOXAPARIN 40 MG/0.4 ML SQ SCH (00:55)
[2018-12-31] MEDS: CEFTAZIDIME 1,000 MG in SODIUM CHLORIDE 0.9% 50 ML IV SCH ×2 (00:55→15:27)
[2018-12-31] MEDS: HYDROcodone/APAP 5/325 TABLET PO PRN ×4 (04:41→18:36)
[2018-12-31] MEDS: VANCOMYCIN 2,000 MG in SODIUM CHLORIDE 0.9% 500 ML IV SCH (06:00)
[2018-12-31] MEDS: LEVOTHYROXINE 175 MCG TABLET PO SCH (06:12)
[2018-12-31] MEDS: PANTOPRAZOLE 20MG TABLET PO SCH (06:12)
[2018-12-31 08:07] VITALS: BP 146/76
[2018-12-31] MEDS: GABAPENTIN 300 MG CAPSULE PO SCH ×3 (10:04→20:02)
[2018-12-31] MEDS: LISINOPRIL 20 MG TABLET PO SCH ×2 (10:04→19:56)
[2018-12-31] MEDS: DULOXETINE 30 MG CAPSULE.DR PO SCH (10:05)
[2018-12-31] MEDS: POTASSIUM CHLORIDE 20 MEQ TAB.ER.PRT PO SCH (10:05)
[2018-12-31] MEDS: FLUOXETINE 10 MG CAP PO SCH (10:06)
[2018-12-31] MEDS: FLORASTOR 250 MG CAPSULE PO SCH (10:06)
[2018-12-31] MEDS: SENNA/DOCUSATE TABLET PO SCH (10:06)
[2018-12-31] MEDS: ONDANSETRON ODT 4 MG PO PRN (10:06)
[2018-12-31] MEDS: ASPIRIN 81 MG TABLET EC PO SCH (10:06)
[2018-12-31] MEDS: CLOPIDOGREL 75 MG TABLET PO SCH (10:06)
[2018-12-31] MEDS: FUROSEMIDE 40 MG/4 ML IV SCH (10:07)
[2018-12-31 15:41] VITALS: BP 134/72
[2018-12-31 19:12] VITALS: BP 104/62
[2018-12-31] MEDS: DOCUSATE 100 MG CAPSULE PO PRN (20:25)
[2019-01-01] MEDS: ENOXAPARIN 40 MG/0.4 ML SQ SCH
[2019-01-01 00:46] VITALS: BP 107/65
[2019-01-01] MEDS: HYDROcodone/APAP 5/325 TABLET PO PRN ×3 (01:32→15:49)
[2019-01-01] MEDS: CEFTAZIDIME 1,000 MG in SODIUM CHLORIDE 0.9% 50 ML IV SCH ×2 (03:13→15:47)
[2019-01-01] MEDS: PANTOPRAZOLE 20MG TABLET PO SCH (05:04)
[2019-01-01] MEDS: LEVOTHYROXINE 175 MCG TABLET PO SCH (05:05)
[2019-01-01 07:32] VITALS: BP 140/75
[2019-01-01] MEDS: FUROSEMIDE 40 MG/4 ML IV SCH (07:43)
[2019-01-01] MEDS: SENNA/DOCUSATE TABLET PO SCH (07:45)
[2019-01-01] MEDS: DULOXETINE 30 MG CAPSULE.DR PO SCH (07:45)
[2019-01-01] MEDS: FLUOXETINE 10 MG CAP PO SCH (07:45)
[2019-01-01] MEDS: CLOPIDOGREL 75 MG TABLET PO SCH (07:45)
[2019-01-01] MEDS: ASPIRIN 81 MG TABLET EC PO SCH (07:45)
[2019-01-01] MEDS: LISINOPRIL 20 MG TABLET PO SCH ×2 (07:46→20:34)
[2019-01-01] MEDS: GABAPENTIN 300 MG CAPSULE PO SCH ×3 (07:46→20:36)
[2019-01-01] MEDS: FLORASTOR 250 MG CAPSULE PO SCH (07:46)
[2019-01-01] MEDS: POTASSIUM CHLORIDE 20 MEQ TAB.ER.PRT PO SCH (07:47)
[2019-01-01] MEDS: ONDANSETRON ODT 4 MG PO PRN ×2 (08:12→15:59)
[2019-01-01 12:26] VITALS: BP 119/70
[2019-01-01] MEDS: VANCOMYCIN 2,000 MG in SODIUM CHLORIDE 0.9% 500 ML IV SCH (17:58)
[2019-01-01 19:14] VITALS: BP 111/60
[2019-01-01] MEDS: DOCUSATE 100 MG CAPSULE PO PRN (20:35)
[2019-01-02] MEDS: HYDROcodone/APAP 5/325 TABLET PO PRN ×3 (00:37→21:51)
[2019-01-02] MEDS: ENOXAPARIN 40 MG/0.4 ML SQ SCH (00:37)
[2019-01-02 01:02] VITALS: BP 125/57
[2019-01-02] MEDS: CEFTAZIDIME 1,000 MG in SODIUM CHLORIDE 0.9% 50 ML IV SCH ×2 (04:00→15:42)
[2019-01-02] MEDS: LEVOTHYROXINE 175 MCG TABLET PO SCH (05:49)
[2019-01-02] MEDS: PANTOPRAZOLE 20MG TABLET PO SCH (05:49)
[2019-01-02 05:50] LABS: ANION GAP 2 mmol/L (5-15); CALCIUM 8.5 mg/dL (8.5-10.1); CHLORIDE 100 mmol/L (98-107)
[2019-01-02 08:46] VITALS: BP 156/71
[2019-01-02] MEDS: GABAPENTIN 300 MG CAPSULE PO SCH ×3 (08:49→21:51)
[2019-01-02] MEDS: CLOPIDOGREL 75 MG TABLET PO SCH (08:49)
[2019-01-02] MEDS: FLORASTOR 250 MG CAPSULE PO SCH (08:50)
[2019-01-02] MEDS: DULOXETINE 30 MG CAPSULE.DR PO SCH (08:50)
[2019-01-02] MEDS: POTASSIUM CHLORIDE 20 MEQ TAB.ER.PRT PO SCH (08:51)
[2019-01-02] MEDS: LISINOPRIL 20 MG TABLET PO SCH ×2 (08:51→21:50)
[2019-01-02] MEDS: SENNA/DOCUSATE TABLET PO SCH (08:51)
[2019-01-02] MEDS: FLUOXETINE 10 MG CAP PO SCH (08:51)
[2019-01-02] MEDS: ASPIRIN 81 MG TABLET EC PO SCH (08:51)
[2019-01-02] MEDS: FUROSEMIDE 40 MG TABLET PO SCH (08:57)
[2019-01-02] MEDS: ONDANSETRON ODT 4 MG PO PRN ×2 (08:57→16:52)
[2019-01-02] MEDS: DOCUSATE 100 MG CAPSULE PO PRN (10:23)
[2019-01-02 14:00] VITALS: BP 124/55
[2019-01-02] MEDS ORDERED: BISACODYL 10 MG SUPP PR PRN (16:00)
[2019-01-02] MEDS: POLYETHYLENE GLYCOL 17 GM PACKET PO PRN (16:52)
[2019-01-02 18:46] VITALS: BP 118/67
[2019-01-03] MEDS: ENOXAPARIN 40 MG/0.4 ML SQ SCH (00:33)
[2019-01-03 00:37] VITALS: BP 127/64
[2019-01-03] MEDS: CEFTAZIDIME 1,000 MG in SODIUM CHLORIDE 0.9% 50 ML IV SCH ×2 (03:32→15:27)
[2019-01-03] MEDS: HYDROcodone/APAP 5/325 TABLET PO PRN (03:36)
[2019-01-03] MEDS: LEVOTHYROXINE 175 MCG TABLET PO SCH (06:27)
[2019-01-03] MEDS: PANTOPRAZOLE 20MG TABLET PO SCH (06:27)
[2019-01-03 07:27] VITALS: BP 138/71
[2019-01-03] MEDS: DULOXETINE 30 MG CAPSULE.DR PO SCH (08:15)
[2019-01-03] MEDS: CLOPIDOGREL 75 MG TABLET PO SCH (08:16)
[2019-01-03] MEDS: FLORASTOR 250 MG CAPSULE PO SCH (08:16)
[2019-01-03] MEDS: POTASSIUM CHLORIDE 20 MEQ TAB.ER.PRT PO SCH (08:16)
[2019-01-03] MEDS: GABAPENTIN 300 MG CAPSULE PO SCH ×2 (08:16→15:46)
[2019-01-03] MEDS: FUROSEMIDE 40 MG TABLET PO SCH (08:16)
[2019-01-03] MEDS: SENNA/DOCUSATE TABLET PO SCH (08:16)
[2019-01-03] MEDS: FLUOXETINE 10 MG CAP PO SCH (08:16)
[2019-01-03] MEDS: ASPIRIN 81 MG TABLET EC PO SCH (08:16)
[2019-01-03] MEDS: DOCUSATE 100 MG CAPSULE PO PRN (08:16)
[2019-01-03] MEDS: LISINOPRIL 20 MG TABLET PO SCH (08:17)
[2019-01-03] MEDS: ONDANSETRON ODT 4 MG PO PRN (10:27)
[2019-01-03] MEDS: POLYETHYLENE GLYCOL 17 GM PACKET PO PRN (10:27)
[2019-01-03 12:42] VITALS: BP 131/68
[2019-01-03] MEDS ORDERED: PINK LADY ENEMA 490 ML BOTTLE PR ONE (15:00)
[2019-01-03] MEDS ORDERED: VANCOMYCIN 2,000 MG in SODIUM CHLORIDE 0.9% 500 ML IV SCH (18:00)
== END 2019-01-03 18:50 | DRG 602 ==
LOC: ED 18:04 → EDIP 18:37 → 3N 19:49
PROVIDERS: ADMIT Family Medicine; ATTEND Internal Medicine
PROC: 0T9B70Z Drainage of Bladder with Drainage Device, Via Natural or Artificial Opening (ICD-10-PCS; principal; 2018-12-23)
DX: L03.115 Cellulitis of right lower limb (principal); G93.41 Metabolic encephalopathy; I50.31 Acute diastolic (congestive) heart failure; J96.10 Chronic respiratory failure, unspecified whether with hypoxia or hypercapnia; F33.9 Major depressive disorder, recurrent, unspecified; L97.919 Non-pressure chronic ulcer of unspecified part of right lower leg with unspecified severity; L97.929 Non-pressure chronic ulcer of unspecified part of left lower leg with unspecified severity; E03.9 Hypothyroidism, unspecified; E66.01 Morbid (severe) obesity due to excess calories; Z68.31 Body mass index [BMI] 31.0-31.9, adult; E87.6 Hypokalemia; G62.9 Polyneuropathy, unspecified; G89.4 Chronic pain syndrome; I11.0 Hypertensive heart disease with heart failure; I35.0 Nonrheumatic aortic (valve) stenosis; J44.9 Chronic obstructive pulmonary disease, unspecified; M16.10 Unilateral primary osteoarthritis, unspecified hip; Z96.642 Presence of left artificial hip joint; Z96.619 Presence of unspecified artificial shoulder joint; I87.2 Venous insufficiency (chronic) (peripheral); Z86.14 Personal history of Methicillin resistant Staphylococcus aureus infection; Z87.891 Personal history of nicotine dependence; Z90.710 Acquired absence of both cervix and uterus; Z90.49 Acquired absence of other specified parts of digestive tract; Z95.2 Presence of prosthetic heart valve; Z99.81 Dependence on supplemental oxygen
CPT/HCPCS: 36415; 36600; 71045; 80048; 80053; 80202; 81003; 82565; 82803; 83605; 83735; 83880; 84100; 84145; 84439; 84443; 85025; 87040; 87070; 87077; 87186; 87205; 93005; 93308; 93321; 93325; 99285; G0378; J0295; J0713; J1170; J1650; J1885; J1940; J3370; Q0162; 29581-50; J0360; J7040

== ENCOUNTER 2019-01-25 11:41 | Inpatient (IN) | payer MEDICARE ==
[~2019-01-25] VITALS: Ht 172.7 cm; Wt 94.8 kg
[~2019-01-25 11:41] MED LIST changes: +CEFT1PIG IV; +FURO-92 PO; +HYDR-3237 PO; +HYDR-3343 PO; +LACT1TAB13 PO; +LIDO700A20 TD; +LISI-170 PO; +ONDA4TAB13 PO; +POLY17PO5 PO; +TRAM50TA2 PO; +VANC2PIG IV
--- NOTE | 2019-01-25 11:58 | NUR ---
PT EXAM PER DR RODRIGUEZ, LABS DRAWN. EKG AT BS.
[2019-01-25] MEDS ORDERED: HYDROcodone/APAP 5/325 TABLET PO ONE (12:00)
[2019-01-25] MEDS ORDERED: SODIUM CHLORIDE FLUSH 10ML SYR IVF ONE (12:00)
[2019-01-25] MEDS ORDERED: NEOSPORIN OINT. PKT 1 PACKET ONE (12:04)
[2019-01-25 12:12] LABS: BASOPHILS # (AUTO) 0.01 x10^3/uL (0-0.1); BASOPHILS % (AUTO) 0 % (0-1); EOSINOPHILS # (AUTO) 0.05 x10^3/uL (0-0.4); EOSINOPHILS % (AUTO) 1 % (1-7); LYMPHOCYTES % (AUTO) 6 % (22-44); MD NO; MEAN CORPUSCULAR HEMOGLOBIN 26.9 pg (27.0-34.8); MEAN CORPUSCULAR HGB CONC 32.4 g/dL (32.4-35.8); MEAN CORPUSCULAR VOLUME 83.1 fL (80-100); MEAN PLATELET VOLUME 7.2 fL (7.4-10.4); MONOCYTES % (AUTO) 6 % (2-9); NEUTROPHILS # (AUTO) 6.91 x10^3/uL (1.8-6.8); NEUTROPHILS % (AUTO) 87 % (42-75); PLATELET COUNT 426 x10^3/uL (130-400); RED BLOOD COUNT 4.02 x10^6/uL (3.82-5.3); RED CELL DISTRIBUTION WIDTH 17.3 % (9.6-15.2)
[2019-01-25] MEDS ORDERED: HYDROcodone/APAP 5/325 TABLET ONE (12:18)
--- NOTE | 2019-01-25 12:21 | NUR ---
LT KNEE WOUND CLEANSED & DRESSED PER DAVIN MURRIETA TECH.
[2019-01-25 12:22] LABS: ALANINE AMINOTRANSFERASE 24 U/L (12-78); ALBUMIN 2.8 g/dL (3.4-5.0); ANION GAP 9 mmol/L (5-15); CALCIUM 8.9 mg/dL (8.5-10.1); CHLORIDE 102 mmol/L (98-107)
--- NOTE | 2019-01-25 12:25 | NUR ---
NORCO GIVEN PER EMAR
[2019-01-25 12:27] LABS: ALKALINE PHOSPHATASE 101 U/L (45-117); BILIRUBIN,TOTAL 0.4 mg/dL (0.2-1.0); CREATINE KINASE, TOTAL 463 U/L (26-192); TOTAL PROTEIN 7.1 g/dL (6.4-8.2)
--- NOTE | 2019-01-25 12:56 | NUR ---
TO XR PER EROS
[2019-01-25] MEDS ORDERED: LEVO175T5 PO (13:06)
[2019-01-25] MEDS ORDERED: DULO60CA56 PO (13:06)
[2019-01-25] MEDS ORDERED: OMEP40CA42 PO (13:06)
[2019-01-25] MEDS ORDERED: LISI40TA PO (13:06)
[2019-01-25] MEDS ORDERED: CEFAZOLIN PMX 1GM/50ML 50 ML IV ONE (13:30)
[2019-01-25] MEDS ORDERED: SODIUM CHLORIDE 0.9% 1,000ML IVBOLUS ONE (13:30)
--- NOTE | 2019-01-25 13:45 | NUR ---
QUICK CATH URINE SPECIMEN OBTAINED: CLOUDY YELLOW. WILL BE WALKED TO LAB.
--- NOTE | 2019-01-25 13:54 | NUR ---
CALLED UNIT; RECEIVING RN CURRENTLY BUSY, SHE WILL CALL BACK
--- NOTE | 2019-01-25 13:58 | NUR ---
PT REPORT TO MACK JAFFE FOR ROOM 358
[2019-01-25] MEDS ORDERED: CEFAZOLIN PMX 1GM/50ML 50 ML ONE ×2 (14:06)
--- NOTE | 2019-01-25 14:09 | NUR ---
DR MADRIGAL BS
[2019-01-25 14:14] LABS: CULTURE INDICATED? YES; MICROSCOPIC INDICATED
--- NOTE | 2019-01-25 14:17 | NUR ---
NS AND ANCEF HUNG PER EMAR ORDER
[2019-01-25] MEDS ORDERED: DOCUSATE 100 MG CAPSULE PO PRN (14:30)
[2019-01-25] MEDS ORDERED: ONDANSETRON ODT 4 MG PO PRN (14:30)
[2019-01-25] MEDS ORDERED: hydrALAzine 20 MG/ML, 1ML IVPush PRN (14:30)
[2019-01-25] MEDS ORDERED: TEMAZEPAM 15 MG CAPSULE PO PRN (14:30)
[2019-01-25 14:53] VITALS: BP 99/57
[2019-01-25] MEDS: GABAPENTIN 300 MG CAPSULE PO SCH ×2 (15:39→21:47)
[2019-01-25] MEDS: ENOXAPARIN 30 MG/0.3 ML SQ SCH (15:40)
[2019-01-25] MEDS: LACTOBACILLUS CHEW TABLET PO SCH ×2 (15:40→21:47)
[2019-01-25] MEDS: LIDODERM 5% PATCH TD SCH (15:40)
[2019-01-25] MEDS ORDERED: ALBUTEROL SULFATE 2.5 MG/3 ML NPPB SCH (16:00)
[2019-01-25] MEDS: CEFTRIAXONE PMX 2GM/50ML 50 ML IV SCH (17:20)
[2019-01-25] MEDS: FUROSEMIDE 40 MG/4 ML IV SCH (17:20)
[2019-01-25 19:14] VITALS: BP 96/60
[2019-01-25] MEDS: BUDESONIDE 0.5 MG/2 ML INHA INH SCH (21:00)
[2019-01-25] MEDS: ALBUTEROL SULFATE 2.5 MG/3 ML NPPB SCH (21:00)
[2019-01-26 00:22] VITALS: BP 100/56
[2019-01-26] MEDS: ENOXAPARIN 30 MG/0.3 ML SQ SCH (02:22)
[2019-01-26] MEDS: ACETAMINOPHEN 325 MG TABLET PO PRN ×3 (02:23→19:40)
[2019-01-26] MEDS: ALBUTEROL SULFATE 2.5 MG/3 ML NPPB SCH ×4 (02:36→20:50)
[2019-01-26 06:08] LABS: BASOPHILS % (AUTO) 0 % (0-1); EOSINOPHILS # (AUTO) 0.19 x10^3/uL (0-0.4); EOSINOPHILS % (AUTO) 3 % (1-7); LYMPHOCYTES # (AUTO) 0.45 x10^3/uL (1-3.4); LYMPHOCYTES % (AUTO) 6 % (22-44); MD NO; MEAN CORPUSCULAR HEMOGLOBIN 26.9 pg (27.0-34.8); MEAN CORPUSCULAR VOLUME 84.1 fL (80-100); MEAN PLATELET VOLUME 7.6 fL (7.4-10.4); MONOCYTES # (AUTO) 0.49 x10^3/uL (0.2-0.8); MONOCYTES % (AUTO) 6 % (2-9); NEUTROPHILS # (AUTO) 6.66 x10^3/uL (1.8-6.8); NEUTROPHILS % (AUTO) 85 % (42-75); PLATELET COUNT 380 x10^3/uL (130-400); RED BLOOD COUNT 3.52 x10^6/uL (3.82-5.3)
[2019-01-26 06:19] LABS: ALANINE AMINOTRANSFERASE 18 U/L (12-78); ALBUMIN 2.4 g/dL (3.4-5.0); ANION GAP 8 mmol/L (5-15); CALCIUM 8.2 mg/dL (8.5-10.1); CHLORIDE 105 mmol/L (98-107); CREATININE 1.72 mg/dL (0.55-1.02)
[2019-01-26 06:21] LABS: ALKALINE PHOSPHATASE 84 U/L (45-117); BILIRUBIN,TOTAL 0.3 mg/dL (0.2-1.0); TOTAL PROTEIN 6.3 g/dL (6.4-8.2)
[2019-01-26] MEDS: FUROSEMIDE 40 MG/4 ML IV SCH (07:30)
[2019-01-26 07:41] VITALS: BP 93/57
[2019-01-26] MEDS: LACTOBACILLUS CHEW TABLET PO SCH ×3 (07:44→21:20)
[2019-01-26] MEDS: LEVOTHYROXINE 175 MCG TABLET PO SCH (07:45)
[2019-01-26] MEDS: CLOPIDOGREL 75 MG TABLET PO SCH (07:45)
[2019-01-26] MEDS: GABAPENTIN 300 MG CAPSULE PO SCH ×3 (07:45→21:20)
[2019-01-26] MEDS: OMEPRAZOLE 20 MG CAPSULE.DR PO SCH (07:45)
[2019-01-26] MEDS: DULOXETINE 30 MG CAPSULE.DR PO SCH (07:46)
[2019-01-26] MEDS ORDERED: POTASSIUM CHLORIDE 20 MEQ TAB.ER.PRT PO SCH (08:00)
[2019-01-26] MEDS ORDERED: PHARMACY MAY ADJ FOR RENAL FX MC PRN (09:00)
[2019-01-26] MEDS: BUDESONIDE 0.5 MG/2 ML INHA INH SCH ×2 (09:30→20:50)
[2019-01-26] MEDS: SODIUM CHLORIDE 0.45% 1,000 ML IV SCH ×2 (10:30→23:58)
[2019-01-26 12:44] VITALS: BP 97/62
[2019-01-26] MEDS: CEFTRIAXONE PMX 2GM/50ML 50 ML IV SCH (14:40)
[2019-01-26] MEDS: LIDODERM 5% PATCH TD SCH (14:40)
[2019-01-26 15:07] LABS: ANION GAP 7 mmol/L (5-15); CALCIUM 8.6 mg/dL (8.5-10.1); CHLORIDE 105 mmol/L (98-107); CREATININE 1.45 mg/dL (0.55-1.02)
[2019-01-26] MEDS ORDERED: FUROSEMIDE 40 MG/4 ML IV SCH (17:00)
[2019-01-26 19:40] VITALS: BP 118/58
[2019-01-27] MEDS ORDERED: ENOXAPARIN 30 MG/0.3 ML SQ SCH (02:00)
[2019-01-27 02:13] VITALS: BP 111/60
[2019-01-27] MEDS: ALBUTEROL SULFATE 2.5 MG/3 ML NPPB SCH ×4 (02:40→20:07)
[2019-01-27 06:03] LABS: BASOPHILS % (AUTO) 0 % (0-1); EOSINOPHILS # (AUTO) 0.28 x10^3/uL (0-0.4); EOSINOPHILS % (AUTO) 4 % (1-7); LYMPHOCYTES % (AUTO) 6 % (22-44); MD NO; MEAN CORPUSCULAR HEMOGLOBIN 27.5 pg (27.0-34.8); MEAN CORPUSCULAR VOLUME 85.8 fL (80-100); MEAN PLATELET VOLUME 7.5 fL (7.4-10.4); MONOCYTES # (AUTO) 0.43 x10^3/uL (0.2-0.8); MONOCYTES % (AUTO) 6 % (2-9); NEUTROPHILS # (AUTO) 6.13 x10^3/uL (1.8-6.8); NEUTROPHILS % (AUTO) 85 % (42-75); PLATELET COUNT 311 x10^3/uL (130-400); RED CELL DISTRIBUTION WIDTH 18.1 % (9.6-15.2)
[2019-01-27 06:15] LABS: ANION GAP 7 mmol/L (5-15); CALCIUM 8.4 mg/dL (8.5-10.1); CHLORIDE 107 mmol/L (98-107)
[2019-01-27 06:18] LABS: CREATININE 1.09 mg/dL (0.55-1.02)
[2019-01-27] MEDS: DULOXETINE 30 MG CAPSULE.DR PO SCH (08:41)
[2019-01-27] MEDS: OMEPRAZOLE 20 MG CAPSULE.DR PO SCH (08:41)
[2019-01-27] MEDS: LACTOBACILLUS CHEW TABLET PO SCH ×3 (08:41→20:32)
[2019-01-27 08:42] VITALS: BP 97/59
[2019-01-27] MEDS: GABAPENTIN 300 MG CAPSULE PO SCH ×3 (08:42→20:32)
[2019-01-27] MEDS: LEVOTHYROXINE 175 MCG TABLET PO SCH (08:42)
[2019-01-27] MEDS: CLOPIDOGREL 75 MG TABLET PO SCH ×2 (08:42→08:52)
[2019-01-27] MEDS: SODIUM CHLORIDE 0.45% 1,000 ML IV SCH ×2 (08:46→22:28)
[2019-01-27] MEDS: BUDESONIDE 0.5 MG/2 ML INHA INH SCH ×2 (08:56→20:07)
[2019-01-27 09:55] VITALS: BP 137/79
[2019-01-27] MEDS ORDERED: FOSFOMYCIN 3 GM PACKET PO SCH (12:00)
[2019-01-27] MEDS: ERTAPENEM 0.5 GM in SODIUM CHLORIDE 0.9% 50 ML IV SCH (12:40)
[2019-01-27 13:05] LABS: CREATININE,URINE RANDOM 62.5 mg/dL
[2019-01-27 14:48] VITALS: BP 101/70
[2019-01-27] MEDS: LIDODERM 5% PATCH TD SCH (15:59)
[2019-01-27] MEDS ORDERED: BISACODYL 10 MG SUPP PR PRN (17:00)
[2019-01-27] MEDS ORDERED: MAGNESIUM HYDROXIDE 8%, 30ML UDC PO ONE (18:00)
[2019-01-27 20:40] VITALS: BP 106/51
[2019-01-28 02:41] VITALS: BP 107/67
[2019-01-28] MEDS: ALBUTEROL SULFATE 2.5 MG/3 ML NPPB SCH ×4 (02:45→20:28)
[2019-01-28 06:02] LABS: BASOPHILS % (AUTO) 0 % (0-1); EOSINOPHILS # (AUTO) 0.29 x10^3/uL (0-0.4); EOSINOPHILS % (AUTO) 4 % (1-7); LYMPHOCYTES # (AUTO) 0.44 x10^3/uL (1-3.4); LYMPHOCYTES % (AUTO) 7 % (22-44); MD NO; MEAN CORPUSCULAR HEMOGLOBIN 27.6 pg (27.0-34.8); MEAN CORPUSCULAR HGB CONC 32.7 g/dL (32.4-35.8); MEAN CORPUSCULAR VOLUME 84.3 fL (80-100); MEAN PLATELET VOLUME 7.3 fL (7.4-10.4); MONOCYTES # (AUTO) 0.38 x10^3/uL (0.2-0.8); MONOCYTES % (AUTO) 6 % (2-9); NEUTROPHILS # (AUTO) 5.66 x10^3/uL (1.8-6.8); NEUTROPHILS % (AUTO) 84 % (42-75); PLATELET COUNT 352 x10^3/uL (130-400); RED CELL DISTRIBUTION WIDTH 17.8 % (9.6-15.2)
[2019-01-28 06:12] LABS: ANION GAP 9 mmol/L (5-15); CALCIUM 8.1 mg/dL (8.5-10.1); CHLORIDE 106 mmol/L (98-107)
[2019-01-28 06:14] LABS: CREATININE 0.79 mg/dL (0.55-1.02)
[2019-01-28 07:13] VITALS: BP 110/67
[2019-01-28] MEDS: LEVOTHYROXINE 175 MCG TABLET PO SCH (08:32)
[2019-01-28] MEDS: GABAPENTIN 300 MG CAPSULE PO SCH ×3 (08:32→21:44)
[2019-01-28] MEDS: LACTOBACILLUS CHEW TABLET PO SCH ×3 (08:32→21:44)
[2019-01-28] MEDS: OMEPRAZOLE 20 MG CAPSULE.DR PO SCH (08:33)
[2019-01-28] MEDS: DULOXETINE 30 MG CAPSULE.DR PO SCH (08:33)
[2019-01-28] MEDS: CLOPIDOGREL 75 MG TABLET PO SCH (08:33)
[2019-01-28] MEDS: BUDESONIDE 0.5 MG/2 ML INHA INH SCH ×2 (09:14→20:28)
[2019-01-28 12:11] VITALS: BP 116/67
[2019-01-28] MEDS: ERTAPENEM 0.5 GM in SODIUM CHLORIDE 0.9% 50 ML IV SCH (12:43)
[2019-01-28] MEDS: LIDODERM 5% PATCH TD SCH (15:23)
[2019-01-28 21:58] VITALS: BP 97/62
[2019-01-29] MEDS: ALBUTEROL SULFATE 2.5 MG/3 ML NPPB SCH ×3 (02:08→15:30)
[2019-01-29 02:59] VITALS: BP 110/68
[2019-01-29 06:14] LABS: ANION GAP 7 mmol/L (5-15); CALCIUM 8.4 mg/dL (8.5-10.1); CHLORIDE 106 mmol/L (98-107); CREATININE 0.48 mg/dL (0.55-1.02)
[2019-01-29 07:54] VITALS: BP 129/72
[2019-01-29] MEDS ORDERED: FOSFOMYCIN 3 GM PACKET PO ONE (08:00)
[2019-01-29] MEDS ORDERED: ERTAPENEM 1 GM in SODIUM CHLORIDE 0.9% 50 ML IV SCH (08:00)
[2019-01-29] MEDS: OMEPRAZOLE 20 MG CAPSULE.DR PO SCH (08:28)
[2019-01-29] MEDS: CLOPIDOGREL 75 MG TABLET PO SCH (08:29)
[2019-01-29] MEDS: GABAPENTIN 300 MG CAPSULE PO SCH (08:29)
[2019-01-29] MEDS: LACTOBACILLUS CHEW TABLET PO SCH (08:29)
[2019-01-29] MEDS: DULOXETINE 30 MG CAPSULE.DR PO SCH (08:29)
[2019-01-29] MEDS: LEVOTHYROXINE 175 MCG TABLET PO SCH (08:29)
[2019-01-29] MEDS: BUDESONIDE 0.5 MG/2 ML INHA INH SCH (09:56)
[2019-01-29] MEDS ORDERED: POTA20PA25 PO (12:29)
[2019-01-29] MEDS ORDERED: LISI5TAB7 PO (12:29)
[2019-01-29 13:12] VITALS: BP 117/67
[2019-01-29] MEDS: LIDODERM 5% PATCH TD SCH (14:43)
[2019-01-30] MEDS ORDERED: LISINOPRIL 5 MG TABLET PO SCH (09:00)
== END 2019-01-29 17:47 | disposition hospice, home (50) | DRG 682 ==
LOC: ED 13:38 → 3N 13:40 → SUATTDRO 13:55
PROVIDERS: ADMIT Internal Medicine; ATTEND Hospitalist
PROC: 0T9B70Z Drainage of Bladder with Drainage Device, Via Natural or Artificial Opening (ICD-10-PCS; principal; 2019-01-25)
DX: N17.0 Acute kidney failure with tubular necrosis (principal); J96.21 Acute and chronic respiratory failure with hypoxia; I13.0 Hypertensive heart and chronic kidney disease with heart failure and stage 1 through stage 4 chronic kidney disease, or unspecified chronic kidney disease; N39.0 Urinary tract infection, site not specified; L03.115 Cellulitis of right lower limb; Z16.12 Extended spectrum beta lactamase (ESBL) resistance; I50.32 Chronic diastolic (congestive) heart failure; D64.9 Anemia, unspecified; E03.9 Hypothyroidism, unspecified; E66.01 Morbid (severe) obesity due to excess calories; S80.211A Abrasion, right knee, initial encounter; S80.212A Abrasion, left knee, initial encounter; E86.0 Dehydration; E87.5 Hyperkalemia; F32.9 Major depressive disorder, single episode, unspecified; G89.29 Other chronic pain; J44.9 Chronic obstructive pulmonary disease, unspecified; M17.12 Unilateral primary osteoarthritis, left knee; I87.2 Venous insufficiency (chronic) (peripheral); Z66 Do not resuscitate; N18.9 Chronic kidney disease, unspecified; M25.462 Effusion, left knee; W01.0XXA Fall on same level from slipping, tripping and stumbling without subsequent striking against object, initial encounter; Z96.642 Presence of left artificial hip joint; Z99.81 Dependence on supplemental oxygen; Z99.3 Dependence on wheelchair; Z95.2 Presence of prosthetic heart valve; Z90.710 Acquired absence of both cervix and uterus; Z90.49 Acquired absence of other specified parts of digestive tract; Z87.891 Personal history of nicotine dependence; Z86.14 Personal history of Methicillin resistant Staphylococcus aureus infection; Y93.89 Activity, other specified; Y92.89 Other specified places as the place of occurrence of the external cause; Y99.8 Other external cause status; Z68.31 Body mass index [BMI] 31.0-31.9, adult; S81.019A Laceration without foreign body, unspecified knee, initial encounter
CPT/HCPCS: 36415; 71045; 80048; 80053; 81001; 82550; 82570; 83605; 83735; 83880; 84100; 84300; 85025; 87040; 87077; 87086; 87186; 93005; 94640; 96361; 96374; G0378; J0690; J0696; J1335; J1650; J1940; J7613; J7626; J7030

== ENCOUNTER 2019-05-26 12:34 | Inpatient (IN) | payer MEDICARE ==
[~2019-05-26] VITALS: Ht 172.7 cm; Wt 88.2 kg
[~2019-05-26 12:34] MED LIST changes: +ACET325T26 PO; +ASPI-650 PO; +ATOR-2 PO; +DULO60CA56 PO; +FLUO10CA14 PO; -FLUO10CA7 PO; +FURO40TA6 PO; +GABA300C10 PO; +GABA600T7 PO; +HEPA50002 SQ; +ISOS30TA8 PO; +LEVO175T5 PO; +LEVO200T PO; +LISI40TA PO; +LISI5TAB7 PO; +OMEP40CA42 PO; +POTA20PA25 PO
--- NOTE | 2019-05-26 13:13 | NUR ---
[employer] CONTACTED
[2019-05-26 14:43] LABS: BASOPHILS # (AUTO) 0.04 x10^3/uL (0-0.1); BASOPHILS % (AUTO) 1 % (0-1); EOSINOPHILS # (AUTO) 0.17 x10^3/uL (0-0.4); EOSINOPHILS % (AUTO) 2 % (1-7); LYMPHOCYTES # (AUTO) 0.77 x10^3/uL (1-3.4); LYMPHOCYTES % (AUTO) 9 % (22-44); MD NO; MEAN CORPUSCULAR HEMOGLOBIN 26.7 pg (27.0-34.8); MEAN CORPUSCULAR VOLUME 80.8 fL (80-100); MEAN PLATELET VOLUME 6.8 fL (7.4-10.4); MONOCYTES # (AUTO) 0.32 x10^3/uL (0.2-0.8); MONOCYTES % (AUTO) 4 % (2-9); NEUTROPHILS # (AUTO) 7.22 x10^3/uL (1.8-6.8); NEUTROPHILS % (AUTO) 85 % (42-75); PLATELET COUNT 326 x10^3/uL (130-400); RED BLOOD COUNT 4.39 x10^6/uL (3.82-5.3); RED CELL DISTRIBUTION WIDTH 18.1 % (9.6-15.2)
[2019-05-26 14:54] LABS: ALANINE AMINOTRANSFERASE 13 U/L (12-78); ALBUMIN 3.3 g/dL (3.4-5.0); ANION GAP 5 mmol/L (5-15); CHLORIDE 101 mmol/L (98-107)
[2019-05-26 14:57] LABS: ALKALINE PHOSPHATASE 117 U/L (45-117); BILIRUBIN,TOTAL 0.4 mg/dL (0.2-1.0); TOTAL PROTEIN 7.7 g/dL (6.4-8.2)
--- NOTE | 2019-05-26 14:59 | NUR ---
PT RESTING IN BED. DENIES ANY NEEDS OR CONCERNS AT THIS TIME. CALL LIGHT IN REACH. PT VERBALIZES UNDERSTANDING FOR ITS USE.
--- NOTE | 2019-05-26 15:19 | NUR ---
REPORT RECEIVED FROM BARAK GIRON.
--- NOTE | 2019-05-26 15:23 | NUR ---
PT STATES SHE DOES NOT HAVE A MEDICATION LIST AND IS UNAWARE OF WHICH MEDS SHE IS CURRENTLY TAKING.
--- NOTE | 2019-05-26 16:45 | NUR ---
CALL TO [employer] FOR CLARIFICATION OF PLAN. STATES THAT SHE LEFT A MESSAGE FOR PALLATIVE CARE REGARDING A CONSULT. PALLATIVE CARE HAS NOT BEEN DOWN TO SEE THE PT AT THIS TIME. WILL UPDATE .
--- NOTE | 2019-05-26 16:48 | NUR ---
VS STABLE. PT IS RESTING ON [employer] W/ CALL LIGHT IN REACH. DENIES FURTHER NEEDS AT THIS TIME.
--- NOTE | 2019-05-26 18:41 | NUR ---
BREAK RN: PT RESTING IN ROOM. VS STABLE. CALL LIGHT IN PLACE. WILL CONTINUE TO MONITOR WHILE PRIMARY RN IS ON BREAK.
[2019-05-26] MEDS ORDERED: SODIUM CHLORIDE FLUSH 10ML SYR IVF PRN (19:00)
--- NOTE | 2019-05-26 19:31 | NUR ---
REPORT GIVEN TO JOHN GIRON. PT IS READY FOR TRANSPORT.
--- NOTE | 2019-05-26 19:32 | NUR ---
ADMITTING PROVIDER AT BEDSIDE.
[2019-05-26] MEDS: HEPARIN 5,000 UNITS/ML, 1ML SQ SCH (20:00)
[2019-05-26] MEDS ORDERED: BISACODYL 10 MG SUPP PR PRN (20:00)
[2019-05-26] MEDS ORDERED: ONDANSETRON ODT 4 MG PO PRN (20:00)
[2019-05-26] MEDS ORDERED: ACETAMINOPHEN 325 MG TABLET PO PRN (20:00)
[2019-05-26] MEDS ORDERED: POLYETHYLENE GLYCOL 17 GM PACKET PO PRN (20:00)
[2019-05-26 20:05] VITALS: BP 116/59
[2019-05-26 20:19] VITALS: BP 116/59
[2019-05-26] MEDS: GABAPENTIN 300 MG CAPSULE PO SCH (21:00)
[2019-05-26] MEDS: ATORVASTATIN 80 MG TABLET PO SCH (21:00)
[2019-05-26] MEDS: SODIUM CHLORIDE FLUSH 10ML SYR IVF SCH (21:00)
[2019-05-26 23:27] LABS: CULTURE INDICATED? YES; MICROSCOPIC INDICATED
[2019-05-27 00:31] VITALS: BP 121/57
[2019-05-27] MEDS: HEPARIN 5,000 UNITS/ML, 1ML SQ SCH ×3 (04:00→20:27)
[2019-05-27] MEDS: ASPIRIN 325 MG TABLET EC PO SCH (05:36)
[2019-05-27] MEDS: LEVOTHYROXINE 200 MCG TABLET PO SCH (05:36)
[2019-05-27 06:27] VITALS: BP 108/56
[2019-05-27] MEDS: SODIUM CHLORIDE FLUSH 10ML SYR IVF SCH ×2 (08:24→20:28)
[2019-05-27] MEDS: DULOXETINE 30 MG CAPSULE.DR PO SCH (08:24)
[2019-05-27] MEDS: LISINOPRIL 5 MG TABLET PO SCH (08:24)
[2019-05-27] MEDS: GABAPENTIN 300 MG CAPSULE PO SCH ×3 (08:24→20:28)
[2019-05-27] MEDS: FUROSEMIDE 40 MG TABLET PO SCH (08:25)
[2019-05-27] MEDS: SENNA/DOCUSATE TABLET PO SCH (08:25)
[2019-05-27 13:23] VITALS: BP 105/62
[2019-05-27 18:32] VITALS: BP 114/65
[2019-05-27] MEDS: ATORVASTATIN 80 MG TABLET PO SCH (20:27)
[2019-05-28 00:14] VITALS: BP 98/60
[2019-05-28] MEDS: ASPIRIN 325 MG TABLET EC PO SCH (04:56)
[2019-05-28] MEDS: LEVOTHYROXINE 200 MCG TABLET PO SCH (04:56)
[2019-05-28] MEDS: HEPARIN 5,000 UNITS/ML, 1ML SQ SCH (04:56)
[2019-05-28 07:10] VITALS: BP 110/65
[2019-05-28] MEDS: DULOXETINE 30 MG CAPSULE.DR PO SCH (08:54)
[2019-05-28] MEDS: FUROSEMIDE 40 MG TABLET PO SCH (08:54)
[2019-05-28] MEDS: LISINOPRIL 5 MG TABLET PO SCH (08:55)
[2019-05-28] MEDS: SENNA/DOCUSATE TABLET PO SCH (08:55)
[2019-05-28] MEDS: GABAPENTIN 300 MG CAPSULE PO SCH ×3 (08:55→20:40)
[2019-05-28] MEDS: SODIUM CHLORIDE FLUSH 10ML SYR IVF SCH ×2 (09:00→20:40)
[2019-05-28] MEDS: ENOXAPARIN 40 MG/0.4 ML SQ SCH (10:52)
[2019-05-28 12:44] VITALS: BP 108/61
[2019-05-28 18:45] VITALS: BP 124/64
[2019-05-28] MEDS: ATORVASTATIN 80 MG TABLET PO SCH (20:40)
[2019-05-29 01:26] VITALS: BP 99/63
[2019-05-29] MEDS: LEVOTHYROXINE 200 MCG TABLET PO SCH (06:09)
[2019-05-29] MEDS: ASPIRIN 325 MG TABLET EC PO SCH (06:09)
[2019-05-29 06:13] VITALS: BP 109/65
[2019-05-29] MEDS: SENNA/DOCUSATE TABLET PO SCH (09:00)
[2019-05-29] MEDS: SODIUM CHLORIDE FLUSH 10ML SYR IVF SCH ×2 (09:00→19:47)
[2019-05-29] MEDS: LISINOPRIL 5 MG TABLET PO SCH (09:04)
[2019-05-29] MEDS: DULOXETINE 30 MG CAPSULE.DR PO SCH (09:04)
[2019-05-29] MEDS: FUROSEMIDE 40 MG TABLET PO SCH (09:04)
[2019-05-29] MEDS: GABAPENTIN 300 MG CAPSULE PO SCH ×3 (09:04→19:46)
[2019-05-29] MEDS: ENOXAPARIN 40 MG/0.4 ML SQ SCH (09:05)
[2019-05-29 12:30] VITALS: BP 127/66
[2019-05-29] MEDS: ERTAPENEM 1 GM in SODIUM CHLORIDE 0.9% 50 ML IV SCH (13:37)
[2019-05-29] MEDS: ATORVASTATIN 80 MG TABLET PO SCH (19:46)
[2019-05-29 21:17] VITALS: BP 117/54
[2019-05-30 01:37] VITALS: BP 127/68
[2019-05-30] MEDS: LEVOTHYROXINE 200 MCG TABLET PO SCH (05:11)
[2019-05-30] MEDS: ASPIRIN 325 MG TABLET EC PO SCH (05:11)
[2019-05-30 06:13] LABS: BASOPHILS # (AUTO) 0.02 x10^3/uL (0-0.1); BASOPHILS % (AUTO) 0 % (0-1); EOSINOPHILS # (AUTO) 0.33 x10^3/uL (0-0.4); EOSINOPHILS % (AUTO) 5 % (1-7); LYMPHOCYTES # (AUTO) 1.16 x10^3/uL (1-3.4); LYMPHOCYTES % (AUTO) 17 % (22-44); MD NO; MEAN CORPUSCULAR HEMOGLOBIN 26.9 pg (27.0-34.8); MEAN CORPUSCULAR VOLUME 81.4 fL (80-100); MEAN PLATELET VOLUME 6.5 fL (7.4-10.4); MONOCYTES # (AUTO) 0.41 x10^3/uL (0.2-0.8); MONOCYTES % (AUTO) 6 % (2-9); NEUTROPHILS % (AUTO) 72 % (42-75); PLATELET COUNT 334 x10^3/uL (130-400); RED CELL DISTRIBUTION WIDTH 18.3 % (9.6-15.2)
[2019-05-30 06:14] LABS: ALBUMIN 2.7 g/dL (3.4-5.0); ANION GAP 6 mmol/L (5-15); CALCIUM 8.8 mg/dL (8.5-10.1); CHLORIDE 100 mmol/L (98-107)
[2019-05-30 06:22] LABS: ALANINE AMINOTRANSFERASE 11 U/L (12-78); ALKALINE PHOSPHATASE 101 U/L (45-117); BILIRUBIN,TOTAL 0.4 mg/dL (0.2-1.0); CREATININE 0.74 mg/dL (0.55-1.02); TOTAL PROTEIN 6.7 g/dL (6.4-8.2)
[2019-05-30 07:07] VITALS: BP 112/70
[2019-05-30] MEDS: LISINOPRIL 5 MG TABLET PO SCH (08:33)
[2019-05-30] MEDS: GABAPENTIN 300 MG CAPSULE PO SCH ×3 (08:33→20:32)
[2019-05-30] MEDS: SENNA/DOCUSATE TABLET PO SCH (08:33)
[2019-05-30] MEDS: FUROSEMIDE 40 MG TABLET PO SCH (08:33)
[2019-05-30] MEDS: ENOXAPARIN 40 MG/0.4 ML SQ SCH (08:34)
[2019-05-30] MEDS: DULOXETINE 30 MG CAPSULE.DR PO SCH (08:34)
[2019-05-30] MEDS: SODIUM CHLORIDE FLUSH 10ML SYR IVF SCH ×2 (08:55→20:33)
[2019-05-30] MEDS: ERTAPENEM 1 GM in SODIUM CHLORIDE 0.9% 50 ML IV SCH (14:15)
[2019-05-30 15:25] VITALS: BP 164/89
[2019-05-30 20:30] VITALS: BP 124/77
[2019-05-30] MEDS: ATORVASTATIN 80 MG TABLET PO SCH (20:32)
[2019-05-31 00:01] VITALS: BP 93/64
[2019-05-31 05:13] LABS: BASOPHILS # (AUTO) 0.02 x10^3/uL (0-0.1); BASOPHILS % (AUTO) 0 % (0-1); EOSINOPHILS # (AUTO) 0.24 x10^3/uL (0-0.4); EOSINOPHILS % (AUTO) 3 % (1-7); LYMPHOCYTES # (AUTO) 1.05 x10^3/uL (1-3.4); LYMPHOCYTES % (AUTO) 14 % (22-44); MD NO; MEAN CORPUSCULAR HEMOGLOBIN 26.9 pg (27.0-34.8); MEAN CORPUSCULAR HGB CONC 32.9 g/dL (32.4-35.8); MEAN CORPUSCULAR VOLUME 81.7 fL (80-100); MEAN PLATELET VOLUME 6.3 fL (7.4-10.4); MONOCYTES # (AUTO) 0.39 x10^3/uL (0.2-0.8); MONOCYTES % (AUTO) 5 % (2-9); NEUTROPHILS # (AUTO) 5.78 x10^3/uL (1.8-6.8); NEUTROPHILS % (AUTO) 77 % (42-75); PLATELET COUNT 330 x10^3/uL (130-400)
[2019-05-31 05:25] LABS: ALBUMIN 2.7 g/dL (3.4-5.0); ANION GAP 5 mmol/L (5-15); CALCIUM 8.5 mg/dL (8.5-10.1); CHLORIDE 99 mmol/L (98-107)
[2019-05-31 05:29] LABS: ALANINE AMINOTRANSFERASE 11 U/L (12-78); ALKALINE PHOSPHATASE 94 U/L (45-117); BILIRUBIN,TOTAL 0.4 mg/dL (0.2-1.0); CREATININE 0.71 mg/dL (0.55-1.02); TOTAL PROTEIN 6.4 g/dL (6.4-8.2)
[2019-05-31] MEDS: ASPIRIN 325 MG TABLET EC PO SCH (05:38)
[2019-05-31] MEDS: LEVOTHYROXINE 200 MCG TABLET PO SCH (05:39)
[2019-05-31 07:14] VITALS: BP 134/63
[2019-05-31] MEDS: SENNA/DOCUSATE TABLET PO SCH (09:26)
[2019-05-31] MEDS: SODIUM CHLORIDE FLUSH 10ML SYR IVF SCH ×2 (09:26→19:51)
[2019-05-31] MEDS: DULOXETINE 30 MG CAPSULE.DR PO SCH (09:27)
[2019-05-31] MEDS: LISINOPRIL 5 MG TABLET PO SCH (09:27)
[2019-05-31] MEDS: GABAPENTIN 300 MG CAPSULE PO SCH ×3 (09:27→19:51)
[2019-05-31] MEDS: FUROSEMIDE 40 MG TABLET PO SCH (09:27)
[2019-05-31] MEDS: ENOXAPARIN 40 MG/0.4 ML SQ SCH (09:28)
[2019-05-31] MEDS: ERTAPENEM 1 GM in SODIUM CHLORIDE 0.9% 50 ML IV SCH (12:56)
[2019-05-31 16:35] VITALS: BP 118/71
[2019-05-31 19:09] VITALS: BP 145/73
[2019-05-31] MEDS: ATORVASTATIN 80 MG TABLET PO SCH (19:51)
[2019-06-01 00:09] VITALS: BP 105/59
[2019-06-01] MEDS: ASPIRIN 325 MG TABLET EC PO SCH ×2 (05:09→08:57)
[2019-06-01 05:46] LABS: BASOPHILS # (AUTO) 0.01 x10^3/uL (0-0.1); BASOPHILS % (AUTO) 0 % (0-1); EOSINOPHILS # (AUTO) 0.24 x10^3/uL (0-0.4); EOSINOPHILS % (AUTO) 3 % (1-7); LYMPHOCYTES # (AUTO) 1.32 x10^3/uL (1-3.4); LYMPHOCYTES % (AUTO) 16 % (22-44); MD NO; MEAN CORPUSCULAR HEMOGLOBIN 26.6 pg (27.0-34.8); MEAN CORPUSCULAR HGB CONC 32.4 g/dL (32.4-35.8); MEAN CORPUSCULAR VOLUME 82.2 fL (80-100); MEAN PLATELET VOLUME 6.6 fL (7.4-10.4); MONOCYTES # (AUTO) 0.34 x10^3/uL (0.2-0.8); MONOCYTES % (AUTO) 4 % (2-9); NEUTROPHILS # (AUTO) 6.41 x10^3/uL (1.8-6.8); NEUTROPHILS % (AUTO) 77 % (42-75); PLATELET COUNT 333 x10^3/uL (130-400); RED BLOOD COUNT 4.05 x10^6/uL (3.82-5.3); RED CELL DISTRIBUTION WIDTH 17.9 % (9.6-15.2)
[2019-06-01 05:58] LABS: ANION GAP 7 mmol/L (5-15); CHLORIDE 99 mmol/L (98-107)
[2019-06-01 06:01] LABS: CREATININE 0.63 mg/dL (0.55-1.02)
[2019-06-01 08:11] VITALS: BP 122/60
[2019-06-01] MEDS: SENNA/DOCUSATE TABLET PO SCH (08:56)
[2019-06-01] MEDS: LEVOTHYROXINE 200 MCG TABLET PO SCH (08:56)
[2019-06-01] MEDS: SODIUM CHLORIDE FLUSH 10ML SYR IVF SCH ×2 (08:57→20:03)
[2019-06-01] MEDS: DULOXETINE 30 MG CAPSULE.DR PO SCH (08:57)
[2019-06-01] MEDS: LISINOPRIL 5 MG TABLET PO SCH (08:57)
[2019-06-01] MEDS: FUROSEMIDE 40 MG TABLET PO SCH (08:57)
[2019-06-01] MEDS: GABAPENTIN 300 MG CAPSULE PO SCH ×3 (08:57→20:03)
[2019-06-01] MEDS: ENOXAPARIN 40 MG/0.4 ML SQ SCH (08:58)
[2019-06-01 12:32] VITALS: BP 118/68
[2019-06-01] MEDS: ERTAPENEM 1 GM in SODIUM CHLORIDE 0.9% 50 ML IV SCH (13:16)
[2019-06-01 19:21] VITALS: BP 99/55
[2019-06-01] MEDS: ATORVASTATIN 80 MG TABLET PO SCH (20:03)
[2019-06-02 01:50] VITALS: BP 99/57
[2019-06-02 05:20] LABS: BASOPHILS # (AUTO) 0.01 x10^3/uL (0-0.1); BASOPHILS % (AUTO) 0 % (0-1); EOSINOPHILS # (AUTO) 0.16 x10^3/uL (0-0.4); EOSINOPHILS % (AUTO) 2 % (1-7); LYMPHOCYTES # (AUTO) 1.01 x10^3/uL (1-3.4); LYMPHOCYTES % (AUTO) 14 % (22-44); MD NO; MEAN CORPUSCULAR HEMOGLOBIN 26.5 pg (27.0-34.8); MEAN CORPUSCULAR VOLUME 82.8 fL (80-100); MEAN PLATELET VOLUME 6.6 fL (7.4-10.4); MONOCYTES # (AUTO) 0.37 x10^3/uL (0.2-0.8); MONOCYTES % (AUTO) 5 % (2-9); NEUTROPHILS # (AUTO) 5.81 x10^3/uL (1.8-6.8); NEUTROPHILS % (AUTO) 79 % (42-75); PLATELET COUNT 307 x10^3/uL (130-400); RED BLOOD COUNT 4.01 x10^6/uL (3.82-5.3); RED CELL DISTRIBUTION WIDTH 17.9 % (9.6-15.2)
[2019-06-02 05:30] LABS: ANION GAP 4 mmol/L (5-15); CALCIUM 9.2 mg/dL (8.5-10.1); CHLORIDE 98 mmol/L (98-107); CREATININE 0.67 mg/dL (0.55-1.02)
[2019-06-02 07:34] VITALS: BP 109/52
[2019-06-02] MEDS: LISINOPRIL 5 MG TABLET PO SCH ×2 (09:00→09:06)
[2019-06-02] MEDS: SENNA/DOCUSATE TABLET PO SCH (09:00)
[2019-06-02] MEDS: GABAPENTIN 300 MG CAPSULE PO SCH ×3 (09:06→21:19)
[2019-06-02] MEDS: ASPIRIN 325 MG TABLET EC PO SCH (09:06)
[2019-06-02] MEDS: FUROSEMIDE 40 MG TABLET PO SCH (09:06)
[2019-06-02] MEDS: DULOXETINE 30 MG CAPSULE.DR PO SCH (09:06)
[2019-06-02] MEDS: SODIUM CHLORIDE FLUSH 10ML SYR IVF SCH ×2 (09:07→21:46)
[2019-06-02] MEDS: LEVOTHYROXINE 200 MCG TABLET PO SCH (09:07)
[2019-06-02] MEDS: ENOXAPARIN 40 MG/0.4 ML SQ SCH (09:07)
[2019-06-02 09:09] VITALS: BP 97/52
[2019-06-02] MEDS: ERTAPENEM 1 GM in SODIUM CHLORIDE 0.9% 50 ML IV SCH (13:28)
[2019-06-02 13:52] VITALS: BP 90/57
[2019-06-02 19:19] VITALS: BP 110/60
[2019-06-02] MEDS: ATORVASTATIN 80 MG TABLET PO SCH (21:19)
[2019-06-03 01:10] VITALS: BP 109/57
[2019-06-03 05:22] LABS: BASOPHILS # (AUTO) 0.02 x10^3/uL (0-0.1); BASOPHILS % (AUTO) 0 % (0-1); EOSINOPHILS # (AUTO) 0.18 x10^3/uL (0-0.4); EOSINOPHILS % (AUTO) 3 % (1-7); LYMPHOCYTES # (AUTO) 1.05 x10^3/uL (1-3.4); LYMPHOCYTES % (AUTO) 15 % (22-44); MD NO; MEAN CORPUSCULAR HEMOGLOBIN 26.9 pg (27.0-34.8); MEAN CORPUSCULAR HGB CONC 32.8 g/dL (32.4-35.8); MEAN CORPUSCULAR VOLUME 82.2 fL (80-100); MEAN PLATELET VOLUME 6.4 fL (7.4-10.4); MONOCYTES # (AUTO) 0.48 x10^3/uL (0.2-0.8); MONOCYTES % (AUTO) 7 % (2-9); NEUTROPHILS # (AUTO) 5.23 x10^3/uL (1.8-6.8); NEUTROPHILS % (AUTO) 75 % (42-75); PLATELET COUNT 320 x10^3/uL (130-400); RED BLOOD COUNT 3.76 x10^6/uL (3.82-5.3); RED CELL DISTRIBUTION WIDTH 18.3 % (9.6-15.2)
[2019-06-03 05:30] LABS: CHLORIDE 97 mmol/L (98-107)
[2019-06-03 05:40] LABS: ANION GAP 3 mmol/L (5-15); CREATININE 0.69 mg/dL (0.55-1.02)
[2019-06-03 07:19] VITALS: BP 110/67
[2019-06-03] MEDS: LEVOTHYROXINE 200 MCG TABLET PO SCH (09:20)
[2019-06-03] MEDS: FUROSEMIDE 40 MG TABLET PO SCH (09:20)
[2019-06-03] MEDS: SENNA/DOCUSATE TABLET PO SCH (09:20)
[2019-06-03] MEDS: ASPIRIN 325 MG TABLET EC PO SCH (09:21)
[2019-06-03] MEDS: GABAPENTIN 300 MG CAPSULE PO SCH ×3 (09:21→21:37)
[2019-06-03] MEDS: LISINOPRIL 5 MG TABLET PO SCH (09:21)
[2019-06-03] MEDS: ENOXAPARIN 40 MG/0.4 ML SQ SCH (09:22)
[2019-06-03] MEDS: SODIUM CHLORIDE FLUSH 10ML SYR IVF SCH ×2 (09:22→21:38)
[2019-06-03] MEDS: DULOXETINE 30 MG CAPSULE.DR PO SCH (09:22)
[2019-06-03] MEDS: ERTAPENEM 1 GM in SODIUM CHLORIDE 0.9% 50 ML IV SCH (13:42)
[2019-06-03 14:04] VITALS: BP 117/73
[2019-06-03 19:24] VITALS: BP 100/61
[2019-06-03] MEDS: ATORVASTATIN 80 MG TABLET PO SCH (21:38)
[2019-06-04 00:56] VITALS: BP 106/61
[2019-06-04] MEDS: LEVOTHYROXINE 200 MCG TABLET PO SCH (05:15)
[2019-06-04] MEDS: ASPIRIN 325 MG TABLET EC PO SCH (05:18)
[2019-06-04 05:28] LABS: ANION GAP 5 mmol/L (5-15); CALCIUM 8.6 mg/dL (8.5-10.1); CHLORIDE 97 mmol/L (98-107); CREATININE 0.71 mg/dL (0.55-1.02)
[2019-06-04 05:33] LABS: BASOPHILS % (AUTO) 0 % (0-1); EOSINOPHILS # (AUTO) 0.04 x10^3/uL (0-0.4); EOSINOPHILS % (AUTO) 1 % (1-7); LYMPHOCYTES # (AUTO) 0.83 x10^3/uL (1-3.4); LYMPHOCYTES % (AUTO) 9 % (22-44); MD NO; MEAN CORPUSCULAR HEMOGLOBIN 26.8 pg (27.0-34.8); MEAN CORPUSCULAR HGB CONC 32.5 g/dL (32.4-35.8); MEAN CORPUSCULAR VOLUME 82.5 fL (80-100); MEAN PLATELET VOLUME 6.4 fL (7.4-10.4); MONOCYTES # (AUTO) 0.38 x10^3/uL (0.2-0.8); MONOCYTES % (AUTO) 4 % (2-9); NEUTROPHILS # (AUTO) 7.65 x10^3/uL (1.8-6.8); NEUTROPHILS % (AUTO) 86 % (42-75); PLATELET COUNT 331 x10^3/uL (130-400); RED BLOOD COUNT 3.88 x10^6/uL (3.82-5.3); RED CELL DISTRIBUTION WIDTH 17.9 % (9.6-15.2)
[2019-06-04 07:40] VITALS: BP 99/62
[2019-06-04] MEDS: GABAPENTIN 300 MG CAPSULE PO SCH ×3 (09:23→20:44)
[2019-06-04] MEDS: SENNA/DOCUSATE TABLET PO SCH (09:23)
[2019-06-04] MEDS: SODIUM CHLORIDE FLUSH 10ML SYR IVF SCH (09:23)
[2019-06-04] MEDS: DULOXETINE 30 MG CAPSULE.DR PO SCH (09:24)
[2019-06-04] MEDS: FUROSEMIDE 40 MG TABLET PO SCH (09:24)
[2019-06-04] MEDS: LISINOPRIL 5 MG TABLET PO SCH (09:25)
[2019-06-04] MEDS: ENOXAPARIN 40 MG/0.4 ML SQ SCH (09:26)
[2019-06-04] MEDS: ERTAPENEM 1 GM in SODIUM CHLORIDE 0.9% 50 ML IV SCH (13:04)
[2019-06-04 14:41] VITALS: BP 126/68
[2019-06-04 20:30] VITALS: BP 100/59
[2019-06-04] MEDS: ATORVASTATIN 80 MG TABLET PO SCH (20:44)
[2019-06-05 02:13] VITALS: BP 111/70
[2019-06-05 05:43] LABS: BASOPHILS # (AUTO) 0.01 x10^3/uL (0-0.1); BASOPHILS % (AUTO) 0 % (0-1); EOSINOPHILS # (AUTO) 0.16 x10^3/uL (0-0.4); EOSINOPHILS % (AUTO) 2 % (1-7); LYMPHOCYTES # (AUTO) 0.94 x10^3/uL (1-3.4); LYMPHOCYTES % (AUTO) 14 % (22-44); MD NO; MEAN CORPUSCULAR HEMOGLOBIN 26.7 pg (27.0-34.8); MEAN CORPUSCULAR HGB CONC 32.2 g/dL (32.4-35.8); MEAN CORPUSCULAR VOLUME 83.1 fL (80-100); MEAN PLATELET VOLUME 6.8 fL (7.4-10.4); MONOCYTES # (AUTO) 0.51 x10^3/uL (0.2-0.8); MONOCYTES % (AUTO) 8 % (2-9); NEUTROPHILS # (AUTO) 4.93 x10^3/uL (1.8-6.8); NEUTROPHILS % (AUTO) 75 % (42-75); PLATELET COUNT 330 x10^3/uL (130-400); RED BLOOD COUNT 3.87 x10^6/uL (3.82-5.3); RED CELL DISTRIBUTION WIDTH 17.9 % (9.6-15.2)
[2019-06-05] MEDS: LEVOTHYROXINE 200 MCG TABLET PO SCH (05:44)
[2019-06-05] MEDS: ASPIRIN 325 MG TABLET EC PO SCH (05:44)
[2019-06-05] MEDS: SODIUM CHLORIDE FLUSH 10ML SYR IVF SCH ×3 (05:45→20:46)
[2019-06-05 05:49] LABS: ANION GAP 6 mmol/L (5-15); CHLORIDE 97 mmol/L (98-107)
[2019-06-05 07:50] VITALS: BP 128/54
[2019-06-05] MEDS: ENOXAPARIN 40 MG/0.4 ML SQ SCH (09:03)
[2019-06-05] MEDS: GABAPENTIN 300 MG CAPSULE PO SCH ×3 (09:03→20:46)
[2019-06-05] MEDS: LISINOPRIL 5 MG TABLET PO SCH (09:04)
[2019-06-05] MEDS: DULOXETINE 30 MG CAPSULE.DR PO SCH (09:04)
[2019-06-05] MEDS: SENNA/DOCUSATE TABLET PO SCH (09:04)
[2019-06-05] MEDS: FUROSEMIDE 40 MG TABLET PO SCH (09:05)
[2019-06-05] MEDS: LINEZOLID PMX 600MG/300ML 300 ML IV SCH (13:04)
[2019-06-05] MEDS: ERTAPENEM 1 GM in SODIUM CHLORIDE 0.9% 50 ML IV SCH (15:12)
[2019-06-05 16:19] VITALS: BP 127/61
[2019-06-05 20:38] VITALS: BP 114/68
[2019-06-05] MEDS: ATORVASTATIN 80 MG TABLET PO SCH (20:46)
[2019-06-06 01:05] VITALS: BP 117/72
[2019-06-06] MEDS: LINEZOLID PMX 600MG/300ML 300 ML IV SCH ×2 (01:05→12:46)
[2019-06-06 05:13] LABS: ANION GAP 3 mmol/L (5-15); CALCIUM 8.5 mg/dL (8.5-10.1); CHLORIDE 98 mmol/L (98-107); CREATININE 0.63 mg/dL (0.55-1.02)
[2019-06-06 05:15] LABS: BASOPHILS # (AUTO) 0.03 x10^3/uL (0-0.1); BASOPHILS % (AUTO) 0 % (0-1); EOSINOPHILS # (AUTO) 0.23 x10^3/uL (0-0.4); EOSINOPHILS % (AUTO) 3 % (1-7); LYMPHOCYTES # (AUTO) 0.99 x10^3/uL (1-3.4); LYMPHOCYTES % (AUTO) 12 % (22-44); MD NO; MEAN CORPUSCULAR HEMOGLOBIN 27.1 pg (27.0-34.8); MEAN CORPUSCULAR HGB CONC 32.8 g/dL (32.4-35.8); MEAN CORPUSCULAR VOLUME 82.6 fL (80-100); MEAN PLATELET VOLUME 6.6 fL (7.4-10.4); MONOCYTES # (AUTO) 0.44 x10^3/uL (0.2-0.8); MONOCYTES % (AUTO) 5 % (2-9); NEUTROPHILS # (AUTO) 6.39 x10^3/uL (1.8-6.8); NEUTROPHILS % (AUTO) 79 % (42-75); PLATELET COUNT 344 x10^3/uL (130-400); RED BLOOD COUNT 3.59 x10^6/uL (3.82-5.3); RED CELL DISTRIBUTION WIDTH 17.6 % (9.6-15.2)
[2019-06-06 05:18] LABS: HCT (SEDRATE) 29.7 % (34.6-47.8)
[2019-06-06] MEDS: LEVOTHYROXINE 200 MCG TABLET PO SCH (06:19)
[2019-06-06] MEDS: ASPIRIN 325 MG TABLET EC PO SCH (06:19)
[2019-06-06 06:31] VITALS: BP 113/68
[2019-06-06] MEDS: GABAPENTIN 300 MG CAPSULE PO SCH ×3 (09:00→21:08)
[2019-06-06] MEDS ORDERED: GABAPENTIN 100 MG CAPSULE ONE (09:27)
[2019-06-06] MEDS: SENNA/DOCUSATE TABLET PO SCH (09:33)
[2019-06-06] MEDS: DULOXETINE 30 MG CAPSULE.DR PO SCH (09:34)
[2019-06-06] MEDS: FUROSEMIDE 40 MG TABLET PO SCH (09:35)
[2019-06-06] MEDS: SODIUM CHLORIDE FLUSH 10ML SYR IVF SCH ×2 (09:36→21:09)
[2019-06-06] MEDS: ENOXAPARIN 40 MG/0.4 ML SQ SCH (09:36)
[2019-06-06] MEDS: LISINOPRIL 5 MG TABLET PO SCH (09:36)
[2019-06-06 14:10] VITALS: BP 99/62
[2019-06-06] MEDS: ERTAPENEM 1 GM in SODIUM CHLORIDE 0.9% 50 ML IV SCH (15:08)
[2019-06-06 18:51] VITALS: BP 121/51
[2019-06-06] MEDS: ATORVASTATIN 80 MG TABLET PO SCH (21:08)
[2019-06-07] MEDS: LINEZOLID PMX 600MG/300ML 300 ML IV SCH ×2 (00:42→12:56)
[2019-06-07 00:52] VITALS: BP 136/66
[2019-06-07 05:22] LABS: ANION GAP 3 mmol/L (5-15); CALCIUM 8.8 mg/dL (8.5-10.1); CHLORIDE 99 mmol/L (98-107)
[2019-06-07 05:26] LABS: CREATININE 0.59 mg/dL (0.55-1.02)
[2019-06-07 05:31] LABS: BASOPHILS % (AUTO) 0 % (0-1); EOSINOPHILS # (AUTO) 0.27 x10^3/uL (0-0.4); EOSINOPHILS % (AUTO) 4 % (1-7); LYMPHOCYTES # (AUTO) 1.06 x10^3/uL (1-3.4); LYMPHOCYTES % (AUTO) 17 % (22-44); MD NO; MEAN CORPUSCULAR HGB CONC 32.8 g/dL (32.4-35.8); MEAN CORPUSCULAR VOLUME 82.3 fL (80-100); MEAN PLATELET VOLUME 6.8 fL (7.4-10.4); MONOCYTES # (AUTO) 0.45 x10^3/uL (0.2-0.8); MONOCYTES % (AUTO) 7 % (2-9); NEUTROPHILS # (AUTO) 4.51 x10^3/uL (1.8-6.8); NEUTROPHILS % (AUTO) 72 % (42-75); PLATELET COUNT 351 x10^3/uL (130-400); RED BLOOD COUNT 3.58 x10^6/uL (3.82-5.3); RED CELL DISTRIBUTION WIDTH 17.8 % (9.6-15.2)
[2019-06-07] MEDS: ASPIRIN 325 MG TABLET EC PO SCH (06:07)
[2019-06-07] MEDS: LEVOTHYROXINE 200 MCG TABLET PO SCH (06:08)
[2019-06-07 08:43] VITALS: BP 125/53
[2019-06-07] MEDS: LISINOPRIL 5 MG TABLET PO SCH (08:43)
[2019-06-07] MEDS: SENNA/DOCUSATE TABLET PO SCH (08:46)
[2019-06-07] MEDS: ENOXAPARIN 40 MG/0.4 ML SQ SCH (08:47)
[2019-06-07] MEDS: FUROSEMIDE 40 MG TABLET PO SCH (08:47)
[2019-06-07] MEDS: GABAPENTIN 300 MG CAPSULE PO SCH ×3 (08:47→22:06)
[2019-06-07] MEDS: SODIUM CHLORIDE FLUSH 10ML SYR IVF SCH ×2 (08:48→22:08)
[2019-06-07] MEDS: DULOXETINE 30 MG CAPSULE.DR PO SCH (10:20)
[2019-06-07 14:31] VITALS: BP 113/52
[2019-06-07 20:54] VITALS: BP 134/74
[2019-06-07] MEDS: ATORVASTATIN 80 MG TABLET PO SCH (22:06)
[2019-06-08] MEDS: LINEZOLID PMX 600MG/300ML 300 ML IV SCH ×2 (00:39→12:52)
[2019-06-08 01:21] VITALS: BP 101/57
[2019-06-08 05:21] LABS: BASOPHILS # (AUTO) 0.02 x10^3/uL (0-0.1); BASOPHILS % (AUTO) 0 % (0-1); EOSINOPHILS # (AUTO) 0.23 x10^3/uL (0-0.4); EOSINOPHILS % (AUTO) 4 % (1-7); LYMPHOCYTES # (AUTO) 1.07 x10^3/uL (1-3.4); LYMPHOCYTES % (AUTO) 19 % (22-44); MD NO; MEAN CORPUSCULAR HEMOGLOBIN 27.4 pg (27.0-34.8); MEAN PLATELET VOLUME 6.6 fL (7.4-10.4); MONOCYTES # (AUTO) 0.35 x10^3/uL (0.2-0.8); MONOCYTES % (AUTO) 6 % (2-9); NEUTROPHILS # (AUTO) 3.85 x10^3/uL (1.8-6.8); NEUTROPHILS % (AUTO) 70 % (42-75); PLATELET COUNT 390 x10^3/uL (130-400); RED BLOOD COUNT 3.66 x10^6/uL (3.82-5.3); RED CELL DISTRIBUTION WIDTH 16.8 % (9.6-15.2)
[2019-06-08 05:33] LABS: ALBUMIN 2.5 g/dL (3.4-5.0); ANION GAP 2 mmol/L (5-15); CHLORIDE 98 mmol/L (98-107)
[2019-06-08 05:37] LABS: ALANINE AMINOTRANSFERASE 8 U/L (12-78); ALKALINE PHOSPHATASE 102 U/L (45-117); BILIRUBIN,TOTAL 0.5 mg/dL (0.2-1.0); CREATININE 0.59 mg/dL (0.55-1.02); TOTAL PROTEIN 6.4 g/dL (6.4-8.2)
[2019-06-08] MEDS: LEVOTHYROXINE 200 MCG TABLET PO SCH (05:40)
[2019-06-08] MEDS: ASPIRIN 325 MG TABLET EC PO SCH (05:40)
[2019-06-08 07:54] VITALS: BP 134/74
[2019-06-08] MEDS: SODIUM CHLORIDE FLUSH 10ML SYR IVF SCH ×2 (09:00→20:39)
[2019-06-08] MEDS: FUROSEMIDE 40 MG TABLET PO SCH (09:51)
[2019-06-08] MEDS: LISINOPRIL 5 MG TABLET PO SCH (09:51)
[2019-06-08] MEDS: GABAPENTIN 300 MG CAPSULE PO SCH ×3 (09:51→20:39)
[2019-06-08] MEDS: DULOXETINE 30 MG CAPSULE.DR PO SCH (09:52)
[2019-06-08] MEDS: ENOXAPARIN 40 MG/0.4 ML SQ SCH (09:52)
[2019-06-08] MEDS: SENNA/DOCUSATE TABLET PO SCH (09:52)
[2019-06-08 14:49] VITALS: BP 121/72
[2019-06-08 18:43] VITALS: BP 132/76
[2019-06-08] MEDS: ATORVASTATIN 80 MG TABLET PO SCH (20:39)
[2019-06-08] MEDS: LINEZOLID 600 MG TABLET PO SCH (20:39)
[2019-06-09 00:05] VITALS: BP 106/64
[2019-06-09 05:15] LABS: ANION GAP 0 mmol/L (5-15); BASOPHILS # (AUTO) 0.02 x10^3/uL (0-0.1); BASOPHILS % (AUTO) 0 % (0-1); CALCIUM 8.4 mg/dL (8.5-10.1); CHLORIDE 100 mmol/L (98-107); CREATININE 0.67 mg/dL (0.55-1.02); EOSINOPHILS # (AUTO) 0.28 x10^3/uL (0-0.4); EOSINOPHILS % (AUTO) 5 % (1-7); LYMPHOCYTES # (AUTO) 1.21 x10^3/uL (1-3.4); LYMPHOCYTES % (AUTO) 20 % (22-44); MD NO; MEAN CORPUSCULAR HEMOGLOBIN 26.7 pg (27.0-34.8); MEAN CORPUSCULAR VOLUME 83.2 fL (80-100); MEAN PLATELET VOLUME 6.7 fL (7.4-10.4); MONOCYTES # (AUTO) 0.38 x10^3/uL (0.2-0.8); MONOCYTES % (AUTO) 6 % (2-9); NEUTROPHILS # (AUTO) 4.31 x10^3/uL (1.8-6.8); NEUTROPHILS % (AUTO) 69 % (42-75); PLATELET COUNT 398 x10^3/uL (130-400); RED BLOOD COUNT 3.62 x10^6/uL (3.82-5.3); RED CELL DISTRIBUTION WIDTH 16.9 % (9.6-15.2)
[2019-06-09] MEDS: ASPIRIN 325 MG TABLET EC PO SCH (05:35)
[2019-06-09] MEDS: LEVOTHYROXINE 200 MCG TABLET PO SCH (05:35)
[2019-06-09 07:44] VITALS: BP 137/72
[2019-06-09] MEDS: LINEZOLID 600 MG TABLET PO SCH (08:42)
[2019-06-09] MEDS: GABAPENTIN 300 MG CAPSULE PO SCH (08:42)
[2019-06-09] MEDS: DULOXETINE 30 MG CAPSULE.DR PO SCH (08:42)
[2019-06-09] MEDS: LISINOPRIL 5 MG TABLET PO SCH (08:42)
[2019-06-09] MEDS: SODIUM CHLORIDE FLUSH 10ML SYR IVF SCH (08:43)
[2019-06-09] MEDS: FUROSEMIDE 40 MG TABLET PO SCH (08:43)
[2019-06-09] MEDS: ENOXAPARIN 40 MG/0.4 ML SQ SCH (08:43)
[2019-06-09] MEDS: SENNA/DOCUSATE TABLET PO SCH (08:43)
== END 2019-06-09 12:12 | disposition home health service (06) | DRG 689 ==
LOC: ED 12:59 → EDIP 18:41 → 3N 19:50
PROVIDERS: ADMIT Family Medicine; ATTEND Hospitalist
DX: N39.0 Urinary tract infection, site not specified (principal); E43 Unspecified severe protein-calorie malnutrition; I83.209 Varicose veins of unspecified lower extremity with both ulcer of unspecified site and inflammation; I50.32 Chronic diastolic (congestive) heart failure; J96.10 Chronic respiratory failure, unspecified whether with hypoxia or hypercapnia; L97.909 Non-pressure chronic ulcer of unspecified part of unspecified lower leg with unspecified severity; I83.009 Varicose veins of unspecified lower extremity with ulcer of unspecified site; M17.12 Unilateral primary osteoarthritis, left knee; E66.01 Morbid (severe) obesity due to excess calories; J44.9 Chronic obstructive pulmonary disease, unspecified; I11.0 Hypertensive heart disease with heart failure; E03.9 Hypothyroidism, unspecified; E78.5 Hyperlipidemia, unspecified; G89.29 Other chronic pain; Z88.5 Allergy status to narcotic agent; Z91.048 Other nonmedicinal substance allergy status; M16.11 Unilateral primary osteoarthritis, right hip; Z66 Do not resuscitate; Z87.440 Personal history of urinary (tract) infections; Z87.891 Personal history of nicotine dependence; Z90.710 Acquired absence of both cervix and uterus; Z96.641 Presence of right artificial hip joint; Z68.29 Body mass index [BMI] 29.0-29.9, adult
CPT/HCPCS: 36415; 80048; 80053; 81001; 85025; 85651; 86140; 86480; 87077; 87086; 87106; 87186; 99285; G0378; J1335; J1644; J1650; J2020

== ENCOUNTER → 2019-08-07 | Outpatient (CLI) | payer MEDICARE ==
[2019-08-07 16:14] LABS: ANION GAP 7 mmol/L (5-15); CALCIUM 9.1 mg/dL (8.5-10.1); CHLORIDE 104 mmol/L (98-107); CREATININE 1.13 mg/dL (0.55-1.02)
== END | disposition home or self-care (01) ==
LOC: CFH 12:33
PROVIDERS: ATTEND Internal Medicine Cardiovascular Disease
DX: I34.8 Other nonrheumatic mitral valve disorders (principal); I11.9 Hypertensive heart disease without heart failure; R06.02 Shortness of breath; I35.0 Nonrheumatic aortic (valve) stenosis; I65.29 Occlusion and stenosis of unspecified carotid artery; Z95.2 Presence of prosthetic heart valve
CPT/HCPCS: 36415; 80048; 83880; 93306

== ENCOUNTER → 2020-08-05 | Outpatient (CLI) | payer MEDICARE ==
[~2020-08-05] MED LIST changes: -ACYC-113 PO; +ACYC200C13 PO; -ASPI-650 PO; +ASPI325T20 PO; -FLUO10CA14 PO; +FLUO10CA15 PO; -LISI1TAB19 PO; +LISI1TAB39 PO; -LISI40TA PO; +LISI40TA9 PO; -OMEP40CA42 PO; +OMEP40CA8 PO; +OMNIPAQUE 350 MG/ML, 100ML BOTTLE ONE; -OXYC5TAB3 PO; +OXYC5TAB98 PO; +SULF-23 PO; -SULF1TAB24 PO
[2020-08-05 11:49] LABS: CREATININE 0.81 mg/dL (0.55-1.02)
== END | disposition home or self-care (01) ==
LOC: RAD 11:05
PROVIDERS: ATTEND Physician Assistant
DX: K57.30 Diverticulosis of large intestine without perforation or abscess without bleeding (principal); M48.56XA Collapsed vertebra, not elsewhere classified, lumbar region, initial encounter for fracture; R91.8 Other nonspecific abnormal finding of lung field
CPT/HCPCS: 36415; 74177; 82565; Q9967